=== PATIENT | female | born 1960 | race Caucasian/White ===

== ENCOUNTER 2019-02-01 21:59 | Inpatient (IN) | payer MEDICARE ==
--- NOTE | 2019-02-01 22:33 | ED ---
General Adult HPI - General Chief complaint: Urogenital Stated complaint: Fever Time Seen by Provider: 02/01/19 22:12 Source: patient, EMS Mode of arrival: EMS Limitations: no limitations - History of Present Illness Initial comments: This patient is a 58-year-old woman who states she was in usual state of health until approximately 2 hours ago. At that time the patient started feeling hot and cold. She was feeling an urge to urinate, and having dysuria as well. Onset/Timin -: hour(s) Radiation: non-radiation Quality: burning Consistency: constant Improves with: none Worsens with: none Treatments Prior to Arrival: none - Related Data Home Medications Medication Instructions Recorded Confirmed Albuterol Nebulized [Ventolin 2.5 mg INHALATION RT-Q6H PRN 06/21/15 02/01/19 Nebulized] Albuterol Sulfate [Proair Hfa] 2 puff INHALATION RT-Q6H PRN 06/21/15 02/01/19 Aspirin 81 mg PO DAILY 06/21/15 02/01/19 Atorvastatin [Lipitor] 20 mg PO HS 06/21/15 02/01/19 INSULIN ASPART (NovoLOG) [NovoLOG 30 unit SQ AC-TID 06/21/15 02/01/19 (formulary)] INSULIN ASPART (NovoLOG) [NovoLOG See Protocol SQ AC-TID 06/21/15 02/01/19 (formulary)] Metoprolol Succinate [Toprol XL] 12.5 mg PO HS 06/21/15 02/01/19 Canagliflozin [Invokana] 300 mg PO BID 02/01/19 02/01/19 Cranberry Fruit Extract [Cranberry] 200 mg PO BID PRN 02/01/19 02/01/19 Insulin Glargine [Lantus] 60 unit SQ BID 02/01/19 02/01/19 Levothyroxine Sodium [Synthroid] 125 mcg PO DAILY 02/01/19 02/01/19 Melatonin 5 mg PO HS 02/01/19 02/01/19 Omeprazole 40 mg PO QAM 02/01/19 02/01/19 Allergies Allergy/AdvReac Type Severity Reaction Status Date / Time carvedilol [From Coreg] Allergy Rash/Hives Verified 02/01/19 22:12 Review of Systems ROS Statement: Those systems with pertinent positive or pertinent negative responses have been documented in the HPI. ROS Other: All systems not noted in ROS Statement are negative. Constitutional: Reports: fever, chills, weakness (Generalized weakness) Respiratory: Denies: cough, dyspnea Cardiovascular: Denies: chest pain, palpitations, edema Gastrointestinal: Denies: abdominal pain, nausea, vomiting Genitourinary: Reports: urgency, dysuria, frequency Musculoskeletal: Reports: back pain Skin: Denies: rash Neurological: Denies: headache, weakness, numbness Past Medical History Past Medical History: Asthma, Coronary Artery Disease (CAD), Cancer, Heart Failure, COPD, Diabetes Mellitus, GERD/Reflux, Hyperlipidemia, Hypertension, Osteoarthritis (OA), Sleep Apnea/CPAP/BIPAP, Thyroid Disorder Additional Past Medical History / Comment(s): HX MIGRAINES. DONALD BREAST CA. 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 USES CPAP. History of Any Multi-Drug Resistant Organisms: None Reported Past Surgical History: Breast Surgery, Cholecystectomy, Hysterectomy, Joint Replacement, Orthopedic Surgery Additional Past Surgical History / Comment(s): D&C'S. DONALD MASTECTOMY. DONALD KNEE ARTHROSCOPIES. EXC 2 BENIGN TUMORS FROM BACK. REPAIR FX JAW CHILD, TOTAL RIGHT KNEE Past Anesthesia/Blood Transfusion Reactions: Previous Problems w/ Anesthesia, Motion Sickness, Postoperative Nausea & Vomiting (PONV) Additional Past Anesthesia/Blood Transfusion Reaction / Comment(s): TAKES LONG TIME TO AWAKEN, OCC NAUSEA. Past Psychological History: No Psychological Hx Reported Smoking Status: Former smoker Past Alcohol Use History: None Reported Past Drug Use History: None Reported - Past Family History Mother Family Medical History: Deep Vein Thrombosis (DVT) Sister(s) Family Medical History: Cancer General Exam Limitations: no limitations General appearance: alert, in no apparent distress Head exam: Present: atraumatic, normocephalic Eye exam: Present: normal appearance. Absent: scleral icterus, conjunctival injection ENT exam: Present: normal oropharynx Neck exam: Present: normal inspection, full ROM. Absent: meningismus Respiratory exam: Present: normal lung sounds bilaterally. Absent: respiratory distress, wheezes, rales, rhonchi, stridor Cardiovascular Exam: Present: normal rhythm, tachycardia (Rate approximately 120), normal heart sounds. Absent: systolic murmur, diastolic murmur, rubs, gallop GI/Abdominal exam: Present: soft. Absent: distended, tenderness, guarding, rebound, mass Extremities exam: Present: normal inspection, normal capillary refill. Absent: pedal edema, calf tenderness Back exam: Present: normal inspection. Absent: CVA tenderness (R), CVA tenderness (L) Neurological exam: Present: alert Skin exam: Present: warm, dry, intact, normal color. Absent: rash Course Vital Signs 02/01/19 02/01/19 02/02/19 22:09 23:10 00:00 Temperature 100 F H 101.2 F H 100.8 F H Pulse Rate 119 H 106 H 94 Respiratory 18 18 18 Rate Blood Pressure 143/74 134/86 113/54 O2 Sat by Pulse 97 95 97 Oximetry 02/02/19 01:08 Temperature 98.9 F Pulse Rate 97 Respiratory 17 Rate Blood Pressure 108/62 O2 Sat by Pulse 95 Oximetry EKG Findings - EKG Results: EKG: interpreted by VAUGHN, sinus rhythm, normal axis EKG shows: tachycardia (Rate 101 bpm) - Blocks, [place], Hypertrophy, ST Abn: AV and intraventricular conduction: left bundle branch block (fixed/intermittent, complete/incomplete) Medical Decision Making - Lab Data Result diagrams: 02/01/19 22:30 02/01/19 22:30 Lab Results 02/01/19 02/01/19 02/01/19 Range/Units 22:30 22:30 22:30 WBC 15.1 H (3.8-10.6) k/uL RBC 5.81 H (3.80-5.40) m/uL Hgb 16.5 H (11.4-16.0) gm/dL Hct 48.5 H (34.0-46.0) % MCV 83.3 (80.0-100.0) fL MCH 28.4 (25.0-35.0) pg MCHC 34.1 (31.0-37.0) g/dL RDW 14.7 (11.5-15.5) % Plt Count 191 (150-450) k/uL Neutrophils % (Manual) 76 % Band Neutrophils % 20 % Lymphocytes % (Manual) 3 % Monocytes % (Manual) 2 % Neutrophils # (Manual) 14.40 H (1.3-7.7) k/uL Lymphocytes # (Manual) 0.45 L (1.0-4.8) k/uL Monocytes # (Manual) 0.30 (0-1.0) k/uL Nucleated RBCs 0 (0-0) /100 WBC Manual Slide Review Performed PT (9.0-12.0) sec INR (<1.2) APTT (22.0-30.0) sec Sodium 140 (137-145) mmol/L Potassium 4.4 (3.5-5.1) mmol/L Chloride 108 H (98-107) mmol/L Carbon Dioxide 20 L (22-30) mmol/L Anion Gap 12 mmol/L BUN 22 H (7-17) mg/dL Creatinine 0.89 (0.52-1.04) mg/dL Est GFR (CKD-EPI)AfAm 82 (>60 ml/min/1.73 sqM) Est GFR (CKD-EPI)NonAf 71 (>60 ml/min/1.73 sqM) Glucose 215 H (74-99) mg/dL Plasma Lactic Acid Dixon 1.9 (0.7-2.0) mmol/L Calcium 10.0 (8.4-10.2) mg/dL Total Bilirubin 1.0 (0.2-1.3) mg/dL AST 27 (14-36) U/L ALT 16 (9-52) U/L Alkaline Phosphatase 106 (38-126) U/L Total Protein 7.2 (6.3-8.2) g/dL Albumin 3.9 (3.5-5.0) g/dL Urine Color Urine Appearance (Clear) Urine pH (5.0-8.0) Ur Specific [place] (1.001-1.035) Urine Protein (Negative) Urine Glucose (UA) (Negative) Urine Ketones (Negative) Urine Blood (Negative) Urine Nitrite (Negative) Urine Bilirubin (Negative) Urine Urobilinogen (<2.0) mg/dL Ur Leukocyte Esterase (Negative) Urine RBC (0-5) /hpf Urine WBC (0-5) /hpf Urine WBC Clumps (None) /hpf Ur Squamous Epith Cells (0-4) /hpf Urine Bacteria (None) /hpf Urine Mucus (None) /hpf 02/01/19 02/01/19 Range/Units 22:30 22:30 WBC (3.8-10.6) k/uL RBC (3.80-5.40) m/uL Hgb (11.4-16.0) gm/dL Hct (34.0-46.0) % MCV (80.0-100.0) fL MCH (25.0-35.0) pg MCHC (31.0-37.0) g/dL RDW (11.5-15.5) % Plt Count (150-450) k/uL Neutrophils % (Manual) % Band Neutrophils % % Lymphocytes % (Manual) % Monocytes % (Manual) % Neutrophils # (Manual) (1.3-7.7) k/uL Lymphocytes # (Manual) (1.0-4.8) k/uL Monocytes # (Manual) (0-1.0) k/uL Nucleated RBCs (0-0) /100 WBC Manual Slide Review PT 10.6 (9.0-12.0) sec INR 1.0 (<1.2) APTT 22.2 (22.0-30.0) sec Sodium (137-145) mmol/L Potassium (3.5-5.1) mmol/L Chloride (98-107) mmol/L Carbon Dioxide (22-30) mmol/L Anion Gap mmol/L BUN (7-17) mg/dL Creatinine (0.52-1.04) mg/dL Est GFR (CKD-EPI)AfAm (>60 ml/min/1.73 sqM) Est GFR (CKD-EPI)NonAf (>60 ml/min/1.73 sqM) Glucose (74-99) mg/dL Plasma Lactic Acid [place] (0.7-2.0) mmol/L Calcium (8.4-10.2) mg/dL Total Bilirubin (0.2-1.3) mg/dL AST (14-36) U/L ALT (9-52) U/L Alkaline Phosphatase (38-126) U/L Total Protein (6.3-8.2) g/dL Albumin (3.5-5.0) g/dL Urine Color Light Yellow Urine Appearance Cloudy H (Clear) Urine pH 5.5 (5.0-8.0) Ur Specific [place] 1.011 (1.001-1.035) Urine Protein Trace H (Negative) Urine Glucose (UA) 4+ H (Negative) Urine Ketones Negative (Negative) Urine Blood Large H (Negative) Urine Nitrite Positive H (Negative) Urine Bilirubin Negative (Negative) Urine Urobilinogen <2.0 (<2.0) mg/dL Ur Leukocyte Esterase Large H (Negative) Urine RBC 168 H (0-5) /hpf Urine WBC >182 H (0-5) /hpf Urine WBC Clumps Many H (None) /hpf Ur Squamous Epith Cells 4 (0-4) /hpf Urine Bacteria Few H (None) /hpf Urine Mucus Rare H (None) /hpf Disposition Clinical Impression: Urinary tract infection, Diabetes Disposition: ADMITTED IP TO THIS HOSP Condition: Fair Referrals: Jennifer Veras MD [Primary Care Provider] - 1-2 days
[2019-02-01 23:10] LABS: HCT 48.5 % (34.0-46.0); HGB 16.5 gm/dL (11.4-16.0); MCH 28.4 pg (25.0-35.0); MCHC 34.1 g/dL (31.0-37.0); MCV 83.3 fL (80.0-100.0); Mean Platelet Volume 6.8; Platelet Count 191 k/uL (150-450); RBC 5.81 m/uL (3.80-5.40); RDW 14.7 % (11.5-15.5); WBC 15.1 k/uL (3.8-10.6)
[2019-02-01] MEDS: SODIUM CHLORIDE 0.9% 500 ML 500 ML IV SCH (23:12)
[2019-02-01] MEDS ORDERED: ACETAMINOPHEN TAB 325 MG TAB PO STA (23:15)
[2019-02-01 23:26] LABS: Albumin 3.9 g/dL (3.5-5.0); Potassium 4.4 mmol/L (3.5-5.1); Total Protein 7.2 g/dL (6.3-8.2)
[2019-02-01 23:38] LABS: Appearance,Urine Cloudy (Clear); Bacteria,Urine Few /hpf; Bilirubin,Urine Negative (Negative); Blood,Urine Large (Negative); Color,Urine Light Yellow; Glucose,Urine (UA) 4+ (Negative); Ketones,Urine Negative (Negative); Leukocyte Esterase,Urine Large (Negative); Mucus,Urine Rare /hpf; Nitrite,Urine Positive (Negative); PH, Urine 5.5 (5.0-8.0); Partial Thromboplastin Time 22.2 sec (22.0-30.0); Protein,Urine Trace (Negative); Prothrombin Time 10.6 sec (9.0-12.0); RBC,Urine 168 /hpf (0-5); Specific Gravity,Urine 1.011 (1.001-1.035); Squamous Epithelial Cell,Urine 4 /hpf (0-4); Urobilinogen,Urine <2.0 mg/dL (<2.0); WBC,Urine >182 /hpf (0-5)
[2019-02-01] MEDS ORDERED: SODIUM CHLORIDE 0.9% 1,000 ML IV ONE (23:53)
[2019-02-01] MEDS ORDERED: INSULIN REGULAR 100 UNIT/ML VIAL SQ STA (23:53)
[2019-02-02] MEDS: SODIUM CHLORIDE 0.9% 500 ML 500 ML IV SCH (00:03)
[2019-02-02 01:35] LABS: Band Neutrophils % 20 %; Lymphocytes # (M) 0.45 k/uL (1.0-4.8); Neutrophils % (M) 76 %; Nucleated Red Blood Cells 0 /100 WBC (0-0); Total Cells Counted 200
[2019-02-02] MEDS ORDERED: ALBUTEROL NEBULIZED 2.5 MG/3 ML INHALATION PRN (02:06)
[2019-02-02 02:33] LABS: Glucose,Whole Blood 162 mg/dL (75-99)
[2019-02-02] MEDS: SODIUM CHLORIDE 0.9% 1,000 ML IV SCH ×4 (02:35→21:09)
[2019-02-02 03:17] VITALS: BMI 40.3
[2019-02-02] MEDS: LEVOTHYROXINE 125 MCG TAB PO SCH (05:51)
[2019-02-02] MEDS: INSULIN ASPART (NovoLOG) 100 UNIT/ML VIAL SQ SCH ×3 (07:51→17:34)
[2019-02-02] MEDS: NON-FORMULARY DRUG (Canagliflozin [Invokana] 300 MG) PO SCH ×3 (07:51→21:00)
[2019-02-02] MEDS: INSULIN DETEMIR (LEVEMIR) 100 UNIT/ML SYR SQ SCH ×2 (07:51→20:57)
[2019-02-02] MEDS: ASPIRIN 81 MG PO SCH (07:51)
[2019-02-02] MEDS: PANTOPRAZOLE 40 MG TABLET PO SCH (07:51)
[2019-02-02 07:59] LABS: Glucose,Whole Blood 186 mg/dL (75-99)
[2019-02-02 11:41] LABS: Glucose,Whole Blood 137 mg/dL (75-99)
[2019-02-02] MEDS: ACETAMINOPHEN TAB 325 MG TAB PO PRN ×2 (13:25→21:06)
--- NOTE | 2019-02-02 13:47 | P.HPIM ---
History of Present Illness Patient presents 58-year-old female came in with dysuria increased urinary frequency and fever chills found to have significant abnormality a urine with a highly elevated red blood cell count patient is admitted for sepsis secondary to urinary tract infection patient was comparing of right flank pain yesterday which resolved at this time which repair flank pain was sharp in nature. Patient does have leukocytosis, that is anion gap but lactic acid was not obtained patient received IV fluids. Patient is feeling much better today patient was started on Rocephin urine cultures blood cultures were obtained I'm awaiting those cultures at this time. Denied any frequent UTIs in the past Review of Systems REVIEW OF SYSTEMS: CONSTITUTIONAL: No fever, no malaise, no fatigue. HEENT: No recent visual problems or hearing problems. Denied any sore throat. CARDIOVASCULAR: No chest pain, orthopnea, PND, no palpitations, no syncope. PULMONARY: No shortness of breath, no cough, no hemoptysis. GASTROINTESTINAL: No diarrhea, no nausea, no vomiting, no abdominal pain. NEUROLOGICAL: No headaches, no weakness, no numbness. HEMATOLOGICAL: Denies any bleeding or petechiae. GENITOURINARY: As mentioned above MUSCULOSKELETAL/RHEUMATOLOGICAL: Denies any joint pain, swelling, or any muscle pain. ENDOCRINE: Denies any polyuria or polydipsia. The rest of the 14-point review of systems is negative. Past Medical History Past Medical History: Asthma, Cancer, Heart Failure, COPD, Diabetes Mellitus, GERD/Reflux, Hyperlipidemia, Hypertension, Osteoarthritis (OA), Sleep Apnea/CPAP/BIPAP, Thyroid Disorder Additional Past Medical History / Comment(s): HX MIGRAINES. DONALD BREAST CA. 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 USES CPAP. History of Any Multi-Drug Resistant Organisms: None Reported Past Surgical History: Breast Surgery, Cholecystectomy, Hysterectomy, Joint Replacement, Orthopedic Surgery Additional Past Surgical History / Comment(s): D&C'S. DONALD MASTECTOMY. DONALD KNEE ARTHROSCOPIES. EXC 2 BENIGN TUMORS FROM BACK. REPAIR FX JAW CHILD, TOTAL RIGHT KNEE Past Anesthesia/Blood Transfusion Reactions: Previous Problems w/ Anesthesia, Motion Sickness, Postoperative Nausea & Vomiting (PONV) Additional Past Anesthesia/Blood Transfusion Reaction / Comment(s): TAKES LONG TIME TO AWAKEN, OCC NAUSEA. Past Psychological History: No Psychological Hx Reported Smoking Status: Former smoker Past Alcohol Use History: None Reported Additional Past Alcohol Use History / Comment(s): SMOKED TIL 2002 Past Drug Use History: None Reported - Past Family History Mother Family Medical History: Deep Vein Thrombosis (DVT) Sister(s) Family Medical History: Cancer Medications and Allergies Home Medications Medication Instructions Recorded Confirmed Type Albuterol Nebulized [Ventolin 2.5 mg INHALATION RT-Q6H PRN 06/21/15 02/01/19 History Nebulized] Albuterol Sulfate [Proair Hfa] 2 puff INHALATION RT-Q6H PRN 06/21/15 02/01/19 History Aspirin 81 mg PO DAILY 06/21/15 02/01/19 History Atorvastatin [Lipitor] 20 mg PO HS 06/21/15 02/01/19 History INSULIN ASPART (NovoLOG) [NovoLOG 30 unit SQ AC-TID 06/21/15 02/01/19 History (formulary)] INSULIN ASPART (NovoLOG) [NovoLOG See Protocol SQ AC-TID 06/21/15 02/01/19 History (formulary)] Metoprolol Succinate [Toprol XL] 12.5 mg PO HS 06/21/15 02/01/19 History Canagliflozin [Invokana] 300 mg PO BID 02/01/19 02/01/19 History Cranberry Fruit Extract [Cranberry] 200 mg PO BID PRN 02/01/19 02/01/19 History Insulin Glargine [Lantus] 60 unit SQ BID 02/01/19 02/01/19 History Levothyroxine Sodium [Synthroid] 125 mcg PO DAILY 02/01/19 02/01/19 History Melatonin 5 mg PO HS 02/01/19 02/01/19 History Omeprazole 40 mg PO QAM 02/01/19 02/01/19 History Allergies Allergy/AdvReac Type Severity Reaction Status Date / Time carvedilol [From Coreg] Allergy Rash/Hives Verified 02/01/19 22:12 Physical Exam Vitals: Vital Signs Temp Pulse Pulse Resp BP BP Pulse Ox 02/02/19 06:08 98.2 F 87 16 100/63 98 02/02/19 02:58 97.8 F 90 16 114/63 98 02/02/19 02:17 99.4 F 90 18 94/55 100 02/02/19 01:08 98.9 F 97 17 108/62 95 02/02/19 00:00 100.8 F H 94 18 113/54 97 02/01/19 23:10 101.2 F H 106 H 18 134/86 95 02/01/19 22:09 100 F H 119 H 18 143/74 97 Intake and Output 02/01/19 02/02/19 02/02/19 22:59 06:59 14:59 Intake Total 200 Balance 200 Intake: Oral 200 Other: Voiding Method Toilet Toilet Toilet Weight 106.594 kg PHYSICAL EXAMINATION: GENERAL: The patient is alert and oriented x3, not in any acute distress. Well developed, well nourished. HEENT: Pupils are round and equally reacting to light. EOMI. No scleral icterus. No conjunctival pallor. Normocephalic, atraumatic. No pharyngeal erythema. No thyromegaly. CARDIOVASCULAR: S1 and S2 present. No murmurs, rubs, or gallops. PULMONARY: Chest is clear to auscultation, no wheezing or crackles. ABDOMEN: Soft, nontender, nondistended, normoactive bowel sounds. No palpable organomegaly. MUSCULOSKELETAL: No joint swelling or deformity. EXTREMITIES: No cyanosis, clubbing, or pedal edema. NEUROLOGICAL: Gross neurological examination did not reveal any focal deficits. SKIN: No rashes. Results CBC & Chem 7: 02/01/19 22:30 02/01/19 22:30 Labs: Abnormal Lab Results - Last 24 Hours (Table) 02/01/19 02/01/19 02/01/19 Range/Units 22:30 22:30 22:30 WBC 15.1 H (3.8-10.6) k/uL RBC 5.81 H (3.80-5.40) m/uL Hgb 16.5 H (11.4-16.0) gm/dL Hct 48.5 H (34.0-46.0) % Neutrophils # (Manual) 14.40 H (1.3-7.7) k/uL Lymphocytes # (Manual) 0.45 L (1.0-4.8) k/uL Chloride 108 H (98-107) mmol/L Carbon Dioxide 20 L (22-30) mmol/L BUN 22 H (7-17) mg/dL Glucose 215 H (74-99) mg/dL POC Glucose (mg/dL) (75-99) mg/dL Urine Appearance Cloudy H (Clear) Urine Protein Trace H (Negative) Urine Glucose (UA) 4+ H (Negative) Urine Blood Large H (Negative) Urine Nitrite Positive H (Negative) Ur Leukocyte Esterase Large H (Negative) Urine RBC 168 H (0-5) /hpf Urine WBC >182 H (0-5) /hpf Urine WBC Clumps Many H (None) /hpf Urine Bacteria Few H (None) /hpf Urine Mucus Rare H (None) /hpf 02/02/19 02/02/19 02/02/19 Range/Units 02:31 07:50 11:39 WBC (3.8-10.6) k/uL RBC (3.80-5.40) m/uL Hgb (11.4-16.0) gm/dL Hct (34.0-46.0) % Neutrophils # (Manual) (1.3-7.7) k/uL Lymphocytes # (Manual) (1.0-4.8) k/uL Chloride (98-107) mmol/L Carbon Dioxide (22-30) mmol/L BUN (7-17) mg/dL Glucose (74-99) mg/dL POC Glucose (mg/dL) 162 H 186 H 137 H (75-99) mg/dL Urine Appearance (Clear) Urine Protein (Negative) Urine Glucose (UA) (Negative) Urine Blood (Negative) Urine Nitrite (Negative) Ur Leukocyte Esterase (Negative) Urine RBC (0-5) /hpf Urine WBC (0-5) /hpf Urine WBC Clumps (None) /hpf Urine Bacteria (None) /hpf Urine Mucus (None) /hpf Microbiology - Last 24 Hours (Table) 02/01/19 22:30 Urine Culture - Preliminary Urine,Clean Catch Thrombosis Risk Factor Assmnt - Choose All That Apply Any of the Below Risk Factors Present?: Yes Each Factor Represents 1 point: Abnormal pulmonary function (COPD), Age 41-60 years, Obesity (BMI >25) Other Risk Factors: No Other congenital or acquired thrombophilia - If yes, enter type in comment: No Thrombosis Risk Factor Assessment Total Risk Factor Score: 3 Thrombosis Risk Factor Assessment Level: Moderate Risk Assessment and Plan Plan: Sepsis secondary to urinary tract infection patient probably has pallor nephritis a lot of ultrasound to make sure there is no nephrolithiasis that is leading to pyelonephritis or urinary obstruction that is leading to pyelonephritis. Patient will be continued on Rocephin and we will increase it to 2 g daily elevated urine cultures and blood cultures -Type 2 diabetes mellitus uncontrolled blood sugars on her home regimen which will be resumed -Hypothyroidism -Hyperlipidemia -Hypotension secondary to sepsis patient will be continued on IV fluids and cut down the IV fluids 100 mL per hour DVT prophylaxis early ambulation GI prophylaxis with Pepcid
--- NOTE | 2019-02-02 16:05 | US ---
EXAMINATION TYPE: US kidneys/renal and bladder DATE OF EXAM: 02/02/2019 COMPARISON: NONE CLINICAL HISTORY: hydronephrosis. EXAM MEASUREMENTS: Right Kidney: 10.8 x 5.9 x 5.1 cm Left Kidney: 11.3 x 6.0 x 4.8 cm Morbidly obese patient, technically difficult study. Right Kidney: cyst noted measuring 1.6 x 1.2 x 1.1cm Left Kidney: 6.0 x 5.0 x 5.0cm cyst, mid possible cyst with some internal echoes measuring 2.1 x 1.5 x 1.5cm Bladder: wnl IMPRESSION: 1. Complex appearing left renal cysts containing internal echoes
[2019-02-02 17:20] LABS: Glucose,Whole Blood 100 mg/dL (75-99)
[2019-02-02 20:42] LABS: Glucose,Whole Blood 177 mg/dL (75-99)
[2019-02-02] MEDS: FAMOTIDINE 20 MG TAB PO SCH (20:57)
[2019-02-02] MEDS: ATORVASTATIN 20 MG TAB PO SCH (20:57)
[2019-02-02] MEDS: METOPROLOL SUCCINATE (ER) 25 MG TAB.ER.24H PO SCH (20:57)
[2019-02-02] MEDS: MELATONIN 5 MG TABLET PO SCH (20:57)
[2019-02-03] MEDS: LEVOTHYROXINE 125 MCG TAB PO SCH (05:55)
[2019-02-03 07:12] LABS: Glucose,Whole Blood 113 mg/dL (75-99)
[2019-02-03] MEDS: INSULIN ASPART (NovoLOG) 100 UNIT/ML VIAL SQ SCH ×3 (07:52→17:28)
[2019-02-03] MEDS: FAMOTIDINE 20 MG TAB PO SCH ×2 (07:53→22:44)
[2019-02-03] MEDS: PANTOPRAZOLE 40 MG TABLET PO SCH (07:53)
[2019-02-03] MEDS: ASPIRIN 81 MG PO SCH (07:53)
[2019-02-03] MEDS: INSULIN DETEMIR (LEVEMIR) 100 UNIT/ML SYR SQ SCH ×2 (07:57→22:44)
[2019-02-03] MEDS: SODIUM CHLORIDE 0.9% 1,000 ML IV SCH ×2 (07:57→22:50)
[2019-02-03] MEDS: ONDANSETRON 4 MG/2 ML VIAL IVP PRN (09:38)
[2019-02-03] MEDS: NON-FORMULARY DRUG (Canagliflozin [Invokana] 300 MG) PO SCH (10:03)
[2019-02-03 10:33] LABS: Glucose,Whole Blood 199 mg/dL (75-99)
--- NOTE | 2019-02-03 10:39 | CDI ---
Documentation Clarification Form Date: 02/03/2019 10:30:08 AM From: Silvana Foster CCS, CCDS Admit Date: 02/02/2019 4:04:00 PM Patient Name: Karrie Garcia Visit Number: [id number] Discharge Date: ATTENTION: The Clinical Documentation Specialists (CDI) and [facility] Coding Staff appreciate your assistance in clarifying documentation. Please respond to the clarification below the line at the bottom and electronically sign. The CDI & [facility] Coding staff will review the response and follow-up if needed. Please note: Queries are made part of the Legal Health Record. If you have any questions, please contact the author of this message via ITS. Dr. Bean Dean: Per the History & Physical: "Type 2 diabetes mellitus uncontrolled blood sugars on her home regimen which will be resumed." History/Risk Factors: DM II, Hypertension, CAD w/stent, Hypothyroidism, GERD, COPD, former smoker. Clinical Indicators: Presented with incureased urinary frequency & fever & chills. Diagnosed with Sepsis secondary to a UTI, started on IV antibiotics. LAB: Blood Glucose: 162^ - 186^ - 137^ - 100^ - 177^ - 113^ US Abdomen/Bladder: Complex appearing left renal cysts containing internal echoes. Treatment: IV Rocephin, IV fluid bolus, Insulin sq, INH Albuterol In order to capture the severity of Illness and necessary documentation specificity, please clarify: DM Type 2 With or Without Hyperglycemia Other, please specify Unable to Determine (Last Revision: March 2017) DM Type 2 Without Hyperglycemia MTDD
[2019-02-03 12:09] LABS: Glucose,Whole Blood 141 mg/dL (75-99)
--- NOTE | 2019-02-03 12:50 | P.PN ---
Subjective Progress Note Date: 02/03/19 Principal diagnosis: This is a pleasant 58-year-old female was recently admitted for sepsis secondary to urinary tract infection and is being closely monitored. Patient states that she had been having some pain with urination as well as frequency with fever and chills. Patient states that the right flank pain has resolved and denies any CVA tenderness at this time. Patient is having a little bit of nausea and states that her acid reflux is acting up this morning. Patient is currently on Pepcid. Zofran was ordered when necessary. Patient states that she has been urinating with no difficulty and the pain has lessened. Patient had a regular bowel movement this morning. Patient denies any chest pain, shortness of breath, or palpitations at this time. Patient is afebrile. Patient's urine culture and blood cultures came back with gram-negative bacilli. Awaiting fi nalized cultures. Patient is currently on IV Rocephin. Patient denies any vomiting or diarrhea at this time. Guarded prognosis. Objective - Vital Signs Vital signs: Vital Signs Temp 97.7 F 02/03/19 05:14 Pulse 69 02/03/19 05:14 Resp 18 02/03/19 05:14 BP 112/72 02/03/19 05:14 Pulse Ox 97 02/03/19 05:14 Intake & Output 02/02/19 02/03/19 02/03/19 18:59 06:59 18:59 Intake Total 1080 Balance 1080 Intake: Oral 1080 Other: Voiding Method Toilet Toilet # Voids 2 3 - Exam Gen: This is a 58-year-old female lying in bed in no acute distress. Vital signs are stable. Blood pressure is 112/72, pulse is 69, temp is 97.7F, res pirations are 18, oxygen is 97% on room air. HEENT: Head is atraumatic, normocephalic. Pupils equal, round. Sclerae is anicteric. NECK: Supple. No JVD. No lymphadenopathy. No thyromegaly. LUNGS: Clear to auscultation. No wheezes or rhonchi. No intercostal retractions. HEART: Regular rate and rhythm. No murmur. ABDOMEN: Soft. Bowel sounds are present. Obese. No masses. No tenderness. No CVA tenderness noted on exam. EXTREMITIES: No pedal edema. No calf tenderness. NEUROLOGICAL: Patient is awake, alert and oriented x3. Cranial nerves 2 through 12 are grossly intact. Gait is steady - Labs CBC & Chem 7: 02/01/19 22:30 02/01/19 22:30 Labs: Abnormal Lab Results - Last 24 Hours (Table) 02/02/19 02/02/19 02/03/19 Range/Units 17:10 20:40 06:58 POC Glucose (mg/dL) 100 H 177 H 113 H (75-99) mg/dL 02/03/19 02/03/19 Range/Units 10:04 11:52 POC Glucose (mg/dL) 199 H 141 H (75-99) mg/dL Microbiology - Last 24 Hours (Table) 02/01/19 22:30 Urine Culture - Preliminary Urine,Clean Catch Gram Neg Bacilli 02/01/19 22:30 Blood Culture - Final Blood 02/01/19 22:30 Blood Culture Gram Stain - Preliminary Blood Blood Culture - Preliminary Gram Neg Bacilli Assessment and Plan Assessment: Sepsis secondary to urinary tract infection. Patient probably has pyelonephritis. An ultrasound was ordered to make sure there is no nephrolithiasis that may be leading to pyelonephritis or urinary obstruction that's leading to pyelonephritis. Patient's currently on Rocephin 2 g daily. Urine cultures and blood cultures thus far show gram-negative bacilli and awaiting finalization. Ultrasound of the kidneys showed complex appearing left renal cysts containing internal echoes also a cyst noted on the right kidney Diabetes mellitus type 2: Uncontrolled blood sugars. Patient will be resumed on her home regimen. Continue to monitor closely with blood sugars before meals at bedtime Hypothyroidism Hyperlipidemia Hypotension secondary to sepsis. Patient is currently on IV fluids at 100 mL per hour. We'll continue to monitor vital signs closely DVT prophylaxis: Early ambulation GI prophylaxis: with Pepcid Recommendations and discussion Continue current medications, management, and symptomatically treatment. Will continue to monitor labs and vital signs closely. Awaiting finalized cultures. Repeat blood cultures drawn today and pending at this time. Continue IV Rocephin for antibiotic therapy. Guarded prognosis. Further recommendations to follow. Possible discharge in 24-48 hours.
[2019-02-03 17:04] LABS: Glucose,Whole Blood 94 mg/dL (75-99)
[2019-02-03 22:05] LABS: Glucose,Whole Blood 119 mg/dL (75-99)
[2019-02-03] MEDS: ATORVASTATIN 20 MG TAB PO SCH (22:44)
[2019-02-03] MEDS: MELATONIN 5 MG TABLET PO SCH (22:44)
[2019-02-03] MEDS: METOPROLOL SUCCINATE (ER) 25 MG TAB.ER.24H PO SCH (22:44)
[2019-02-04] MEDS: LEVOTHYROXINE 125 MCG TAB PO SCH (05:42)
[2019-02-04 07:23] LABS: Glucose,Whole Blood 135 mg/dL (75-99)
[2019-02-04] MEDS: INSULIN DETEMIR (LEVEMIR) 100 UNIT/ML SYR SQ SCH ×2 (07:38→21:12)
[2019-02-04] MEDS: PANTOPRAZOLE 40 MG TABLET PO SCH (07:38)
[2019-02-04] MEDS: ASPIRIN 81 MG PO SCH (07:39)
[2019-02-04] MEDS: FAMOTIDINE 20 MG TAB PO SCH ×2 (07:39→21:11)
[2019-02-04] MEDS: NON-FORMULARY DRUG (Canagliflozin [Invokana] 300 MG) PO SCH (07:39)
[2019-02-04] MEDS: SODIUM CHLORIDE 0.9% 1,000 ML IV SCH ×2 (07:40→15:37)
[2019-02-04] MEDS: INSULIN ASPART (NovoLOG) 100 UNIT/ML VIAL SQ SCH ×3 (07:47→21:13)
[2019-02-04 09:40] LABS: Basophils # (A) 0.1 k/uL (0-0.2); Basophils % (A) 1 %; Eosinophils # (A) 0.2 k/uL (0-0.7); Eosinophils % (A) 2 %; HCT 46.3 % (34.0-46.0); HGB 14.7 gm/dL (11.4-16.0); Lymphocytes # (A) 3.7 k/uL (1.0-4.8); Lymphocytes % (A) 31 %; MCH 26.8 pg (25.0-35.0); MCHC 31.8 g/dL (31.0-37.0); MCV 84.4 fL (80.0-100.0); Mean Platelet Volume 6.9; Monocytes # (A) 0.9 k/uL (0-1.0); Monocytes % (A) 7 %; Neutrophils % (A) 58 %; Platelet Count 213 k/uL (150-450); RBC 5.48 m/uL (3.80-5.40); RDW 15.7 % (11.5-15.5); WBC 12.1 k/uL (3.8-10.6)
[2019-02-04 10:02] LABS: Calcium 9.9 mg/dL (8.4-10.2); Potassium 4.4 mmol/L (3.5-5.1)
[2019-02-04 12:16] LABS: Glucose,Whole Blood 139 mg/dL (75-99)
--- NOTE | 2019-02-04 15:58 | P.PN ---
Subjective Progress Note Date: 02/04/19 Principal diagnosis: This is a pleasant 58-year-old female was recently admitted for sepsis secondary to urinary tract infection and is being closely monitored. Patient states that she had been having some pain with urination as well as frequency with fever and chills. Patient states that the right flank pain has resolved and denies any CVA tenderness at this time. Patient is having a little bit of nausea and states that her acid reflux is acting up this morning. Patient is currently on Pepcid. Zofran was ordered when necessary. Patient states that she has been urinating with no difficulty and the pain has lessened. Patient had a regular bowel movement this morning. Patient denies any chest pain, shortness of breath, or palpitations at this time. Patient is afebrile. Patient's urine culture and blood cultures came back with gram-negative bacilli. Awaiting fi nalized cultures. Patient is currently on IV Rocephin. Patient denies any vomiting or diarrhea at this time. Guarded prognosis. 02/04/2019 Patient is lying in bed in no acute distress. Patient was recently admitted for sepsis secondary to urinary tract infection and is currently on IV Rocephin. Blood and urine cultures from 02/01/2019 have resulted and E. coli and at this time we are consult taking infectious disease for IV antibiotic recommendations. Recent blood cultures that were redrawn are preliminary and showing no growth after 24 hours. Finalization is pending. Patient denies any shortness of breath, chest pain, or palpitations. Patient denies any CVA tenderness. She has been afebrile. Patient did have some nausea yesterday and has subsided. She denies any nausea or vomiting at this time and is tolerating diet. Will continue to monitor closely. Objective - Vital Signs Vital signs: Vital Signs Temp 98.0 F 02/04/19 14:37 Pulse 63 02/04/19 14:37 Resp 16 02/04/19 14:37 BP 126/65 02/04/19 14:37 Pulse Ox 97 02/04/19 14:37 Intake & Output 02/03/19 02/04/19 02/04/19 18:59 06:59 18:59 Intake Total 540 800 540 Balance 540 800 540 Intake: Intake, IV Titration 800 Amount Sodium Chloride 0.9% 1, 800 000 ml @ 100 mls/hr IV . Q10H FORMERLY [facility], [facility]–1983 Rx#:[id number] Oral 540 540 Other: Voiding Method Toilet Toilet Toilet # Voids 1 1 3 - Exam Gen: This is a 58-year-old female lying in bed in no acute distress. Vital signs are stable. Blood pressure is 114/73, pulse is 67, temp is 98.2F, respirations are 16, oxygen is 96% on room air. HEENT: Head is atraumatic, normocephalic. Pupils equal, round. Sclerae is anicteric. NECK: Supple. No JVD. No lymphadenopathy. No thyromegaly. LUNGS: Clear to auscultation. No wheezes or rhonchi. No intercostal retractions. HEART: Regular rate and rhythm. No murmur. ABDOMEN: Soft. Bowel sounds are present. Obese. No masses. No tenderness. No CVA tenderness noted on exam. EXTREMITIES: No pedal edema. No calf tenderness. NEUROLOGICAL: Patient is awake, alert and oriented x3. Cranial nerves 2 through 12 are grossly intact. Gait is steady - Labs CBC & Chem 7: 02/04/19 09:11 02/04/19 09:11 Labs: Abnormal Lab Results - Last 24 Hours (Table) 02/03/19 02/04/19 02/04/19 Range/Units 22:03 06:56 09:11 WBC 12.1 H (3.8-10.6) k/uL RBC 5.48 H (3.80-5.40) m/uL Hct 46.3 H (34.0-46.0) % RDW 15.7 H (11.5-15.5) % BUN (7-17) mg/dL Glucose (74-99) mg/dL POC Glucose (mg/dL) 119 H 135 H (75-99) mg/dL 02/04/19 02/04/19 Range/Units 09:11 11:52 WBC (3.8-10.6) k/uL RBC (3.80-5.40) m/uL Hct (34.0-46.0) % RDW (11.5-15.5) % BUN 21 H (7-17) mg/dL Glucose 191 H (74-99) mg/dL POC Glucose (mg/dL) 139 H (75-99) mg/dL Microbiology - Last 24 Hours (Table) 02/01/19 22:30 Urine Culture - Final Urine,Clean Catch Escherichia coli 02/03/19 07:14 Blood Culture - Preliminary Blood No Growth after 24 hours 02/01/19 22:30 Blood Culture Gram Stain - Final Blood Blood Culture - Final Escherichia coli 02/02/19 14:54 Blood Culture - Preliminary Blood No Growth after 24 hours Assessment and Plan Assessment: Sepsis secondary to urinary tract infection. Patient probably has pyelonephritis. An ultrasound was ordered to make sure there is no nephrolithiasis that may be leading to pyelonephritis or urinary obstruction that's leading to pyelonephritis. Patient's currently on Rocephin 2 g daily. Urine cultures and blood cultures thus far show E. coli. Repeat blood culture show no growth in the last 24 hours and awaiting finalization. Ultrasound of the kidneys showed complex appearing left renal cysts containing internal echoes also a cyst noted on the right kidney Diabetes mellitus type 2: Uncontrolled blood sugars. Patient will be resumed on her home regimen. Continue to monitor closely with blood sugars before meals at bedtime Hypothyroidism Hyperlipidemia Hypotension secondary to sepsis. Patient is currently on IV fluids at 100 mL per hour. We'll continue to monitor vital signs closely DVT prophylaxis: Early ambulation GI prophylaxis: with Pepcid Recommendations and discussion Continue current medications, management, and symptomatically treatment. Will continue to monitor labs and vital signs closely. Awaiting finalized cultures o f the repeat blood cultures drawn. Continue IV Rocephin for antibiotic therapy. Infectious disease was consulted and will await report. Guarded prognosis. Further recommendations to follow. Possible discharge in 24-48 hours.
[2019-02-04 17:01] LABS: Glucose,Whole Blood 96 mg/dL (75-99)
[2019-02-04 21:10] LABS: Glucose,Whole Blood 154 mg/dL (75-99)
[2019-02-04] MEDS: METOPROLOL SUCCINATE (ER) 25 MG TAB.ER.24H PO SCH (21:10)
[2019-02-04] MEDS: MELATONIN 5 MG TABLET PO SCH (21:11)
[2019-02-04] MEDS: ATORVASTATIN 20 MG TAB PO SCH (21:11)
--- NOTE | 2019-02-04 22:50 | P.CONS ---
History of Present Illness - Reason for Consult Consult date: 02/04/19 Bacteremia Requesting physician: Caden Gil - Chief Complaint Fever with rigors and chills and dysuria 1 day - History of Present Illness Patient is 58-year-old female presenting to the ER at [facility] with 1 day history of urinary frequency and some dysuria patient said her symptoms started that morning and she thought she was coming up for the UTI he started getting a lot of fluid and cranberry juice later that evening the patient started having rigors and chills, and not feeling well subsequently presented to [facility] ER patient was evaluated by the physician on arrival to the ER the patient was febrile with a temperature of 10 2F, patient did have elevated white count of 15,000 patient did have a positive UA she was d iagnosed with a UTI with possible sepsis patient has been treated with IV Rocephin and ultrasound of the kidney A today shows complex appearing cyst on the left kidney with a blood cultures remained positive with gram-negative bacilli that prompted this infectious disease consultation Review of Systems Positive points has been mentioned in HPI rest of the systems are negative Past Medical History Past Medical History: Asthma, Cancer, Heart Failure, COPD, Diabetes Mellitus, GERD/Reflux, Hyperlipidemia, Hypertension, Osteoarthritis (OA), Sleep Apnea/CPAP/BIPAP, Thyroid Disorder Additional Past Medical History / Comment(s): HX MIGRAINES. DONALD BREAST CA. 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 USES CPAP. History of Any Multi-Drug Resistant Organisms: None Reported Past Surgical History: Breast Surgery, Cholecystectomy, Hysterectomy, Joint Replacement, Orthopedic Surgery Additional Past Surgical History / Comment(s): D&C'S. DONALD MASTECTOMY. DONALD KNEE ARTHROSCOPIES. EXC 2 BENIGN TUMORS FROM BACK. REPAIR FX JAW CHILD, TOTAL RIGHT KNEE Past Anesthesia/Blood Transfusion Reactions: Previous Problems w/ Anesthesia, Motion Sickness, Postoperative Nausea & Vomiting (PONV) Additional Past Anesthesia/Blood Transfusion Reaction / Comm: TAKES LONG TIME TO AWAKEN, OCC NAUSEA. Past Psychological History: No Psychological Hx Reported Smoking Status: Former smoker Past Alcohol Use History: None Reported Additional Past Alcohol Use History / Comment(s): SMOKED 2002 Past Drug Use History: None Reported - Past Family History Mother Family Medical History: Deep Vein Thrombosis (DVT) Sister(s) Family Medical History: Cancer Medications and Allergies Home Medications Medication Instructions Recorded Confirmed Type Albuterol Nebulized [Ventolin 2.5 mg INHALATION RT-Q6H PRN 06/21/15 02/01/19 History Nebulized] Albuterol Sulfate [Proair Hfa] 2 puff INHALATION RT-Q6H PRN 06/21/15 02/01/19 History Aspirin 81 mg PO DAILY 06/21/15 02/01/19 History Atorvastatin [Lipitor] 20 mg PO HS 06/21/15 02/01/19 History INSULIN ASPART (NovoLOG) [NovoLOG 30 unit SQ AC-TID 06/21/15 02/01/19 History (formulary)] INSULIN ASPART (NovoLOG) [NovoLOG See Protocol SQ AC-TID 06/21/15 02/01/19 History (formulary)] Metoprolol Succinate [Toprol XL] 12.5 mg PO HS 06/21/15 02/01/19 History Canagliflozin [Invokana] 300 mg PO BID 02/01/19 02/01/19 History Cranberry Fruit Extract [Cranberry] 200 mg PO BID PRN 02/01/19 02/01/19 History Insulin Glargine [Lantus] 60 unit SQ DAILY 02/01/19 02/02/19 History Levothyroxine Sodium [Synthroid] 125 mcg PO DAILY 02/01/19 02/01/19 History Melatonin 5 mg PO HS 02/01/19 02/01/19 History Omeprazole 40 mg PO QAM 02/01/19 02/01/19 History Allergies Allergy/AdvReac Type Severity Reaction Status Date / Time carvedilol [From Coreg] Allergy Rash/Hives Verified 02/01/19 22:12 Physical Exam Vitals: Vital Signs Temp Pulse Resp BP BP Pulse Ox 02/04/19 06:58 98.2 F 67 114/73 96 02/03/19 22:05 98.4 F 80 16 143/87 97 02/03/19 14:05 98.1 F 73 16 119/74 96 Intake and Output 02/03/19 02/04/19 02/04/19 22:59 06:59 14:59 Intake Total 540 800 Balance 540 800 Intake: Intake, IV Titration 800 Amount Sodium Chloride 0.9% 1, 800 000 ml @ 100 mls/hr IV . Q10H [facility] Rx#:[id number] Oral 540 Other: Voiding Method Toilet Toilet Toilet # Voids 1 GENERAL DESCRIPTION: Middle-aged female lying in bed, no distress. No tachypnea or accessory muscle of respiration use. HEENT: Shows Pallor , no scleral icterus. Oral mucous membrane is dry. No pharyngeal erythema or thrush NECK: Trachea central, no thyromegaly. LUNGS: Unlabored breathing. Clear to auscultation anteriorly. No wheeze or crackle. HEART: S1, S2, regular rate and rhythm. No loud murmur ABDOMEN: Soft, no tenderness , guarding or rigidity, no organomegaly EXTREMITIES: No edema of feet. SKIN: No rash, no masses palpable. NEUROLOGICAL: The patient is awake, alert, oriented x3, mood and affect normal. Results CBC & Chem 7: 02/04/19 09:11 02/04/19 09:11 Labs: Abnormal Lab Results - Last 24 Hours (Table) 02/03/19 02/03/19 02/04/19 Range/Units 11:52 22:03 06:56 WBC (3.8-10.6) k/uL RBC (3.80-5.40) m/uL Hct (34.0-46.0) % RDW (11.5-15.5) % BUN (7-17) mg/dL Glucose (74-99) mg/dL POC Glucose (mg/dL) 141 H 119 H 135 H (75-99) mg/dL 02/04/19 02/04/19 Range/Units 09:11 09:11 WBC 12.1 H (3.8-10.6) k/uL RBC 5.48 H (3.80-5.40) m/uL Hct 46.3 H (34.0-46.0) % RDW 15.7 H (11.5-15.5) % BUN 21 H (7-17) mg/dL Glucose 191 H (74-99) mg/dL POC Glucose (mg/dL) (75-99) mg/dL Microbiology - Last 24 Hours (Table) 02/03/19 07:14 Blood Culture - Preliminary Blood No Growth after 24 hours 02/01/19 22:30 Blood Culture Gram Stain - Final Blood Blood Culture - Final Escherichia coli 02/02/19 14:54 Blood Culture - Preliminary Blood No Growth after 24 hours 02/01/19 22:30 Urine Culture - Preliminary Urine,Clean Catch Gram Neg Bacilli 02/01/19 22:30 Blood Culture - Final Blood Assessment and Plan Assessment: 1-patient presented to hospital with sepsis in this patient who did have a fever or elevated white count source is likely pyelonephritis-from an enteric gram- negative pathogen that is E.coli that pt is currently growing both in the blood in the urine and it is sensitive pathogen 2-complex left kidney cyst that'll need further workup (1) Sepsis Current Visit: Yes Status: Acute Code(s): A41.9 - SEPSIS, UNSPECIFIED ORGANISM SNOMED Code(s): 40096379 (2) Positive blood culture Current Visit: Yes Status: Acute Code(s): R78.81 - BACTEREMIA SNOMED Code(s): 016008688 (3) Urinary tract infection Current Visit: Yes Status: Acute Code(s): N39.0 - URINARY TRACT INFECTION, SITE NOT SPECIFIED SNOMED Code(s): 26273883 Plan: 1-Rocephin 2 g IV piggyback daily 2-IV fluid 3-urology evaluation 4-patient continued to improve to finish therapy with oral Cipro 500 mg twice a day for another 12 days and close outpatient follow-up we will follow on clinical condition and culture to further adjust medication if needed Thank you for this consultation will follow this patient along with you Time with Patient: Greater than 30
[2019-02-05] MEDS: SODIUM CHLORIDE 0.9% 1,000 ML IV SCH ×2 (05:36→14:44)
[2019-02-05] MEDS: LEVOTHYROXINE 125 MCG TAB PO SCH (05:36)
[2019-02-05 07:09] LABS: Glucose,Whole Blood 119 mg/dL (75-99)
[2019-02-05] MEDS: ASPIRIN 81 MG PO SCH (07:37)
[2019-02-05] MEDS: PANTOPRAZOLE 40 MG TABLET PO SCH (07:37)
[2019-02-05] MEDS: NON-FORMULARY DRUG (Canagliflozin [Invokana] 300 MG) PO SCH (07:37)
[2019-02-05] MEDS: FAMOTIDINE 20 MG TAB PO SCH (07:37)
[2019-02-05] MEDS: INSULIN ASPART (NovoLOG) 100 UNIT/ML VIAL SQ SCH ×3 (07:37→17:41)
[2019-02-05] MEDS: INSULIN DETEMIR (LEVEMIR) 100 UNIT/ML SYR SQ SCH ×2 (07:38→20:57)
[2019-02-05 12:14] LABS: Glucose,Whole Blood 131 mg/dL (75-99)
--- NOTE | 2019-02-05 16:16 | PN ---
PROGRESS NOTE DATE OF SERVICE: 02/05/2019 This 58-year-old woman was admitted with UTI, sepsis, is being closely monitored. Patient also had a complex cyst on the left kidney. E coli grown from the culture. Patient on IV antibiotics. Infectious Disease is following the patient closely. No chest pain. No palpitations. No fever. EXAM: Alert and oriented times three. Pulse 70. Blood pressure 120/72, respirations 16, temperature 98 degrees, pulse ox 98% on room air. Conjunctivae normal. Neck: No JVD. CARDIOVASCULAR: S1, S2 muffled. RESPIRATORY: Breath sounds diminished in the bases. No rhonchi. No crackles. Abdomen is soft, nontender. Legs: No edema. No swelling. LABS: Accu-Cheks 154/90. WBC is 12.1. ASSESSMENT: 1. Acute urinary tract infection with sepsis present on admission with E coli. 2. Left kidney complex cyst. 3. Diabetes mellitus type 2. 4. Hypothyroidism. 5. Hyperlipidemia. 6. Hypotension secondary to sepsis. 7. Deep vein thrombosis prophylaxis. 8. Gastrointestinal prophylaxis. RECOMMENDATIONS AND DISCUSSION: Recommend to continue current medications, management and symptomatic treatment. Continue with monitoring. Continue with IV antibiotics. Closely follow with Infectious Disease. Guarded prognosis. Further recommendations to follow. Patient also requires urology evaluation as an outpatient. MMODL / IJN: [id number] /
[2019-02-05 17:31] LABS: Glucose,Whole Blood 145 mg/dL (75-99)
[2019-02-05 20:34] LABS: Glucose,Whole Blood 153 mg/dL (75-99)
[2019-02-05] MEDS: METOPROLOL SUCCINATE (ER) 25 MG TAB.ER.24H PO SCH (20:56)
[2019-02-05] MEDS: ATORVASTATIN 20 MG TAB PO SCH (20:56)
[2019-02-05] MEDS: MELATONIN 5 MG TABLET PO SCH (20:57)
[2019-02-06 00:59] VITALS: RESP 18
[2019-02-06] MEDS: SODIUM CHLORIDE 0.9% 1,000 ML IV SCH ×3 (01:15→21:23)
[2019-02-06] MEDS: LEVOTHYROXINE 125 MCG TAB PO SCH (05:51)
[2019-02-06 07:22] LABS: Glucose,Whole Blood 140 mg/dL (75-99)
[2019-02-06] MEDS: INSULIN ASPART (NovoLOG) 100 UNIT/ML VIAL SQ SCH ×3 (07:36→17:16)
[2019-02-06] MEDS: ASPIRIN 81 MG PO SCH (07:37)
[2019-02-06] MEDS: PANTOPRAZOLE 40 MG TABLET PO SCH (07:37)
[2019-02-06] MEDS: INSULIN DETEMIR (LEVEMIR) 100 UNIT/ML SYR SQ SCH ×2 (07:37→21:17)
[2019-02-06] MEDS: NON-FORMULARY DRUG (Canagliflozin [Invokana] 300 MG) PO SCH (07:45)
[2019-02-06] MEDS: ONDANSETRON 4 MG/2 ML VIAL IVP PRN (08:01)
[2019-02-06] MEDS ORDERED: FAMOTIDINE 20 MG TAB PO SCH (09:00)
[2019-02-06] MEDS: DOCUSATE 100 MG CAP PO SCH (11:54)
[2019-02-06 11:59] LABS: Glucose,Whole Blood 126 mg/dL (75-99)
[2019-02-06 17:10] LABS: Glucose,Whole Blood 89 mg/dL (75-99)
[2019-02-06] MEDS ORDERED: INSULIN ASPART (NovoLOG) 100 UNIT/ML VIAL SQ ONE (17:15)
--- NOTE | 2019-02-06 17:18 | PN ---
PROGRESS NOTE DATE OF SERVICE: 02/06/2019 This 58-year-old woman was admitted with acute urinary tract infection with sepsis and E coli grown from the culture. No chest pain. No palpitations. No fever. Patient on broad IV antibiotics. EXAM: Alert and oriented times three. Pulse is 60. Blood pressure 116/72, respiration 18, temperature 97 degrees, pulse ox 98% on room air. HEENT: Conjunctivae normal. NECK: No jugular venous distention. CARDIOVASCULAR: S1, S2 muffled. RESPIRATIONS: Breath sounds diminished in the bases. No rhonchi. No crackles. ABDOMEN is soft, nontender. No mass palpable. LEGS are no edema. No swelling. LABS: WBC 12.1. Glucose noted. ASSESSMENT: 1. Acute urinary tract infection with sepsis present on admission with E coli improving. 2. Left kidney complex cyst in the CT scan. 3. Diabetes mellitus type 2. 4. Hypothyroidism. 5. Hyperlipidemia. 6. Hypotension, secondary to sepsis. 7. History of deep vein thrombosis prophylaxis. 8. Gastrointestinal prophylaxis. RECOMMENDATIONS AND DISCUSSION: Recommend to continue current medication, continue symptomatic treatment. Otherwise, at this time, I recommend to continue the antibiotics. Otherwise, the prognosis is guarded. Further recommendations to follow. MMODL / IJN: [id number] /
[2019-02-06 20:59] LABS: Glucose,Whole Blood 230 mg/dL (75-99)
[2019-02-06] MEDS ORDERED: POLYETHYLENE GLYCOL 3350 17 GM POWD.PACK PO SCH (21:00)
[2019-02-06] MEDS: MELATONIN 5 MG TABLET PO SCH (21:13)
[2019-02-06] MEDS: METOPROLOL SUCCINATE (ER) 25 MG TAB.ER.24H PO SCH (21:13)
[2019-02-06] MEDS: ATORVASTATIN 20 MG TAB PO SCH (21:14)
--- NOTE | 2019-02-07 02:03 | PN ---
PROGRESS NOTE DATE OF SERVICE: February 06, 2019. REASON FOR FOLLOWUP: E coli UTI and bacteremia. INTERVAL HISTORY: The patient is currently afebrile. The patient has been breathing comfortably. The patient denies having any chest pain. No shortness of breath. No cough. No abdominal pain. No diarrhea. PHYSICAL EXAMINATION: Blood pressure 116/62 with a pulse of 60, temperature 97. She is 98% on room air. General description is middle-aged female up in the room in no distress. Respiratory system: Unlabored breathing. Clear to auscultation anteriorly. Heart S1, S2. Regular rate and rhythm. Abdomen soft. No tenderness. LABS: No new labs have been obtained today. Blood culture repeat has been negative. DIAGNOSTIC IMPRESSION AND PLAN: Patient with an E coli bacteremia secondary to urinary source which is sensitive pathogen. The patient is currently covered with Rocephin. Plan will be to finish therapy with oral Cipro for another 10 days. The patient to have urologist down at [place] where she will follow up for her complicated cyst. Continue supportive care. MMODL / IJN: [id number] /
[2019-02-07] MEDS: ACETAMINOPHEN TAB 325 MG TAB PO PRN (03:50)
[2019-02-07] MEDS: LEVOTHYROXINE 125 MCG TAB PO SCH (05:04)
[2019-02-07] MEDS: SODIUM CHLORIDE 0.9% 1,000 ML IV SCH (06:14)
[2019-02-07 07:15] LABS: Glucose,Whole Blood 126 mg/dL (75-99)
[2019-02-07] MEDS: DOCUSATE 100 MG CAP PO SCH (07:38)
[2019-02-07] MEDS: PANTOPRAZOLE 40 MG TABLET PO SCH (07:38)
[2019-02-07] MEDS: ASPIRIN 81 MG PO SCH (07:38)
[2019-02-07] MEDS: NON-FORMULARY DRUG (Canagliflozin [Invokana] 300 MG) PO SCH (07:39)
[2019-02-07] MEDS: INSULIN DETEMIR (LEVEMIR) 100 UNIT/ML SYR SQ SCH (07:39)
[2019-02-07] MEDS: INSULIN ASPART (NovoLOG) 100 UNIT/ML VIAL SQ SCH ×2 (07:39→12:24)
[2019-02-07 08:58] LABS: Basophils # (A) 0.1 k/uL (0-0.2); Basophils % (A) 1 %; Eosinophils # (A) 0.2 k/uL (0-0.7); Eosinophils % (A) 2 %; HCT 49.9 % (34.0-46.0); HGB 16.3 gm/dL (11.4-16.0); Lymphocytes # (A) 4.5 k/uL (1.0-4.8); Lymphocytes % (A) 32 %; MCH 27.5 pg (25.0-35.0); MCHC 32.6 g/dL (31.0-37.0); MCV 84.5 fL (80.0-100.0); Mean Platelet Volume 6.5; Monocytes # (A) 0.9 k/uL (0-1.0); Monocytes % (A) 7 %; Neutrophils # (A) 7.8 k/uL (1.3-7.7); Neutrophils % (A) 56 %; Platelet Count 230 k/uL (150-450); RDW 14.6 % (11.5-15.5); WBC 13.9 k/uL (3.8-10.6)
[2019-02-07 09:19] LABS: Calcium 9.8 mg/dL (8.4-10.2); Potassium 4.2 mmol/L (3.5-5.1)
[2019-02-07 12:08] LABS: Glucose,Whole Blood 162 mg/dL (75-99)
[2019-02-07 12:57] VITALS: BP 131/82; PULSE 65; TEMP 98
--- NOTE | 2019-02-07 13:31 | PN ---
PROGRESS NOTE DATE OF SERVICE: 02/07/2019. REASON FOR FOLLOWUP: E coli UTI and bacteremia. INTERVAL HISTORY: The patient is currently afebrile. Patient has been breathing comfortably, feeling better. Denies any chest pain, shortness of breath or cough. No nausea, vomiting. No abdominal pain or diarrhea. PHYSICAL EXAMINATION: On examination, blood pressure 131/82 with pulse of 65, temperature 98. She is 98% on room air. General description is a middle-aged female up in the bed in no distress. RESPIRATORY SYSTEM: Unlabored breathing, clear to auscultation anteriorly. HEART: S1, S2. Regular rate and rhythm. ABDOMEN: Soft, no tenderness. LABS: Hemoglobin 16.3, white count 13.9, BUN of 21, creatinine 0.94. DIAGNOSTIC IMPRESSION AND PLAN: Patient with Escherichia coli bacteremia secondary to urinary source. Follow up blood culture has been negative. Ultrasound with complicated cyst for which the patient will need to follow up with her urologist. Continue supportive care. MMODL / IJN: [id number] /
--- NOTE | 2019-02-07 19:42 | P.DS ---
Providers Date of admission: 02/02/19 16:04 Expected date of discharge: 02/07/19 Attending physician: Caden Gil Consults: 02/04/19 10:01 Consult Physician Urgent Consulting Provider: Babar Fletcher Consult Reason/Comments: bacteremia Do you want consulting provider notified?: Yes Primary care physician: Jennifer Veras [facility] Course: Final diagnosis Acute urinary tract infection with sepsis present on admission with E. coli Left kidney complex cyst on the CT scan Diabetes mellitus type 2 Hypothyroidism Hyperlipidemia Hypotension, secondary to sepsis History of deep vein thrombosis prophylaxis GI prophylaxis Discharge disposition This patient is being discharged in a stable condition with guarded prognosis to home and will follow up with her urology from [place] in the office in one week for complex cysts. Patient will complete a short 10 day course of oral antibiotics upon discharge per infectious disease recommendations. History of present illness This is a pleasant 58 year old female who was recently admitted with urinary tract infection and bacteremia and was being followed closely. Infection disease was consulted for antibiotic therapy recommendations. Final cultures of the blood and urine grew Ecoli. Repeat blood cultures have been negative. Patient denies any shortness of breath, chest pain, or palpitations at this time. Patient is having some mild lower back tenderness but believes it is due to lying in bed. Patient denies any CVA tenderness. Patient remains afebrile. Patient has been tolerating diet with no nausea or vomiting. On exam vital signs are stable. Blood pressure is 131/82 , pulse is 65, temp is 98.0 F, resp are 18 , oxygen saturation is 98 % on room air. Cardio S1 and S2 are normal. Respiratory system shows clear to auscultation. Abdomen is obese, soft, and non-tender. Nervous system shows no focal deficits and gait is steady. Please refer to medication reconciliation sheet for a list of medications. Patient Condition at Discharge: Fair Plan - Discharge Summary Discharge Rx Participant: No New Discharge Prescriptions: New Ciprofloxacin HCl [Cipro] 500 mg PO Q12HR #24 tablet Continue Aspirin 81 mg PO DAILY Metoprolol Succinate [Toprol XL] 12.5 mg PO HS Atorvastatin [Lipitor] 20 mg PO HS INSULIN ASPART (NovoLOG) [NovoLOG (formulary)] See Protocol SQ AC-TID INSULIN ASPART (NovoLOG) [NovoLOG (formulary)] 30 unit SQ AC-TID Albuterol Sulfate [Proair Hfa] 2 puff INHALATION RT-Q6H PRN PRN Reason: Shortness Of Breath Albuterol Nebulized [Ventolin Nebulized] 2.5 mg INHALATION RT-Q6H PRN PRN Reason: Shortness Of Breath Omeprazole 40 mg PO QAM Levothyroxine Sodium [Synthroid] 125 mcg PO DAILY Cranberry Fruit Extract [Cranberry] 200 mg PO BID PRN PRN Reason: UTI SYMPTOMS Canagliflozin [Invokana] 300 mg PO BID Insulin Glargine [Lantus] 60 unit SQ DAILY Melatonin 5 mg PO HS Discharge Medication List Albuterol Nebulized [Ventolin Nebulized] 2.5 mg INHALATION RT-Q6H PRN 06/21/15 [History] Albuterol Sulfate [Proair Hfa] 2 puff INHALATION RT-Q6H PRN 06/21/15 [History] Aspirin 81 mg PO DAILY 06/21/15 [History] Atorvastatin [Lipitor] 20 mg PO HS 06/21/15 [History] INSULIN ASPART (NovoLOG) [NovoLOG (formulary)] 30 unit SQ AC-TID 06/21/15 [History] INSULIN ASPART (NovoLOG) [NovoLOG (formulary)] See Protocol SQ AC-TID 06/21/15 [History] Metoprolol Succinate [Toprol XL] 12.5 mg PO HS 06/21/15 [History] Canagliflozin [Invokana] 300 mg PO BID 02/01/19 [History] Cranberry Fruit Extract [Cranberry] 200 mg PO BID PRN 02/01/19 [History] Insulin Glargine [Lantus] 60 unit SQ DAILY 02/01/19 [History] Levothyroxine Sodium [Synthroid] 125 mcg PO DAILY 02/01/19 [History] Melatonin 5 mg PO HS 02/01/19 [History] Omeprazole 40 mg PO QAM 02/01/19 [History] Ciprofloxacin HCl [Cipro] 500 mg PO Q12HR #24 tablet 02/04/19 [Rx] Follow up Appointment(s)/Referral(s): Zane Sheppard MD [STAFF PHYSICIAN] - 1 Week Jennifer Veras MD [Primary Care Provider] - 1-2 days Babar Fletcher MD [STAFF PHYSICIAN] - 1 Week Ambulatory/Diagnostic Orders: Basic Metabolic Panel [LAB.AMB] Time Frame: 3 Days, Location: None Selected Complete Blood Count w/diff [LAB.AMB] Time Frame: 3 Days, Location: None Selected Patient Instructions/Handouts: Urinary Tract Infection in Women (DC) Activity/Diet/Wound Care/Special Instructions: Activity limited until follow-up Continue current diet continue taking all of antibiotic until complete Follow up with your urologist this week Follow up with pcp this week. pt wants to make own follow up appointment Discharge Disposition: HOME SELF-CARE
--- NOTE | 2019-02-07 23:32 | DS ---
DISCHARGE SUMMARY FINAL DIAGNOSES: 1. Acute urinary tract infection with sepsis present on admission with E coli, improving. 2. Left kidney complex cyst in the CT scan. 3. Diabetes type 2. 4. Hypothyroidism. 5. Hyperlipidemia. 6. Hypotension, secondary to sepsis. 7. History of deep vein thrombosis prophylaxis. 8. Gastrointestinal prophylaxis. DISCHARGE DISPOSITION: The patient will be discharged in stable condition with guarded prognosis. HISTORY OF PRESENT ILLNESS: This 58-year-old woman with a past medical history of multiple medical problems was admitted with acute urinary tract infection with sepsis. Patient was treated with IV antibiotics. Patient improved significantly. The patient was closely monitored and Infectious Disease saw the patient. On exam, vitals signs are stable. Cardiovascular: S1, S2. RESPIRATORY: Breath sounds diminished in the bases. Abdomen soft. Nervous system: No focal deficits. DISCHARGE INSTRUCTIONS/MEDICATION: 1. Diet is cardiac diet. 2. Activity limited until followup. 3. Follow up with Dr. Veras to 1-2 days. 4. Follow up with Dr. Fletcher as recommended. 5. Follow up with Urology for further evaluation. DISCHARGE MEDICATIONS: 1. Aspirin 81 mg p.o. daily. 2. Cranberry 200 mg b.i.d. p.r.n. 3. Invokana 300 mg p.o. b.i.d. 4. Lantus 60 units subcu daily. 5. Lipitor 20 mg q.h.s. 6. Melatonin 5 mg q.h.s. 7. NovoLog a.c. t.i.d. 8. NovoLog 30 units a.c. t.i.d. with meals. 9. Omeprazole 40 mg q.a.m. 10.ProAir 2 puffs q.6h p.r.n. 11.Synthroid 125 mcg p.o. daily. 12.Toprol-XL 12.5 mg q.h.s. 13.Ventolin 2.5 q.6h p.r.n. 14.Cipro 500 mg p.o. b.i.d. for 12 days. Once again the patient will be discharged in stable condition with guarded prognosis. MMODL / IJN: [id number] /
== END 2019-02-07 13:05 | disposition home or self-care (01) | DRG 872 ==
LOC: EC 21:59 → 4MS4W 02-02 02:02 → OBSVTOIN 02-02 16:04 → 4MS4W 02-03 23:48
PROVIDERS: ADMIT Hospitalist; ATTEND Hospitalist
DX: A41.51 Sepsis due to Escherichia coli [E. coli] (principal); N12 Tubulo-interstitial nephritis, not specified as acute or chronic; Z68.41 Body mass index [BMI] 40.0-44.9, adult; E66.9 Obesity, unspecified; I11.0 Hypertensive heart disease with heart failure; I50.9 Heart failure, unspecified; N28.1 Cyst of kidney, acquired; E03.9 Hypothyroidism, unspecified; E11.9 Type 2 diabetes mellitus without complications; I25.10 Atherosclerotic heart disease of native coronary artery without angina pectoris; J44.9 Chronic obstructive pulmonary disease, unspecified; K21.9 Gastro-esophageal reflux disease without esophagitis; E78.5 Hyperlipidemia, unspecified; M19.90 Unspecified osteoarthritis, unspecified site; G47.30 Sleep apnea, unspecified; Z79.82 Long term (current) use of aspirin; Z79.4 Long term (current) use of insulin; Z79.890 Hormone replacement therapy; Z79.899 Other long term (current) drug therapy; Z87.891 Personal history of nicotine dependence; Z99.89 Dependence on other enabling machines and devices; Z85.3 Personal history of malignant neoplasm of breast; Z90.710 Acquired absence of both cervix and uterus; Z90.49 Acquired absence of other specified parts of digestive tract; Z90.13 Acquired absence of bilateral breasts and nipples; Z86.69 Personal history of other diseases of the nervous system and sense organs; Z88.8 Allergy status to other drugs, medicaments and biological substances; Z83.2 Family history of diseases of the blood and blood-forming organs and certain disorders involving the immune mechanism; Z80.9 Family history of malignant neoplasm, unspecified
CPT/HCPCS: 36415; 76770; 80048; 80053; 81001; 83605; 85025; 85610; 85730; 87040; 87077; 87086; 87186; 93005; 96361; 96365; 99285

== ENCOUNTER → 2019-03-07 | Outpatient (CLI) | payer MEDICARE ==
[2019-03-07 08:57] LABS: African American GFR (CKD) >90 (>60 ml/min/1.73 sqM); Blood Urea Nitrogen 19 mg/dL (7-17)
--- NOTE | 2019-03-07 15:38 | CT ---
EXAMINATION TYPE: CT abdomen pelvis wo/w con DATE OF EXAM: 03/07/2019 COMPARISON: Ultrasound 02/02/2019 INDICATION: Renal Cysts and UTI, N 30.90 DLP: 3715.9 mGycm, Automated exposure control for dose reduction was used. CONTRAST: 100 mL of Isovue 300. Study performed with Oral Contrast TECHNIQUE: Axial images were obtained from above the diaphragm to the pubic rami in the axial plane a t 5 mm thick sections. Reconstructed images are reviewed on the computer in the coronal plane. FINDINGS: Limited CT sections are obtained the lung bases. The lung bases are clear. CT ABDOMEN: Liver: Normal Spleen: Normal Pancreas: Normal Adrenal glands: The adrenal glands are normal. Gallbladder: Normal Kidneys: There is a 1.5 cm hyperdense mass in the posterior lateral left mid kidney may be an angiomy olipoma. There is a large cyst on the superior anterior left kidney measuring 5.8 cm and 21 Hounsfiel d units.. No hydronephrosis is present. Aorta: Vascular calcification is within the aorta. Inferior vena cava: Inferior vena cava is flattened which can be related to the patient's volume stat us. CT PELVIS: Loops of bowel within the abdomen and pelvis are normal. There are loops of bowel which are incom pletely distended or lack oral contrast limiting their evaluation. Contrast extends to the cecum. Sca ttered diverticuli are within the sigmoid colon. Appendix: Normal as visualized. Urinary bladder: Normal. Genitourinary structures: Uterus and ovaries are not identified. Osseous structures: No suspicious lytic or sclerotic lesions. IMPRESSIONS: 1. Scattered diverticulosis without acute diverticulitis. 2. Large cyst with intermediate Hounsfield units superior pole left kidney. This is compatible with a large complex cyst. 3. 1.5 cm hyperdense mass lateral left mid kidney, although this may have been the suspected complex cyst on the mid left kidney by ultrasound.
== END | disposition home or self-care (01) ==
LOC: RADCTMAIN 07:57
PROVIDERS: ATTEND Urology
DX: K57.90 Diverticulosis of intestine, part unspecified, without perforation or abscess without bleeding (principal); N28.1 Cyst of kidney, acquired; N28.89 Other specified disorders of kidney and ureter; Z88.8 Allergy status to other drugs, medicaments and biological substances
CPT/HCPCS: 82565; 84520; 74178; 36415; Q9967 ×2

== ENCOUNTER → 2020-05-07 | Outpatient (CLI) | payer MEDICARE ==
--- NOTE | 2020-05-07 15:22 | US ---
EXAMINATION TYPE: US transvaginal DATE OF EXAM: 05/07/2020 COMPARISON: NONE CLINICAL HISTORY: R31.9 Hematuria, unspecified, R10.2 Pelvic and. TECHNIQUE: Transvaginal (TV). Date of LMP: hysterectomy 32 years ago with unilateral oopherectomy EXAM MEASUREMENTS: Uterus: Surgically absent Endometrial Stripe: Surgically absent Right Ovary: not visualized Left Ovary: not visualized 1. Uterus: Surgically absent 2. Endometrium: Surgically absent 3. Right Ovary: not visualized 4. Left Ovary: not visualized 5. Bilateral Adnexa: wnl 6. Posterior cul-de-sac: wnl IMPRESSION: 1. Normal post hysterectomy and oophorectomy pelvic ultrasound.
--- NOTE | 2020-05-07 15:25 | US ---
EXAMINATION TYPE: US kidneys/renal and bladder DATE OF EXAM: 05/07/2020 COMPARISON: CT CLINICAL HISTORY: R31.9 Hematuria, unspecified, R10.2 Pelvic and. EXAM MEASUREMENTS: Right Kidney: 11.1 x 5.2 x 5.5cm Left Kidney: 10.3 x 5.1 x 4.6cm Patient suffers from gross morbid obesity. Technically difficult limited study. Right Kidney: anechoic structure with internal echoes. Cyst measuring 2.1 x 1.4 x 1.8cm. Previous me asurement 1.6 x 1.2 x 1.1 cm. Left Kidney: two probable cysts, largest measuring 5.9 x 5.9 x 5.8cm this may has some internal echoe s. Previous measurement 6.0 x 5.0 x 5.0. Bladder: not fully distended IMPRESSION: 1. Mildly complex cysts present bilaterally, the larger than on the left. Continued Monitoring with u ltrasound is recommended.
== END | disposition home or self-care (01) ==
LOC: RADUSWWP 13:56
PROVIDERS: ATTEND Internal Medicine
DX: N28.1 Cyst of kidney, acquired (principal); R31.9 Hematuria, unspecified; R10.2 Pelvic and perineal pain; Z90.721 Acquired absence of ovaries, unilateral; Z90.710 Acquired absence of both cervix and uterus
CPT/HCPCS: 76770; 76830

== ENCOUNTER → 2020-05-16 | Outpatient (CLI) | payer MEDICARE ==
--- NOTE | 2020-05-16 14:13 | CT ---
EXAMINATION TYPE: CT abdomen pelvis w con DATE OF EXAM: 05/16/2020 COMPARISON: 03/07/2019 HISTORY: Renal cyst. CT DLP: 1530 mGycm Automated exposure control for dose reduction was used. CONTRAST: CT scan of the abdomen pelvis is performed with IV Contrast, patient injected with 100 mL of Isovue M 300. FINDINGS- LUNG BASES- No significant abnormality is appreciated. LIVER/GB-post cholecystectomy changes seen in the liver is low in attenuation correlate for hepatic s teatosis. PANCREAS- No gross abnormality is seen. SPLEEN- No gross abnormality is seen. ADRENALS- No gross abnormality is seen. KIDNEYS/BLADDER- Right kidney: No hydronephrosis or nephrolithiasis. There are multiple hypodensities within the kidne y to which are less than 5 mm and too small to characterize. The larger measures approximately 12 mm and measures 50 Hounsfield units and does not meet the criteria of a simple cyst. It is increased in size relative the prior exam where it measured 1 cm. Left kidney:. The left kidney demonstrates multiple hypodensities the largest of which is seen measur ing 6 cm and 15 Hounsfield units suggestive of a simple cyst. There is an exophytic lesion measuring 1.5 cm in her 30 Hounsfield units which does not meet the criteria of a simple cyst but appears stabl e in size relative to the previous exam. A lower pole and additional subcentimeter hypodensities with in the kidney both lung the medial cortex mid pole. Multiple additional hypodensities appear stable i n size. Due to their size are indeterminate. BOWEL-bowel gas pattern is nonspecific with changes of diverticulosis. LYMPH NODES- No greater than 1cm abdominal or pelvic lymph nodes areappreciated. OSSEOUS STRUCTURES-hypertrophic and degenerative changes of the spine.. OTHER- aorta of normal caliber. No free fluid or free air. Post hysterectomy changes are suggested. Correlate within the appendix IMPRESSION- 1. There are multiple bilateral renal lesions. The left kidney demonstrates multiple lesions which do not meet the criteria of a simple cyst but appear to be stable in size. On the right there is a hypo dense lesion measuring 50 Hounsfield units involving the lower pole as discussed above which also upton s not meet the criteria of a simple cyst but retrospectively measured only 1 cm on the prior exam. No w measures 1.5 cm. Although, complicated cyst are the most likely etiology, given the interval increa se in size recommend MRI of the kidneys.
== END | disposition home or self-care (01) ==
LOC: RADCTMAIN 11:13
PROVIDERS: ATTEND Internal Medicine
DX: N28.89 Other specified disorders of kidney and ureter (principal); I10 Essential (primary) hypertension
CPT/HCPCS: 82565; 84520; 74177; 36415; Q9967 ×2

== ENCOUNTER 2021-07-16 09:26 | Emergency (ER) | payer MEDICARE ==
[2021-07-16 09:33] VITALS: RESP 18; TEMP 98
[2021-07-16] MEDS ORDERED: ONDANSETRON 4 MG/2 ML VIAL IVP STA (10:05)
[2021-07-16] MEDS ORDERED: SODIUM CHLORIDE 0.9% 2,000 ML IV ONE (10:05)
[2021-07-16] MEDS ORDERED: KETOROLAC 15 MG/ML 1 ML VIAL IVP STA (10:05)
[2021-07-16 10:55] LABS: Basophils # (A) 0.1 k/uL (0-0.2); Basophils % (A) 0 %; Eosinophils # (A) 0.1 k/uL (0-0.7); Eosinophils % (A) 1 %; HCT 49.6 % (34.0-46.0); HGB 16.8 gm/dL (11.4-16.0); Lymphocytes # (A) 3.6 k/uL (1.0-4.8); Lymphocytes % (A) 29 %; MCH 29.6 pg (25.0-35.0); MCHC 33.9 g/dL (31.0-37.0); MCV 87.2 fL (80.0-100.0); Monocytes # (A) 0.9 k/uL (0-1.0); Monocytes % (A) 7 %; Neutrophils # (A) 7.6 k/uL (1.3-7.7); Neutrophils % (A) 61 %; Platelet Count 211 k/uL (150-450); RBC 5.69 m/uL (3.80-5.40); RDW 13.1 % (11.5-15.5); WBC 12.5 k/uL (3.8-10.6)
[2021-07-16 11:11] LABS: ALT 136 U/L (4-34); AST 164 U/L (14-36); African American GFR (CKD) >90 (>60 ml/min/1.73 sqM); Albumin 4.4 g/dL (3.5-5.0); Alkaline Phosphatase 131 U/L (38-126); Anion Gap 7 mmol/L; Blood Urea Nitrogen 16 mg/dL (7-17); Calcium 10.2 mg/dL (8.4-10.2); Carbon Dioxide 26 mmol/L (22-30); Chloride 102 mmol/L (98-107); Glucose 164 mg/dL (74-99); Non-African American GFR(CKD) 79 (>60 ml/min/1.73 sqM); Sodium 135 mmol/L (137-145); Total Bilirubin 1.9 mg/dL (0.2-1.3); Total Protein 8.2 g/dL (6.3-8.2)
[2021-07-16 11:12] LABS: Potassium 5.8 mmol/L (3.5-5.1)
--- NOTE | 2021-07-16 11:24 | ED ---
General Adult HPI - General Chief complaint: Weakness Stated complaint: Weakness/Recheck Time Seen by Provider: 07/16/21 09:36 Source: patient, family, RN notes reviewed Mode of arrival: wheelchair Limitations: no limitations - History of Present Illness Initial comments: 61-year-old female presents emergency Department with chief complaint of nausea vomiting. Patient states she had a root canal on Thursday states that she went home started getting sick which worsened throughout the weekend. She did have some increased swelling which she gave her pain meds including, codeine and Keflex chest ray she states the pain is getting better but she still been sick. Patient cannot keep it down states meds make it worse. Patient reports some chills and sweats but no chest pain or shortness of breath no abdominal pain states that she just been vomiting and Bending down and feels dehydrated. - Related Data Home Medications Medication Instructions Recorded Confirmed Albuterol Nebulized [Ventolin 2.5 mg INHALATION RT-Q6H PRN 06/21/15 02/01/19 Nebulized] Albuterol Sulfate [Proair Hfa] 2 puff INHALATION RT-Q6H PRN 06/21/15 02/01/19 Aspirin 81 mg PO DAILY 06/21/15 02/01/19 Atorvastatin [Lipitor] 20 mg PO HS 06/21/15 02/01/19 INSULIN ASPART (NovoLOG) [NovoLOG 30 unit SQ AC-TID 06/21/15 02/01/19 (formulary)] INSULIN ASPART (NovoLOG) [NovoLOG See Protocol SQ AC-TID 06/21/15 02/01/19 (formulary)] Metoprolol Succinate [Toprol XL] 12.5 mg PO HS 06/21/15 02/01/19 Canagliflozin [Invokana] 300 mg PO BID 02/01/19 02/01/19 Cranberry Fruit Extract [Cranberry] 200 mg PO BID PRN 02/01/19 02/01/19 Insulin Glargine [Lantus Vial] 60 unit SQ DAILY 02/01/19 02/02/19 Levothyroxine Sodium [Synthroid] 125 mcg PO DAILY 02/01/19 02/01/19 Melatonin 5 mg PO HS 02/01/19 02/01/19 Omeprazole 40 mg PO QAM 02/01/19 02/01/19 Previous Rx's Medication Instructions Recorded Ciprofloxacin HCl [Cipro] 500 mg PO Q12HR #24 tablet 02/04/19 Ondansetron Odt [Zofran Odt] 4 mg PO Q8HR PRN #14 tab 07/16/21 Allergies Allergy/AdvReac Type Severity Reaction Status Date / Time carvedilol [From Coreg] Allergy Rash/Hives Verified 07/16/21 09:33 Review of Systems ROS Statement: Those systems with pertinent positive or pertinent negative responses have been documented in the HPI. ROS Other: All systems not noted in ROS Statement are negative. Past Medical History Past Medical History: Asthma, Cancer, Heart Failure, COPD, Diabetes Mellitus, GERD/Reflux, Hyperlipidemia, Hypertension, Osteoarthritis (OA), Sleep Apnea/CPAP/BIPAP, Thyroid Disorder Additional Past Medical History / Comment(s): HX MIGRAINES. DONALD BREAST CA. 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 USES CPAP. History of Any Multi-Drug Resistant Organisms: None Reported Past Surgical History: Breast Surgery, Cholecystectomy, Hysterectomy, Joint Replacement, Orthopedic Surgery Additional Past Surgical History / Comment(s): D&C'S. DONALD MASTECTOMY. DONALD KNEE ARTHROSCOPIES. EXC 2 BENIGN TUMORS FROM BACK. REPAIR FX JAW CHILD, TOTAL RIGHT KNEE Past Anesthesia/Blood Transfusion Reactions: Previous Problems w/ Anesthesia, Motion Sickness, Postoperative Nausea & Vomiting (PONV) Additional Past Anesthesia/Blood Transfusion Reaction / Comment(s): TAKES LONG TIME TO AWAKEN, OCC NAUSEA. Past Psychological History: No Psychological Hx Reported Smoking Status: Never smoker Past Alcohol Use History: None Reported Past Drug Use History: None Reported - Past Family History Mother Family Medical History: Deep Vein Thrombosis (DVT) Sister(s) Family Medical History: Cancer General Exam Limitations: no limitations General appearance: alert, in no apparent distress Head exam: Present: atraumatic, normocephalic, normal inspection Eye exam: Present: normal appearance, PERRL, EOMI. Absent: scleral icterus, conjunctival injection, periorbital swelling ENT exam: Present: mucous membranes moist. Absent: normal oropharynx (Mild swelling noted on the right) Neck exam: Present: normal inspection, full ROM. Absent: tenderness, meningismus, lymphadenopathy Respiratory exam: Present: normal lung sounds bilaterally. Absent: respiratory distress, wheezes, rales, rhonchi, stridor Cardiovascular Exam: Present: regular rate, normal rhythm, normal heart sounds. Absent: systolic murmur, diastolic murmur, rubs, gallop, clicks Course Vital Signs 07/16/21 09:30 Temperature 98.0 F Pulse Rate 98 Respiratory 18 Rate Blood Pressure 141/84 O2 Sat by Pulse 99 Oximetry Medical Decision Making - Medical Decision Making Patient feels greatly improved. Patient is a mild leukocytosis, mild transaminitis that she's had prior cholecystectomy has no abdominal pain. This may be related to vomiting. Patient will have recheck return parameters discussed. - Lab Data Result diagrams: 07/16/21 10:20 07/16/21 10:20 Lab Results 07/16/21 07/16/21 Range/Units 10:20 10:20 WBC 12.5 H (3.8-10.6) k/uL RBC 5.69 H (3.80-5.40) m/uL Hgb 16.8 H (11.4-16.0) gm/dL Hct 49.6 H (34.0-46.0) % MCV 87.2 (80.0-100.0) fL MCH 29.6 (25.0-35.0) pg MCHC 33.9 (31.0-37.0) g/dL RDW 13.1 (11.5-15.5) % Plt Count 211 (150-450) k/uL MPV 7.0 Neutrophils % 61 % Lymphocytes % 29 % Monocytes % 7 % Eosinophils % 1 % Basophils % 0 % Neutrophils # 7.6 (1.3-7.7) k/uL Lymphocytes # 3.6 (1.0-4.8) k/uL Monocytes # 0.9 (0-1.0) k/uL Eosinophils # 0.1 (0-0.7) k/uL Basophils # 0.1 (0-0.2) k/uL Sodium 135 L (137-145) mmol/L Potassium 5.8 H (3.5-5.1) mmol/L Chloride 102 (98-107) mmol/L Carbon Dioxide 26 (22-30) mmol/L Anion Gap 7 mmol/L BUN 16 (7-17) mg/dL Creatinine 0.80 (0.52-1.04) mg/dL Est GFR (CKD-EPI)AfAm >90 (>60 ml/min/1.73 sqM) Est GFR (CKD-EPI)NonAf 79 (>60 ml/min/1.73 sqM) Glucose 164 H (74-99) mg/dL Calcium 10.2 (8.4-10.2) mg/dL Total Bilirubin 1.9 H (0.2-1.3) mg/dL AST 164 H (14-36) U/L ALT 136 H (4-34) U/L Alkaline Phosphatase 131 H (38-126) U/L Total Protein 8.2 (6.3-8.2) g/dL Albumin 4.4 (3.5-5.0) g/dL Disposition Clinical Impression: Nausea & vomiting, Dehydration Disposition: HOME SELF-CARE Condition: Stable Instructions (If sedation given, give patient instructions): Dehydration (ED) Additional Instructions: Please return to the Emergency Department if symptoms worsen or any other concerns. Prescriptions: Ondansetron Odt [Zofran Odt] 4 mg PO Q8HR PRN #14 tab PRN Reason: Nausea Is patient prescribed a controlled substance at d/c from ED?: No Referrals: Jennifer Veras MD [Primary Care Provider] - 1-2 days Time of Disposition: 11:22
[2021-07-16 11:41] VITALS: BP 132/78; PULSE 80
== END 2021-07-16 11:41 | disposition home or self-care (01) ==
LOC: EC 09:26
DX: R11.2 Nausea with vomiting, unspecified (principal); E86.0 Dehydration; J45.909 Unspecified asthma, uncomplicated; E11.9 Type 2 diabetes mellitus without complications; I10 Essential (primary) hypertension; K21.9 Gastro-esophageal reflux disease without esophagitis; Z79.899 Other long term (current) drug therapy
CPT/HCPCS: 36415; 80053; 85025; 99285; 96374; 96375; J2405; J1885

== ENCOUNTER → 2021-09-25 | Outpatient (CLI) | payer MEDICARE ==
--- NOTE | 2021-09-25 11:29 | XR ---
EXAMINATION TYPE: XR shoulder complete RT DATE OF EXAM: 09/25/2021 COMPARISON: NONE HISTORY: Pain TECHNIQUE: Three views are submitted. FINDINGS: The osseous structures are intact. There is no acute fracture or dislocation. There is narrowing and mild hypertrophic change of the AC joint. Clavicle is slightly elevated which can be associated with an AC joint ligamentous injury. Surgical clips are seen in the axilla. IMPRESSION: 1. AC joint arthropathy. There may be slight elevation of the clavicle which can be associated with a n AC joint ligamentous injury. Recommend follow-up MRI.
--- NOTE | 2021-09-25 11:31 | XR ---
EXAMINATION TYPE: XR hand complete RT DATE OF EXAM: 09/25/2021 COMPARISON: NONE HISTORY: Pain TECHNIQUE: Three views are submitted. FINDINGS: The osseous structures are intact. The joint spaces are preserved and there is no acute fracture or dislocation. IMPRESSION: 1. No definite acute fracture or dislocation if symptoms persist, follow-up study in 7 to 10 days wo uld be suggested
== END | disposition home or self-care (01) ==
LOC: RADXRYALE 10:26
PROVIDERS: ATTEND Internal Medicine
DX: M12.811 Other specific arthropathies, not elsewhere classified, right shoulder (principal); M79.641 Pain in right hand

== ENCOUNTER 2023-04-08 23:56 | Emergency (ER) | payer MEDICARE ==
[2023-04-09] MEDS ORDERED: MUPIROCIN 2% OINT 22 GM TUBE TOPICAL STA (00:31)
[2023-04-09] MEDS ORDERED: CLOTRIMAZOLE 1% CREAM 30 GM TUBE TOPICAL STA (00:31)
--- NOTE | 2023-04-09 00:36 | ED ---
General Adult HPI - General Chief complaint: Recheck/Abnormal Lab/Rx Stated complaint: Bleeding from navel Time Seen by Provider: 04/09/23 00:04 Source: patient Mode of arrival: ambulatory Limitations: no limitations - History of Present Illness Initial comments: Patient is a 62-year-old female who presents to the emergency department for bleeding from the bellybutton. Started on . She denies injury. Patient was placed on Bactrim a few days ago by her primary care provider for possible infection. Patient reports increased bleeding today. She denies abdominal pain, fever, chills, nausea, vomiting. - Related Data Home Medications Medication Instructions Recorded Confirmed Albuterol Nebulized [Ventolin 2.5 mg INHALATION RT-TID PRN 06/21/15 07/16/21 Nebulized] Albuterol Sulfate [Proair Hfa] 2 puff INHALATION RT-TID PRN 06/21/15 07/16/21 Atorvastatin [Lipitor] 20 mg PO DAILY 06/21/15 07/16/21 Metoprolol Succinate [Toprol XL] 12.5 mg PO DAILY 06/21/15 07/16/21 Levothyroxine Sodium [Synthroid] 125 mcg PO DAILY 02/01/19 07/16/21 Acetaminophen-Codeine 300-30mg 1 - 2 tab PO Q8H PRN 07/16/21 07/16/21 [Tylenol w/codeine #3] Aspirin EC [Ecotrin Low Dose] 81 mg PO DAILY 07/16/21 07/16/21 Cephalexin [Keflex] 500 mg PO QID 07/16/21 07/16/21 Cranberry Fruit Extract [Cranberry] 1,000 mg PO DAILY 07/16/21 07/16/21 Insulin Aspart [NovoLOG Flexpen] See Protocol SQ AC-TID 07/16/21 07/16/21 Insulin Glargine,Hum.rec.anlog 10 unit SQ BID 07/16/21 07/16/21 [Lantus Solostar Pen] Semaglutide [Ozempic] 1 mg SQ LANDERS 07/16/21 07/16/21 lisinopriL [Zestril] 2.5 mg PO DAILY 07/16/21 07/16/21 traMADol HCL 50 mg PO BID PRN 07/16/21 07/16/21 Previous Rx's Medication Instructions Recorded Ondansetron Odt [Zofran Odt] 4 mg PO Q8HR PRN #14 tab 07/16/21 Mupirocin 2% Oint [Bactroban 2% 1 applic TOPICAL TID #22 gm 04/09/23 Oint] Allergies Allergy/AdvReac Type Severity Reaction Status Date / Time carvedilol [From Coreg] AdvReac Gets hot Verified 04/09/23 00:01 and body turns red Review of Systems ROS Statement: Those systems with pertinent positive or pertinent negative responses have been documented in the HPI. ROS Other: All systems not noted in ROS Statement are negative. Past Medical History Past Medical History: Asthma, Cancer, Heart Failure, COPD, Diabetes Mellitus, GERD/Reflux, Hyperlipidemia, Hypertension, Osteoarthritis (OA), Sleep Apnea/CPAP/BIPAP, Thyroid Disorder Additional Past Medical History / Comment(s): HX MIGRAINES. DONALD BREAST CA. 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 USES CPAP. History of Any Multi-Drug Resistant Organisms: None Reported Past Surgical History: Breast Surgery, Cholecystectomy, Hysterectomy, Joint Replacement, Orthopedic Surgery Additional Past Surgical History / Comment(s): D&C'S. DONALD MASTECTOMY. DONALD KNEE ARTHROSCOPIES. EXC 2 BENIGN TUMORS FROM BACK. REPAIR FX JAW CHILD, TOTAL RIGHT KNEE Past Anesthesia/Blood Transfusion Reactions: Previous Problems w/ Anesthesia, Motion Sickness, Postoperative Nausea & Vomiting (PONV) Additional Past Anesthesia/Blood Transfusion Reaction / Comment(s): TAKES LONG TIME TO AWAKEN, OCC NAUSEA. Past Psychological History: No Psychological Hx Reported Smoking Status: Never smoker Past Alcohol Use History: None Reported Past Drug Use History: None Reported - Past Family History Mother Family Medical History: Deep Vein Thrombosis (DVT) Sister(s) Family Medical History: Cancer General Exam Limitations: no limitations General appearance: alert Eye exam: Present: normal appearance, PERRL, EOMI. Absent: scleral icterus, conjunctival injection, periorbital swelling Respiratory exam: Present: normal lung sounds bilaterally. Absent: respiratory distress, wheezes, rales, rhonchi, stridor Cardiovascular Exam: Present: regular rate, normal rhythm, normal heart sounds. Absent: systolic murmur, diastolic murmur, rubs, gallop, clicks GI/Abdominal exam: Present: soft, normal bowel sounds, other (erythematous excoriation in the superficial umbilicus with minimal bleeding ). Absent: di stended, tenderness, guarding, rebound, rigid Neurological exam: Present: alert Psychiatric exam: Present: normal affect, normal mood Skin exam: Present: warm, dry, intact, normal color. Absent: rash Course Vital Signs 04/08/23 04/09/23 04/09/23 23:57 00:56 01:06 Temperature 98.6 F 98.6 F 98.6 F Pulse Rate 77 88 68 Respiratory 16 18 18 Rate Blood Pressure 128/80 132/82 122/62 O2 Sat by Pulse 99 98 98 Oximetry Medical Decision Making - Medical Decision Making Was pt. sent in by a medical professional or institution (, DANIELLA, LIBRARY CLERK, urgent care, hospital, or residential...) When possible be specific @ -No Did you speak to anyone other than the patient for history (EMS, parent, family, police, friend...)? What history was obtained from this source @ -No Did you review nursing and triage notes (agree or disagree)? Why? @ -I reviewed and agree with nursing and triage notes Were old charts reviewed (outside hosp., previous admission, EMS record, old EKG, old radiological studies, urgent care reports/EKG's, residential records)? Report findings @ -No old charts were reviewed Differential Diagnosis (chest pain, altered mental status, abdominal pain women, abdominal pain men, vaginal bleeding, weakness, fever, dyspnea, syncope, h eadache, dizziness, GI bleed, back pain, seizure, CVA, palpatations, mental health)? @ -fungal infection, cellulitis, abscess EKG interpreted by me (3pts min.). @ -As above X-rays interpreted by me (1pt min.). @ -None done CT interpreted by me (1pt min.). @ -None done U/S interpreted by me (1pt. min.). @ -None done What testing was considered but not performed or refused? (CT, X-rays, U/S, labs)? Why? @ -None] What meds were considered but not given or refused? Why? @ -[None] Did you discuss the management of the patient with other professionals (professionals i.e. , DANIELLA, LIBRARY CLERK, lab, RT, psych nurse, social work manager, inorganic chemistry teacher, teacher, recruitment officer, case advocate)? Give summary @ -[No] Was smoking cessation discussed for >3mins.? @ -[No] Was critical care preformed (if so, how long)? @ -[No] Were there social determinants of health that impacted care today? How? (Homelessness, low income, unemployed, alcoholism, drug addiction, transportation, low edu. Level, literacy, decrease access to med. care, usp, re hab)? @ -[No] Was there de-escalation of care discussed even if they declined (Discuss DNR or withdrawal of care, Hospice)? DNR status @ -[No] What co-morbidities impacted this encounter? (DM, HTN, Smoking, COPD, CAD, Cancer, CVA, ARF, Chemo, Hep., AIDS, mental health diagnosis, sleep apnea, morbid obesity)? @ -[None] Was patient admitted / discharged? Hospital course, mention meds given and route, prescriptions, significant lab abnormalities, going to OR and other pertinent info. @ -Discharged with clotrimazole cream for suspected fungal infection. Patient to apply for 3 days and keep area dry. If no improvement she will attempt topical antibiotic for possible superimposed infection Undiagnosed new problem with uncertain prognosis? @ -[No] Drug Therapy requiring intensive monitoring for toxicity (Heparin, Nitro, Insulin, Cardizem)? @ -[No] Were any procedures done? @ -[No] Diagnosis/symptom? @ -skin yeast infection Acute, or Chronic, or Acute on Chronic? @ -acute Uncomplicated (without systemic symptoms) or Complicated (systemic symptoms)? @ uncomplicated Side effects of treatment? @ -[No] Exacerbation, Progression, or Severe Exacerbation? @ -[No] Poses a threat to life or bodily function? How? (Chest pain, [place], [place], pneumonia, PE, COPD, DKA, ARF, appy, cholecystitis, CVA, Diverticulitis, Homicidal, Suicidal, threat to staff... and all critical care pts) @ -No Dr. Lu is my attending Disposition Clinical Impression: Skin yeast infection Disposition: HOME SELF-CARE Condition: Good Instructions (If sedation given, give patient instructions): Skin Yeast Infec tion (ED) Additional Instructions: Apply clotrimazole twice daily. Keep region very dry. If symptoms do not improve in 3 days, apply mupirocin cream three times daily. Follow-up with primary care provider in one to 2 days. Return to the emergency department if you experience new, concerning, or worsening symptoms Prescriptions: Mupirocin 2% Oint [Bactroban 2% Oint] 1 applic TOPICAL TID #22 gm Is patient prescribed a controlled substance at d/c from ED?: No Referrals: Jennifer Veras MD [Primary Care Provider] - 1-2 days
[2023-04-09 00:51] VITALS: TEMP 98.6
[2023-04-09 01:15] VITALS: BP 122/62; PULSE 68; RESP 18
== END 2023-04-09 01:08 | disposition home or self-care (01) ==
LOC: EC 23:56
DX: B37.2 Candidiasis of skin and nail (principal); E11.9 Type 2 diabetes mellitus without complications; I11.0 Hypertensive heart disease with heart failure; I50.9 Heart failure, unspecified; J44.9 Chronic obstructive pulmonary disease, unspecified; E07.9 Disorder of thyroid, unspecified; K21.9 Gastro-esophageal reflux disease without esophagitis; G47.30 Sleep apnea, unspecified; Z79.890 Hormone replacement therapy; Z79.4 Long term (current) use of insulin; Z79.899 Other long term (current) drug therapy; Z88.8 Allergy status to other drugs, medicaments and biological substances
CPT/HCPCS: 99283

== ENCOUNTER 2023-12-22 23:00 | Inpatient (IN) | payer MEDICARE ==
[2023-12-22 23:08] LABS: Glucose,Whole Blood 214 mg/dL (70-110)
--- NOTE | 2023-12-22 23:48 | ED ---
General Adult HPI - General Source: patient, RN notes reviewed Mode of arrival: wheelchair Limitations: no limitations <Lindsey Betancur - Last Filed: 12/22/23 23:42> <Mark Anthony Ha - Last Filed: 12/23/23 03:52> - General Chief complaint: Nausea/Vomiting/Diarrhea Stated complaint: NVD, shivering, light headed Time Seen by Provider: 12/22/23 23:27 - History of Present Illness Initial comments: 63-year-old female presents to the emergency department for evaluation of nausea, vomiting, diarrhea. Patient states that the symptoms started about 12 hours ago today. She notes that she has had significant chills. She did not take her temperature at home. She does admit to some suprapubic discomfort. Denies dysuria, hematuria. She is concerned because she is had a UTI in the past and became septic with that. She states that she did not have symptoms of UTI at that time. Prior abdominal surgeries include cholecystectomy, hysterectomy. Past medical history includes CHF, COPD, diabetes. (Lindsey Betancur) - Related Data Home Medications Medication Instructions Recorded Confirmed Albuterol Nebulized [Ventolin 2.5 mg INHALATION RT-TID PRN 06/21/15 07/16/21 Nebulized] Albuterol Sulfate [Proair Hfa] 2 puff INHALATION RT-TID PRN 06/21/15 07/16/21 Atorvastatin [Lipitor] 20 mg PO DAILY 06/21/15 07/16/21 Metoprolol Succinate [Toprol XL] 12.5 mg PO DAILY 06/21/15 07/16/21 Levothyroxine Sodium [Synthroid] 125 mcg PO DAILY 02/01/19 07/16/21 Acetaminophen-Codeine 300-30mg 1 - 2 tab PO Q8H PRN 07/16/21 07/16/21 [Tylenol w/codeine #3] Aspirin EC [Ecotrin Low Dose] 81 mg PO DAILY 07/16/21 07/16/21 Cephalexin [Keflex] 500 mg PO QID 07/16/21 07/16/21 Cranberry Fruit Extract [Cranberry] 1,000 mg PO DAILY 07/16/21 07/16/21 Insulin Aspart [NovoLOG Flexpen] See Protocol SQ AC-TID 07/16/21 07/16/21 Insulin Glargine,Hum.rec.anlog 10 unit SQ BID 07/16/21 07/16/21 [Lantus Solostar Pen] Semaglutide [Ozempic] 1 mg SQ LANDERS 07/16/21 07/16/21 lisinopriL [Zestril] 2.5 mg PO DAILY 07/16/21 07/16/21 traMADol HCL 50 mg PO BID PRN 07/16/21 07/16/21 Previous Rx's Medication Instructions Recorded Ondansetron Odt [Zofran Odt] 4 mg PO Q8HR PRN #14 tab 07/16/21 Mupirocin 2% Oint [Bactroban 2% 1 applic TOPICAL TID #22 gm 04/09/23 Oint] Allergies Allergy/AdvReac Type Severity Reaction Status Date / Time carvedilol [From Coreg] AdvReac Gets hot Verified 12/22/23 23:05 and body turns red Review of Systems ROS Other: All systems not noted in ROS Statement are negative. <Lindsey Betancur - Last Filed: 12/22/23 23:42> ROS Other: All systems not noted in ROS Statement are negative. <Mark Anthony Ha - Last Filed: 12/23/23 03:52> ROS Statement: Those systems with pertinent positive or pertinent negative responses have been documented in the HPI. Past Medical History Past Medical History: Asthma, Cancer, Heart Failure, COPD, Diabetes Mellitus, GERD/Reflux, Hyperlipidemia, Hypertension, Osteoarthritis (OA), Sleep Apnea/CPAP/BIPAP, Thyroid Disorder Additional Past Medical History / Comment(s): HX MIGRAINES. DONALD BREAST CA. 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 USES CPAP. History of Any Multi-Drug Resistant Organisms: None Reported Past Surgical History: Breast Surgery, Cholecystectomy, Hysterectomy, Joint R eplacement, Orthopedic Surgery Additional Past Surgical History / Comment(s): D&C'S. DONALD MASTECTOMY. DONALD KNEE ARTHROSCOPIES. EXC 2 BENIGN TUMORS FROM BACK. REPAIR FX JAW CHILD, TOTAL RIGHT KNEE Past Anesthesia/Blood Transfusion Reactions: Previous Problems w/ Anesthesia, Motion Sickness, Postoperative Nausea & Vomiting (PONV) Additional Past Anesthesia/Blood Transfusion Reaction / Comment(s): TAKES LONG TIME TO AWAKEN, OCC NAUSEA. Past Psychological History: No Psychological Hx Reported Smoking Status: Never smoker Past Alcohol Use History: None Reported Past Drug Use History: None Reported - Past Family History Mother Family Medical History: Deep Vein Thrombosis (DVT) Sister(s) Family Medical History: Cancer <Lindsey Betancur - Last Filed: 12/22/23 23:42> General Exam Limitations: no limitations General appearance: alert, in no apparent distress Head exam: Present: atraumatic, normocephalic, normal inspection Eye exam: Present: normal appearance, PERRL, EOMI. Absent: scleral icterus, conjunctival injection, periorbital swelling ENT exam: Present: normal exam, mucous membranes moist Respiratory exam: Present: normal lung sounds bilaterally. Absent: respiratory distress, wheezes, rales, rhonchi, stridor Cardiovascular Exam: Present: regular rate, normal rhythm, normal heart sounds. Absent: systolic murmur, diastolic murmur, rubs, gallop, clicks GI/Abdominal exam: Present: soft, hyperactive bowel sounds. Absent: distended, tenderness, guarding, rebound, rigid <Lindsey Betancur - Last Filed: 12/22/23 23:42> Course Vital Signs 12/22/23 12/23/23 12/23/23 23:02 00:55 01:52 Temperature 99.2 F 100.2 F H Pulse Rate 102 H 105 H 100 Respiratory 16 17 17 Rate Blood Pressure 119/79 132/69 116/58 O2 Sat by Pulse 97 96 98 Oximetry 12/23/23 12/23/23 02:47 03:42 Temperature 100.6 F H 100.9 F H Pulse Rate Respiratory Rate Blood Pressure O2 Sat by Pulse Oximetry Medical Decision Making <Lindsey Betancur - Last Filed: 12/22/23 23:42> - Lab Data Result diagrams: 12/23/23 00:26 12/23/23 00:26 <Mark Anthony Ha - Last Filed: 12/23/23 03:52> - Medical Decision Making Was pt. sent in by a medical professional or institution (, PA, MANAGER MORTGAGE, urgent care, hospital, or snf...) When possible be specific @ -[No] Did you speak to anyone other than the patient for history (EMS, parent, family, police, friend...)? What history was obtained from this source @ -[No] Did you review nursing and triage notes (agree or disagree)? Why? @ -[I reviewed and agree with nursing and triage notes] Were old charts reviewed (outside hosp., previous admission, EMS record, old EKG, old radiological studies, urgent care reports/EKG's, snf records)? Report findings @ -[No old charts were reviewed] Differential Diagnosis (chest pain, altered mental status, abdominal pain women, abdominal pain men, vaginal bleeding, weakness, fever, dyspnea, syncope, headache, dizziness, GI bleed, back pain, seizure, CVA, palpatations, mental health, musculoskeletal)? @ -[Differential Abdominal Pain Women: Appendicitis, Cholecystitis, diverticulosis, ischemic bowel, pancreatitis, hepatitis, UTI, gastroenteritis, AAA, incarcerated hernia, bowel obstruction, constipation, inflammatory bowel, hepatitis, peptic ulcer disease, splenic infarction, perforated viscus, vulvitis, ovarian torsion, PID, kidney stone, placenta abruption, this is not meant to be an all-inclusive list ] EKG interpreted by me (3pts min.). @ -[None] X-rays interpreted by me (1pt min.). @ -[None done] CT interpreted by me (1pt min.). @ -[None done] U/S interpreted by me (1pt. min.). @ -[None done] What testing was considered but not performed or refused? (CT, X-rays, U/S, labs)? Why? @ -[None] What meds were considered but not given or refused? Why? @ -[None] Did you discuss the management of the patient with other professionals (hardeep crump i.e. , PA, MANAGER MORTGAGE, lab, RT, psych nurse, social professionals, pipe organ builder, teacher, jail officer, case operator)? Give summary @ -[No] Was smoking cessation discussed for >3mins.? @ -[No] Was critical care preformed (if so, how long)? @ -[No] Were there social determinants of health that impacted care today? How? (Homelessness, low income, unemployed, alcoholism, drug addiction, transportation, low edu. Level, literacy, decrease access to med. care, usp, rehab)? @ -[No] Was there de-escalation of care discussed even if they declined (Discuss DNR or withdrawal of care, Hospice)? DNR status @ -[No] What co-morbidities impacted this encounter? (DM, HTN, Smoking, COPD, CAD, Cancer, CVA, ARF, Chemo, Hep., AIDS, mental health diagnosis, sleep apnea, morbid obesity)? @ -[None] Was patient admitted / discharged? Hospital course, mention meds given and route, prescriptions, significant lab abnormalities, going to OR and other pertinent info. @ -[Patient presented to the emergency department for evaluation of nausea, vomiting, diarrhea. Symptoms started today. Patient was provided 1 L normal saline in the emergency department along with Zofran for symptom control. Laboratory studies and UA pending at signout to Frantz Ha PA-C] Undiagnosed new problem with uncertain prognosis? @ -[No] Drug Therapy requiring intensive monitoring for toxicity (Heparin, Nitro, Insulin, Cardizem)? @ -[No] Were any procedures done? @ -[No] Diagnosis/symptom? @ -[default] Acute, or Chronic, or Acute on Chronic? @ -[default] Uncomplicated (without systemic symptoms) or Complicated (systemic symptoms)? @ -[default] Side effects of treatment? @ -[No] Exacerbation, Progression, or Severe Exacerbation? @ -[No] Poses a threat to life or bodily function? How? (Chest pain, USA, [place], pneumonia, PE, COPD, DKA, ARF, appy, cholecystitis, CVA, Diverticulitis, Homicidal, Suicidal, threat to staff... and all critical care pts) @ -[No] (Lindsey Betancur) Admission Patient signed out to me pending laboratory results. Patient presenting to the ED with complaints of nausea, vomiting, suprapubic abdominal pain. Laboratory studies reviewed. CBC does show an elevated white blood cell count of 15.7, chemistry panel largely unremarkable. Urine does show evidence of infection with moderate leukocyte esterase, 10 white blood cells, with few bacteria. At this time, patient also tachycardic and meeting sepsis criteria likely secondary to urinary tract infection. However patient does note complaints of shortness of breath. BNP pending and chest x-ray pending as well. Secondary to history of CHF will not aggressively hydrate patient. Patient started on ceftriaxone. Patient will be admitted for continued IV antibiotics. 35 minutes of critical care performed for sepsis. (Mark Anthony Ha) - Lab Data Lab Results 12/22/23 12/23/23 12/23/23 Range/Units 23:06 00:26 00:26 WBC 15.7 H (3.8-10.6) k/uL RBC 6.05 H (3.80-5.40) m/uL Hgb 17.6 H (11.4-16.0) gm/dL Hct 53.7 H (34.0-46.0) % MCV 88.7 (80.0-100.0) fL MCH 29.0 (25.0-35.0) pg MCHC 32.7 (31.0-37.0) g/dL RDW 13.4 (11.5-15.5) % Plt Count 182 (150-450) k/uL MPV 7.2 Neutrophils % 92 % Lymphocytes % 2 % Monocytes % 4 % Eosinophils % 1 % Basophils % 0 % Neutrophils # 14.3 H (1.3-7.7) k/uL Lymphocytes # 0.4 L (1.0-4.8) k/uL Monocytes # 0.6 (0-1.0) k/uL Eosinophils # 0.2 (0-0.7) k/uL Basophils # 0.1 (0-0.2) k/uL Sodium 136 L (137-145) mmol/L Potassium 4.6 (3.5-5.1) mmol/L Chloride 101 (98-107) mmol/L Carbon Dioxide 25 (22-30) mmol/L Anion Gap 10 mmol/L BUN 22 H (7-17) mg/dL Creatinine 0.94 (0.52-1.04) mg/dL Est GFR (CKD-EPI)AfAm 74 (>60 ml/min/1.73 sqM) Est GFR (CKD-EPI)NonAf 64 (>60 ml/min/1.73 sqM) Glucose 221 H (74-99) mg/dL POC Glucose (mg/dL) 214 H (70-110) mg/dL POC Glu [place] ID Alejandra Edwards Calcium 9.8 (8.4-10.2) mg/dL Total Bilirubin 1.3 (0.2-1.3) mg/dL AST 26 (14-36) U/L ALT 20 (4-34) U/L Alkaline Phosphatase 91 (38-126) U/L NT-Pro-B Natriuret Pep pg/mL Total Protein 7.8 (6.3-8.2) g/dL Albumin 4.5 (3.5-5.0) g/dL Amylase 72 (30-110) U/L Lipase 238 (23-300) U/L Urine Color Urine Appearance (Clear) Urine pH (5.0-8.0) Ur Specific [place] (1.001-1.035) Urine Protein (Negative) Urine Glucose (UA) (Negative) Urine Ketones (Negative) Urine Blood (Negative) Urine Nitrite (Negative) Urine Bilirubin (Negative) Urine Urobilinogen (<2.0) mg/dL Ur Leukocyte Esterase (Negative) Urine RBC (0-5) /hpf Urine WBC (0-5) /hpf Ur Squamous Epith Cells (0-4) /hpf Calcium Oxalate Crystal (None) /hpf Urine Bacteria (None) /hpf Urine Mucus (None) /hpf Influenza Type A (PCR) (Not Detectd) Influenza Type B (PCR) (Not Detectd) RSV (PCR) (Not Detectd) SARS-CoV-2 (PCR) (Not Detectd) 12/23/23 12/23/23 12/23/23 Range/Units 00:26 00:34 01:36 WBC (3.8-10.6) k/uL RBC (3.80-5.40) m/uL Hgb (11.4-16.0) gm/dL Hct (34.0-46.0) % MCV (80.0-100.0) fL MCH (25.0-35.0) pg MCHC (31.0-37.0) g/dL RDW (11.5-15.5) % Plt Count (150-450) k/uL MPV Neutrophils % % Lymphocytes % % Monocytes % % Eosinophils % % Basophils % % Neutrophils # (1.3-7.7) k/uL Lymphocytes # (1.0-4.8) k/uL Monocytes # (0-1.0) k/uL Eosinophils # (0-0.7) k/uL Basophils # (0-0.2) k/uL Sodium (137-145) mmol/L Potassium (3.5-5.1) mmol/L Chloride (98-107) mmol/L Carbon Dioxide (22-30) mmol/L Anion Gap mmol/L BUN (7-17) mg/dL Creatinine (0.52-1.04) mg/dL Est GFR (CKD-EPI)AfAm (>60 ml/min/1.73 sqM) Est GFR (CKD-EPI)NonAf (>60 ml/min/1.73 sqM) Glucose (74-99) mg/dL POC Glucose (mg/dL) (70-110) mg/dL POC Glu [place] ID Calcium (8.4-10.2) mg/dL Total Bilirubin (0.2-1.3) mg/dL AST (14-36) U/L ALT (4-34) U/L Alkaline Phosphatase (38-126) U/L NT-Pro-B Natriuret Pep 607 pg/mL Total Protein (6.3-8.2) g/dL Albumin (3.5-5.0) g/dL Amylase (30-110) U/L Lipase (23-300) U/L Urine Color Yellow Urine Appearance Cloudy H (Clear) Urine pH 5.5 (5.0-8.0) Ur Specific [place] 1.029 (1.001-1.035) Urine Protein Trace H (Negative) Urine Glucose (UA) Negative (Negative) Urine Ketones Negative (Negative) Urine Blood Moderate H (Negative) Urine Nitrite Negative (Negative) Urine Bilirubin Negative (Negative) Urine Urobilinogen <2.0 (<2.0) mg/dL Ur Leukocyte Esterase Moderate H (Negative) Urine RBC 24 H (0-5) /hpf Urine WBC 10 H (0-5) /hpf Ur Squamous Epith Cells 5 H (0-4) /hpf Calcium Oxalate Crystal Occasional H (None) /hpf Urine Bacteria Few H (None) /hpf Urine Mucus Rare H (None) /hpf Influenza Type A (PCR) Not Detected (Not Detectd) Influenza Type B (PCR) Not Detected (Not Detectd) RSV (PCR) Not Detected (Not Detectd) SARS-CoV-2 (PCR) Not Detected (Not Detectd) Disposition <Lindsey Betancur - Last Filed: 12/22/23 23:42> <Mark Anthony Ha - Last Filed: 12/23/23 03:52> Clinical Impression: UTI (urinary tract infection) Disposition: ADMITTED IP TO THIS HOSP Condition: Fair Referrals: Jennifer Veras MD [Primary Care Provider] - 1-2 days
[2023-12-23] MEDS: SODIUM CHLORIDE 0.9% 1,000 ML IV STA (00:27)
[2023-12-23] MEDS: ONDANSETRON 4 MG/2 ML VIAL IVP STA (00:28)
[2023-12-23 00:38] LABS: Basophils # (A) 0.1 k/uL (0-0.2); Basophils % (A) 0 %; Eosinophils # (A) 0.2 k/uL (0-0.7); Eosinophils % (A) 1 %; HCT 53.7 % (34.0-46.0); HGB 17.6 gm/dL (11.4-16.0); Lymphocytes # (A) 0.4 k/uL (1.0-4.8); Lymphocytes % (A) 2 %; MCHC 32.7 g/dL (31.0-37.0); MCV 88.7 fL (80.0-100.0); Mean Platelet Volume 7.2; Monocytes # (A) 0.6 k/uL (0-1.0); Monocytes % (A) 4 %; Neutrophils # (A) 14.3 k/uL (1.3-7.7); Neutrophils % (A) 92 %; Platelet Count 182 k/uL (150-450); RBC 6.05 m/uL (3.80-5.40); RDW 13.4 % (11.5-15.5); WBC 15.7 k/uL (3.8-10.6)
[2023-12-23 00:56] LABS: ALT 20 U/L (4-34); AST 26 U/L (14-36); African American GFR (CKD) 74 (>60 ml/min/1.73 sqM); Albumin 4.5 g/dL (3.5-5.0); Alkaline Phosphatase 91 U/L (38-126); Amylase 72 U/L (30-110); Anion Gap 10 mmol/L; Blood Urea Nitrogen 22 mg/dL (7-17); Calcium 9.8 mg/dL (8.4-10.2); Carbon Dioxide 25 mmol/L (22-30); Chloride 101 mmol/L (98-107); Glucose 221 mg/dL (74-99); Lipase 238 U/L (23-300); Non-African American GFR(CKD) 64 (>60 ml/min/1.73 sqM); Potassium 4.6 mmol/L (3.5-5.1); Sodium 136 mmol/L (137-145); Total Bilirubin 1.3 mg/dL (0.2-1.3); Total Protein 7.8 g/dL (6.3-8.2)
[2023-12-23 01:06] LABS: Appearance,Urine Cloudy (Clear); Bacteria,Urine Few /hpf; Bilirubin,Urine Negative (Negative); Blood,Urine Moderate (Negative); Calcium Oxalate Crystals,Urine Occasional /hpf; Color,Urine Yellow; Glucose,Urine (UA) Negative (Negative); Ketones,Urine Negative (Negative); Leukocyte Esterase,Urine Moderate (Negative); Mucus,Urine Rare /hpf; Nitrite,Urine Negative (Negative); PH, Urine 5.5 (5.0-8.0); Protein,Urine Trace (Negative); RBC,Urine 24 /hpf (0-5); Specific Gravity,Urine 1.029 (1.001-1.035); Squamous Epithelial Cell,Urine 5 /hpf (0-4); Urobilinogen,Urine <2.0 mg/dL (<2.0); WBC,Urine 10 /hpf (0-5)
[2023-12-23] MEDS: KETOROLAC 15 MG/ML 1 ML VIAL IVP STA (01:46)
[2023-12-23] MEDS: ACETAMINOPHEN TAB 500 MG TAB PO STA (01:48)
[2023-12-23] MEDS: cefTRIAXone IN SWFI 1,000 MG/10 ML SYRINGE IVP STA (02:37)
[2023-12-23] MEDS: IBUPROFEN 400 MG TAB PO STA (03:44)
[2023-12-23] MEDS ORDERED: IBUPROFEN 400 MG TAB PO PRN (03:53)
[2023-12-23] MEDS ORDERED: NALOXONE 0.4 MG/ML 1 ML VIAL IV PRN (03:53)
--- NOTE | 2023-12-23 04:51 | XR ---
EXAM: XR Chest, 2 Views CLINICAL HISTORY: ITS.REASON XR Reason: dyspnea TECHNIQUE: Frontal and lateral views of the chest. COMPARISON: XR Chest dated 06/26/2015 FINDINGS: Lungs: Unremarkable. No consolidation. Pleural space: Unremarkable. No pneumothorax. Heart: Heart size upper normal. Mediastinum: Unremarkable. Normal mediastinal contour. Bones/joints: Degenerative changes of the spine. No acute fracture. Other: Clips in the right axillary region. IMPRESSION: No acute findings in the chest.
[2023-12-23] MEDS: SODIUM CHLORIDE 0.9% 1,000 ML BAG IV STA (06:27)
[2023-12-23] MEDS: SODIUM CHLORIDE 0.9% 1,000 ML IV SCH (06:28)
[2023-12-23] MEDS: ONDANSETRON 4 MG/2 ML VIAL IVP PRN (10:31)
[2023-12-23] MEDS ORDERED: IOPAMIDOL CONTRAST (ORAL USE) VIAL PO PRN ×2 (14:38→16:45)
--- NOTE | 2023-12-23 14:46 | P.HPIM ---
History of Present Illness Patient is a 63-year-old female came with complains of nausea vomiting diarrhea has been going on since yesterday patient is having significant diarrhea. Patient also complaining of some mild crampy abdominal pain bilateral lower quad rants patient denies any suprapubic pain patient denies any dysuria patient had fever here along with leukocytosis patient was presumed to have urinary tract infection because of mildly abnormal UTI and was given Rocephin and subsequently admitted. Patient any cough chest x-ray did not show any pneumonia. Patient feels slightly better but still nauseous. REVIEW OF SYSTEMS: All other systems are negative except those mentioned in the HPI PHYSICAL EXAMINATION: GENERAL: The patient is alert and oriented x3, not in any acute distress. Obese HEENT: Pupils are round and equally reacting to light. EOMI. No scleral icterus. No conjunctival pallor. Normocephalic, atraumatic. No pharyngeal erythema. No thyromegaly. CARDIOVASCULAR: S1 and S2 present. No murmurs, rubs, or gallops. PULMONARY: Chest is clear to auscultation, no wheezing or crackles. ABDOMEN: Soft, nontender, nondistended, normoactive bowel sounds. No palpable organomegaly. MUSCULOSKELETAL: No joint swelling or deformity. EXTREMITIES: No cyanosis, clubbing, or pedal edema. NEUROLOGICAL: Gross neurological examination did not reveal any focal deficits. SKIN: Some redness in the center of the skin folds but patient uses nystatin powder. Assessment and plan -Sepsis: Need to rule out intra-abdominal etiology. if CT scan of the abdomen is negative for any intra-abdominal pathology and if C. difficile is negative patient will be treated for urinary tract infection because of abnormal urine. -COPD without any acute exacerbation -Type 2 diabetes mellitus -Congestive heart failure not on any diuretics patient is on low-dose of metoprolol and lisinopril which are being held because of hypotension. Patient is euvolemic at this time unknown whether patient has systolic dysfunction or diastolic function -Type 2 diabetes mellitus -Gastroesophageal flux disease -Peptic ulcer disease with acute gastritis patient was started on Protonix -Hyperlipidemia -Hypertension patient is presently hypotensive -Hypothyroidism For above-mentioned chronic medical problems patient resumed appropriate home medications DVT prophylaxis: Lovenox Past Medical History Past Medical History: Asthma, Cancer, Heart Failure, COPD, Diabetes Mellitus, GERD/Reflux, Hyperlipidemia, Hypertension, Osteoarthritis (OA), Sleep Apnea/CPAP/BIPAP, Thyroid Disorder Additional Past Medical History / Comment(s): HX MIGRAINES. DONALD BREAST CA. 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 USES CPAP. History of Any Multi-Drug Resistant Organisms: None Reported Past Surgical History: Breast Surgery, Cholecystectomy, Hysterectomy, Joint Replacement, Orthopedic Surgery Additional Past Surgical History / Comment(s): D&C'S. DONALD MASTECTOMY. DONALD KNEE ARTHROSCOPIES. EXC 2 BENIGN TUMORS FROM BACK. REPAIR FX JAW CHILD, TOTAL RIGHT KNEE Past Anesthesia/Blood Transfusion Reactions: Previous Problems w/ Anesthesia, Motion Sickness, Postoperative Nausea & Vomiting (PONV) Additional Past Anesthesia/Blood Transfusion Reaction / Comment(s): TAKES LONG TIME TO AWAKEN, OCC NAUSEA. Past Psychological History: No Psychological Hx Reported Smoking Status: Never smoker Past Alcohol Use History: None Reported Past Drug Use History: None Reported - Past Family History Mother Family Medical History: Deep Vein Thrombosis (DVT) Sister(s) Family Medical History: Cancer Medications and Allergies Home Medications Medication Instructions Recorded Confirmed Type Albuterol Nebulized [Ventolin 2.5 mg INHALATION RT-TID PRN 06/21/15 12/23/23 History Nebulized] Albuterol Sulfate [Proair Hfa] 2 puff INHALATION RT-TID PRN 06/21/15 12/23/23 History Atorvastatin [Lipitor] 20 mg PO HS 06/21/15 12/23/23 History Metoprolol Succinate [Toprol XL] 12.5 mg PO HS 06/21/15 12/23/23 History Levothyroxine Sodium [Synthroid] 125 mcg PO DAILY 02/01/19 12/23/23 History Aspirin EC [Ecotrin Low Dose] 81 mg PO DAILY 07/16/21 12/23/23 History lisinopriL [Zestril] 2.5 mg PO HS 07/16/21 12/23/23 History traMADol HCL 50 mg PO BID PRN 07/16/21 12/23/23 History Montelukast [Singulair] 10 mg PO HS 12/23/23 12/23/23 History Tirzepatide [Mounjaro] 5 mg SQ LANDERS 12/23/23 12/23/23 History Allergies Allergy/AdvReac Type Severity Reaction Status Date / Time carvedilol [From Coreg] AdvReac Gets hot Verified 12/23/23 08:01 and body turns red Physical Exam Vitals: Vital Signs Temp Pulse Pulse Resp BP Pulse Ox 12/23/23 12:00 95 16 109/64 94 L 12/23/23 10:00 76 16 97/43 97 12/23/23 08:00 84 84 16 92/62 94 L 12/23/23 06:32 98.7 F 96 16 85/62 94 L 12/23/23 05:15 99.4 F 93 19 90/58 94 L 12/23/23 04:31 100.4 F H 12/23/23 03:42 100.9 F H 12/23/23 02:47 100.6 F H 12/23/23 01:52 100.2 F H 100 17 116/58 98 12/23/23 00:55 105 H 17 132/69 96 12/22/23 23:02 99.2 F 102 H 16 119/79 97 Intake and Output 12/22/23 12/23/23 12/23/23 22:59 06:59 14:59 Other: Voiding Method Toilet Weight 95.708 kg Results CBC & Chem 7: 12/23/23 00:26 12/23/23 00:26 Labs: Abnormal Lab Results - Last 24 Hours (Table) 12/22/23 12/23/23 12/23/23 Range/Units 23:06 00:26 00:26 WBC 15.7 H (3.8-10.6) k/uL RBC 6.05 H (3.80-5.40) m/uL Hgb 17.6 H (11.4-16.0) gm/dL Hct 53.7 H (34.0-46.0) % Neutrophils # 14.3 H (1.3-7.7) k/uL Lymphocytes # 0.4 L (1.0-4.8) k/uL Sodium 136 L (137-145) mmol/L BUN 22 H (7-17) mg/dL Glucose 221 H (74-99) mg/dL POC Glucose (mg/dL) 214 H (70-110) mg/dL Plasma Lactic Acid [place] (0.7-2.0) mmol/L Urine Appearance (Clear) Urine Protein (Negative) Urine Blood (Negative) Ur Leukocyte Esterase (Negative) Urine RBC (0-5) /hpf Urine WBC (0-5) /hpf Ur Squamous Epith Cells (0-4) /hpf Calcium Oxalate Crystal (None) /hpf Urine Bacteria (None) /hpf Urine Mucus (None) /hpf 12/23/23 12/23/23 Range/Units 00:34 03:07 WBC (3.8-10.6) k/uL RBC (3.80-5.40) m/uL Hgb (11.4-16.0) gm/dL Hct (34.0-46.0) % Neutrophils # (1.3-7.7) k/uL Lymphocytes # (1.0-4.8) k/uL Sodium (137-145) mmol/L BUN (7-17) mg/dL Glucose (74-99) mg/dL POC Glucose (mg/dL) (70-110) mg/dL Plasma Lactic Acid [place] 2.2 H* (0.7-2.0) mmol/L Urine Appearance Cloudy H (Clear) Urine Protein Trace H (Negative) Urine Blood Moderate H (Negative) Ur Leukocyte Esterase Moderate H (Negative) Urine RBC 24 H (0-5) /hpf Urine WBC 10 H (0-5) /hpf Ur Squamous Epith Cells 5 H (0-4) /hpf Calcium Oxalate Crystal Occasional H (None) /hpf Urine Bacteria Few H (None) /hpf Urine Mucus Rare H (None) /hpf
[2023-12-23] MEDS: traMADol 50 MG TAB PO PRN (16:50)
[2023-12-23] MEDS: INSULIN ASPART (NovoLOG) 100 UNIT/ML VIAL SQ SCH (17:23)
[2023-12-23 21:07] LABS: Glucose,Whole Blood 134 mg/dL (70-110)
--- NOTE | 2023-12-23 21:58 | CT ---
EXAMINATION TYPE: CT abdomen pelvis w con CT DLP: 1757.5 mGycm, Automated exposure control for dose reduction was used. DATE OF EXAM: 12/23/2023 8:17 PM COMPARISON: 05/16/2020 CT CLINICAL INDICATION:Female, 63 years old with history of abdominal pain and diarrhea; UTI/sepsis. N/V /D x 3 days TECHNIQUE: Axial CT of the abdomen and pelvis. Sagittal and coronal reformats were created on a [employer] workstation. Contrast used:100 mL of Isovue 300 with IV Contrast, (none if empty) Oral contrast used: with Oral Contrast (none if empty) FINDINGS: LOWER CHEST: Mild bibasilar scarring and/or subsegmental atelectasis. Heart is borderline enlarged. ABDOMEN LIVER: Diffusely hypoattenuating parenchyma, suggesting steatosis. No focal mass is suggested. GALLBLADDER AND BILE DUCTS: The gallbladder is surgically absent. Biliary tree does not appear pathol ogically dilated. PANCREAS: Mildly fatty infiltrated without acute finding SPLEEN: Unremarkable. ADRENAL GLANDS: Unremarkable. KIDNEYS AND URETERS: No evidence of renal/ureteral calculus or hydronephrosis. Kidneys enhance symmet rically. There are multiple bilateral rounded hypodense lesions throughout the kidneys, some appear t o be simple cysts while others are of higher attenuation, however none definitely are seen to represe nt a solid tumor. Most of these appear stable from the prior or fractionally larger. The largest lesi on is 6.6 cm, emanating from the upper pole of the left kidney. While this measures larger than befor e (6.1 cm), it retains a stable morphology. No clearly new lesions. PELVIS BLADDER: Unremarkable REPRODUCTIVE: Uterus is not seen, may be atrophic or absent. Small soft tissue densities may represen t normal-sized ovaries in the bilateral pelvis. ABDOMEN & PELVIS STOMACH AND BOWEL: Contrast is seen traversing the stomach and small/large bowel without evidence of obstruction. Normal appendix is seen. There is mild/moderate stool throughout the colon. There are nu merous diverticula in the distal sigmoid colon in particular. There is mild generalized thickening of the sigmoid wall which may reflect changes from the diverticular disease itself, without acute infla mmatory change evident. There is however a focal area of asymmetric wall thickening with surrounding fat stranding in the distal descending colon. PERITONEUM/RETROPERITONEUM: No evidence of pneumoperitoneum or free fluid. VASCULATURE: Moderate atherosclerotic calcifications are present throughout the abdominal aorta and i ts branches. No evidence of aortic aneurysm. Portal veins are enhancing. Splenic vein is patent. SM V is enhancing. LYMPH NODES: No enlarged nodes by CT size criteria. SOFT TISSUE/ABDOMINAL WALL: Unremarkable MUSCULOSKELETAL: No acute osseous abnormalities. Mild/moderate degenerative change of the lumbar spi ne. IMPRESSION: 1. Findings in the distal descending colon raise concern for diverticulitis or focal colitis. Follow -up recommended to exclude underlying neoplasm. 2. No evidence of bowel obstruction, free fluid, or free air. Normal appendix. 3. Multiple bilateral renal lesions redemonstrated, most stable in size and appearance from the prio r study. The largest lesion in the superior pole of the left kidney appears to have enlarged slightly since 2020 but retains a stable morphology. Periodic ultrasound surveillance would likely suffice, h owever if there is strong clinical concern MRI may be obtained.
[2023-12-23] MEDS: PANTOPRAZOLE 40 MG/10 ML VIAL IVP SCH (22:14)
[2023-12-23] MEDS: ATORVASTATIN 20 MG TAB PO SCH (22:15)
[2023-12-23] MEDS: ACETAMINOPHEN TAB 325 MG TAB PO PRN (22:20)
[2023-12-24] MEDS: NYSTATIN 100,000 UNIT/GM POWD 15 GM TOPICAL SCH (02:23)
[2023-12-24 05:54] LABS: Glucose,Whole Blood 117 mg/dL (70-110)
[2023-12-24] MEDS: ENOXAPARIN 40 MG/0.4 ML SYRINGE SQ SCH (10:06)
[2023-12-24] MEDS: ASPIRIN 81 MG PO SCH (10:06)
[2023-12-24] MEDS: LEVOTHYROXINE 125 MCG TAB PO SCH (10:07)
[2023-12-24 10:56] LABS: HCT 43.2 % (37.2-46.3); HGB 13.7 g/dL (12.0-15.0); MCH 28.8 pg (27.0-32.0); MCHC 31.7 g/dL (32.0-37.0); MCV 90.9 FL (80.0-97.0); Mean Platelet Volume 9.7 FL (9.5-12.2); NRBC Per 100 WBC 0 X 10*3/uL (0.00-0.01); Platelet Count 135 X 10*3/uL (140-440); RBC 4.75 X 10*6/uL (4.10-5.20); RDW 13.7 % (11.5-14.5); WBC 10.09 X 10*3/uL (4.50-10.00)
[2023-12-24 10:57] LABS: BUN/Creat Ratio 12.88 Ratio (12.00-20.00); Blood Urea Nitrogen 10.3 mg/dL (9.0-27.0); Calcium 8.4 mg/dL (8.7-10.3); Carbon Dioxide 20.1 mmol/L (21.6-31.8); Chloride 109 mmol/L (96-109); Glucose 124 mg/dL (70-110); Potassium 4.1 mmol/L (3.5-5.5); Sodium 139 mmol/L (135-145)
--- NOTE | 2023-12-24 11:07 | P.CONS ---
History of Present Illness - Reason for Consult Consult date: 12/23/23 Sepsis possible intra-abdominal source Requesting physician: Bean Dean - Chief Complaint Suprapubic pain nausea vomiting x 1 day - History of Present Illness Patient is a 63-year-old female with a past medical history significant for diabetes mellitus hypertension hyperlipidemia osteoarthritis sleep apnea COPD heart failure and breast cancer patient presenting to the hospital concerning for nausea vomiting diarrhea also complaining of suprapubic pain describing the pain to be sharp moderate to severe intensity without any radiation has been nauseated and vomiting P denies having any flank pain has been complaining of urinary symptoms with a pressure and burning but no hematuria with the symptoms the patient has been evaluated on presentation to the hospital patient did have low-grade fever of 100.9 F patient was tachycardic but not hypotensive or hypoxic and no need for supplemental oxygen patient did have white count of 15.7 with a left shift creatinine has been normal electrolytes are normal liver enzymes normal urine has been cloudy with moderate leukocyte esterase and WBC influenza RSV COVID testing negative stool for C. difficile was negative urine culture has been obtained patient has been started on ceftriaxone infectious disease consulted for possible abdominal source for her sepsis patient is scheduled for a CT abdominal pelvis which is currently pending Review of Systems Positive point and negatives has been mentioned in the HPI, complete review of systems was performed and all other systems are negative Past Medical History Past Medical History: Asthma, Cancer, Heart Failure, COPD, Diabetes Mellitus, GERD/Reflux, Hyperlipidemia, Hypertension, Osteoarthritis (OA), Sleep Apnea/CPAP/BIPAP, Thyroid Disorder Additional Past Medical History / Comment(s): HX MIGRAINES. DONALD BREAST CA. 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 USES CPAP. History of Any Multi-Drug Resistant Organisms: None Reported Past Surgical History: Breast Surgery, Cholecystectomy, Hysterectomy, Joint Replacement, Orthopedic Surgery Additional Past Surgical History / Comment(s): D&C'S. DONALD MASTECTOMY. DONALD KNEE ARTHROSCOPIES. EXC 2 BENIGN TUMORS FROM BACK. REPAIR FX JAW CHILD, TOTAL RIGHT KNEE Past Anesthesia/Blood Transfusion Reactions: Previous Problems w/ Anesthesia, Motion Sickness, Postoperative Nausea & Vomiting (PONV) Additional Past Anesthesia/Blood Transfusion Reaction / Comm: TAKES LONG TIME TO AWAKEN, OCC NAUSEA. Past Psychological History: No Psychological Hx Reported Smoking Status: Never smoker Past Alcohol Use History: None Reported Past Drug Use History: None Reported - Past Family History Mother Family Medical History: Deep Vein Thrombosis (DVT) Sister(s) Family Medical History: Cancer Medications and Allergies Home Medications Medication Instructions Recorded Confirmed Type Albuterol Nebulized [Ventolin 2.5 mg INHALATION RT-TID PRN 06/21/15 12/23/23 His tory Nebulized] Albuterol Sulfate [Proair Hfa] 2 puff INHALATION RT-TID PRN 06/21/15 12/23/23 History Atorvastatin [Lipitor] 20 mg PO HS 06/21/15 12/23/23 History Metoprolol Succinate [Toprol XL] 12.5 mg PO HS 06/21/15 12/23/23 History Levothyroxine Sodium [Synthroid] 125 mcg PO DAILY 02/01/19 12/23/23 History Aspirin EC [Ecotrin Low Dose] 81 mg PO DAILY 07/16/21 12/23/23 History lisinopriL [Zestril] 2.5 mg PO HS 07/16/21 12/23/23 History traMADol HCL 50 mg PO BID PRN 07/16/21 12/23/23 History Montelukast [Singulair] 10 mg PO HS 12/23/23 12/23/23 History Tirzepatide [Mounjaro] 5 mg SQ LANDERS 12/23/23 12/23/23 History Allergies Allergy/AdvReac Type Severity Reaction Status Date / Time carvedilol [From Coreg] AdvReac Gets hot Verified 12/23/23 08:01 and body turns red Physical Exam Vitals: Vital Signs Temp Pulse Pulse Resp BP Pulse Ox 12/23/23 16:54 85 16 126/77 95 12/23/23 12:00 95 16 109/64 94 L 12/23/23 10:00 76 16 97/43 97 12/23/23 08:00 84 84 16 92/62 94 L 12/23/23 06:32 98.7 F 96 16 85/62 94 L 12/23/23 05:15 99.4 F 93 19 90/58 94 L 12/23/23 04:31 100.4 F H 12/23/23 03:42 100.9 F H 12/23/23 02:47 100.6 F H 12/23/23 01:52 100.2 F H 100 17 116/58 98 12/23/23 00:55 105 H 17 132/69 96 12/22/23 23:02 99.2 F 102 H 16 119/79 97 Intake and Output 12/23/23 12/23/23 12/23/23 06:59 14:59 22:59 Other: Voiding Method Toilet Weight 95.708 kg GENERAL DESCRIPTION: Elderly female lying in bed, no distress. No tachypnea or accessory muscle of respiration use. HEENT: Shows Pallor , no scleral icterus. Oral mucous membrane is dry. No pharyngeal erythema or thrush NECK: Trachea central, no thyromegaly. LUNGS: Unlabored breathing. Clear to auscultation anteriorly. No wheeze or crackle. HEART: S1, S2, regular rate and rhythm. No loud murmur ABDOMEN: Soft, mild distention and tenderness to the suprapubic area EXTREMITIES: No edema of feet. SKIN: No rash, no masses palpable. NEUROLOGICAL: The patient is awake, alert, oriented x3, mood and affect normal. Results CBC & Chem 7: 12/24/23 06:33 12/24/23 06:33 Labs: Abnormal Lab Results - Last 24 Hours (Table) 12/22/23 12/23/23 12/23/23 Range/Units 23:06 00:26 00:26 WBC 15.7 H (3.8-10.6) k/uL RBC 6.05 H (3.80-5.40) m/uL Hgb 17.6 H (11.4-16.0) gm/dL Hct 53.7 H (34.0-46.0) % Neutrophils # 14.3 H (1.3-7.7) k/uL Lymphocytes # 0.4 L (1.0-4.8) k/uL Sodium 136 L (137-145) mmol/L BUN 22 H (7-17) mg/dL Glucose 221 H (74-99) mg/dL POC Glucose (mg/dL) 214 H (70-110) mg/dL Plasma Lactic Acid Dixon (0.7-2.0) mmol/L Urine Appearance (Clear) Urine Protein (Negative) Urine Blood (Negative) Ur Leukocyte Esterase (Negative) Urine RBC (0-5) /hpf Urine WBC (0-5) /hpf Ur Squamous Epith Cells (0-4) /hpf Calcium Oxalate Crystal (None) /hpf Urine Bacteria (None) /hpf Urine Mucus (None) /hpf 12/23/23 12/23/23 Range/Units 00:34 03:07 WBC (3.8-10.6) k/uL RBC (3.80-5.40) m/uL Hgb (11.4-16.0) gm/dL Hct (34.0-46.0) % Neutrophils # (1.3-7.7) k/uL Lymphocytes # (1.0-4.8) k/uL Sodium (137-145) mmol/L BUN (7-17) mg/dL Glucose (74-99) mg/dL POC Glucose (mg/dL) (70-110) mg/dL Plasma Lactic Acid Dixon 2.2 H* (0.7-2.0) mmol/L Urine Appearance Cloudy H (Clear) Urine Protein Trace H (Negative) Urine Blood Moderate H (Negative) Ur Leukocyte Esterase Moderate H (Negative) Urine RBC 24 H (0-5) /hpf Urine WBC 10 H (0-5) /hpf Ur Squamous Epith Cells 5 H (0-4) /hpf Calcium Oxalate Crystal Occasional H (None) /hpf Urine Bacteria Few H (None) /hpf Urine Mucus Rare H (None) /hpf Assessment and Plan (1) Urinary tract infection Current Visit: Yes Status: Acute Code(s): N39.0 - URINARY TRACT INFECTION, SITE NOT SPECIFIED SNOMED Code(s): 35676543 (2) Sepsis Current Visit: No Status: Acute Code(s): A41.9 - SEPSIS, UNSPECIFIED ORGANISM SNOMED Code(s): 35315520 Plan: 1patient with sepsis in this patient with fever tachycardia elevated white count meeting criteria for SIRS/sepsis source likely UTI underlying GI source such as diverticulitis/colitis not entirely excluded 2-we will wait for the CT abdominal pelvis to complete and wait for the culture to finalize 3-continue with the Rocephin will add Flagyl if any involvement of the bowel We will follow on clinical condition and cultures to further adjust medication if needed Thank you for this consultation we will follow the patient along with you Dictation was produced using [employer] dictation software. please excuse any grammatical, word or spelling errors. Time with Patient: Greater than 30
[2023-12-24 11:41] LABS: Glucose,Whole Blood 156 mg/dL (70-110)
[2023-12-24] MEDS: metroNIDAZOLE 500 MG TAB PO SCH (12:13)
--- NOTE | 2023-12-24 14:57 | P.PN ---
Subjective Progress Note Date: 12/24/23 Principal diagnosis: Reason for follow-up is UTI/diverticulitis Patient is a 63-year-old female with a past medical history significant for diabetes mellitus hypertension hyperlipidemia osteoarthritis sleep apnea COPD heart failure and breast cancer patient presenting to the hospital concerning for nausea vomiting diarrhea also complaining of suprapubic pain, patient be diagnosed with a urinary tract infection and concern for possible intra-abdominal source with the CT suspicious for diverticulitis. On today's evaluation that is 12/24/2023, the patient continues to be afebrile, the patient is on room air and breathing comfortably, the Pt denies having any chest pain or cough, the patient mention feeling better as far as abdominal pain is concerned and no nausea vomiting and did have resolution of her diarrhea. Patient white count is down to 10.09 creatinine is 0.8 urine is showing gram- negative blood cultures are pending abdominal pelvis CT findings suspicious for distal/descending colonic diverticulitis or focal colitis Objective - Vital Signs Vital signs: Vital Signs Temp 98.2 F 12/24/23 07:05 Pulse 83 12/24/23 07:05 Resp 16 12/24/23 08:00 BP 122/79 12/24/23 07:05 Pulse Ox 93 L 12/24/23 07:05 FiO2 Intake & Output 12/23/23 12/24/23 12/24/23 18:59 06:59 18:59 Weight 95.708 kg Other: Voiding Method Toilet Toilet Toilet # Voids 2 # Bowel Movements 1 - Exam GENERAL DESCRIPTION: An elderly female up in the chair in no distress RESPIRATORY SYSTEM: Unlabored breathing , decreased breath sounds at bases HEART: S1 S2 regular rate and rhythm , ABDOMEN: Soft , no tenderness EXTREMITIES: No edema feet - Labs CBC & Chem 7: 12/24/23 06:33 12/24/23 06:33 Labs: Abnormal Lab Results - Last 24 Hours (Table) 12/23/23 12/24/23 12/24/23 Range/Units 21:04 05:52 06:33 WBC 10.09 H (4.50-10.00) X 10*3/uL MCHC 31.7 L (32.0-37.0) g/dL Plt Count 135 L (140-440) X 10*3/uL Carbon Dioxide (21.6-31.8) mmol/L Glucose (70-110) mg/dL POC Glucose (mg/dL) 134 H 117 H (70-110) mg/dL Calcium (8.7-10.3) mg/dL 12/24/23 12/24/23 Range/Units 06:33 11:39 WBC (4.50-10.00) X 10*3/uL MCHC (32.0-37.0) g/dL Plt Count (140-440) X 10*3/uL Carbon Dioxide 20.1 L (21.6-31.8) mmol/L Glucose 124 H (70-110) mg/dL POC Glucose (mg/dL) 156 H (70-110) mg/dL Calcium 8.4 L (8.7-10.3) mg/dL Microbiology - Last 24 Hours (Table) 12/23/23 03:07 Blood Culture - Preliminary Blood 12/23/23 03:07 Blood Culture - Preliminary Blood 12/23/23 00:34 Urine Culture - Preliminary Urine,Clean Catch Gram Neg Bacilli Assessment and Plan (1) Urinary tract infection Current Visit: Yes Status: Acute Code(s): N39.0 - URINARY TRACT INFECTION, SITE NOT SPECIFIED SNOMED Code(s): 28661703 (2) Sepsis Current Visit: No Status: Acute Code(s): A41.9 - SEPSIS, UNSPECIFIED ORGANIS M SNOMED Code(s): 74120201 Plan: 1patient with sepsis in this patient with fever tachycardia elevated white count meeting criteria for SIRS/sepsis source likely UTI underlying GI source such as diverticulitis/colitis not entirely excluded 2-CT abdominal pelvis is suspicious for focal diverticulitis/colitis stool for C. difficile negative urine is growing gram-negative 3-patient to continue with the Rocephin Flagyl has been added keeping in mind CT findings and will monitor clinical course closely Dictation was produced using [employer] dictation software. please excuse any grammatical, word or spelling errors. Time with Patient: Less than 30
[2023-12-24 16:39] LABS: Glucose,Whole Blood 124 mg/dL (70-110)
--- NOTE | 2023-12-24 19:34 | P.PN ---
Subjective Progress Note Date: 12/24/23 Patient is a 63-year-old female came with complains of nausea vomiting diarrhea has been going on since yesterday patient is having significant diarrhea. Patient also complaining of some mild crampy abdominal pain bilateral lower quadrants patient denies any suprapubic pain patient denies any dysuria patient had fever here along with leukocytosis patient was presumed to have urinary tract infection because of mildly abnormal UTI and was given Rocephin and subsequently admitted. Patient any cough chest x-ray did not show any pneumonia. Patient feels slightly better but still nauseous. 12/24/2023 Patient is evaluated today on the medical floor, patient continues to report loose stools although does report improvement in abdominal pain. Patient had abdominal pelvis CT done which reveals concern for diverticulitis or focal colitis in the distal descending colon. There are multiple bilateral renal lesions most are stable in size and appearance from prior imaging these are noted since back in 2019. Patient is on IV ceftriaxone and oral flagyl. Urine culture does show gram negative bacilli however patient denies any urinary symptoms/dysuria. Review of Systems Constitutional: Denied any fatigue denied any fever. Cardio vascular: denied any chest pain, palpitations Gastrointestinal: denied any nausea, vomiting, diarrhea Pulmonary: Denied any shortness of breath cough Neurologic denied any new focal deficits All inpatient medications were reviewed and appropriate changes in these medications as dictated in the interval history and assessment and plan. PHYSICAL EXAMINATION: GENERAL: The patient is alert and oriented x3, not in any acute distress. Obese HEENT: Pupils are round and equally reacting to light. EOMI. No scleral icterus. No conjunctival pallor. Normocephalic, atraumatic. No pharyngeal erythema. No thyromegaly. CARDIOVASCULAR: S1 and S2 present. No murmurs, rubs, or gallops. PULMONARY: Chest is clear to auscultation, no wheezing or crackles. ABDOMEN: Soft, nontender, nondistended, normoactive bowel sounds. No palpable organomegaly. MUSCULOSKELETAL: No joint swelling or deformity. EXTREMITIES: No cyanosis, clubbing, or pedal edema. NEUROLOGICAL: Gross neurological examination did not reveal any focal deficits. SKIN: Some redness in the center of the skin folds but patient uses nystatin powder. Assessment and plan -Sepsis: due to diverticulitis/colitis patient is on IV ceftriaxone and oral flagyl and ID following. Symptoms improving. UTI less likely as cause for symptoms. -COPD without any acute exacerbation -Type 2 diabetes mellitus -Congestive heart failure not on any diuretics patient is on low-dose of metoprolol and lisinopril which are being held because of hypotension. Patient is euvolemic at this time unknown whether patient has systolic dysfunction or diastolic function -Bilate -Type 2 diabetes mellitus -Gastroesophageal flux disease -Peptic ulcer disease with acute gastritis patient was started on Protonix -Hyperlipidemia -Hypertension patient is presently hypotensive -Hypothyroidism For above-mentioned chronic medical problems patient resumed appropriate home medications DVT prophylaxis: Lovenox The impression and plan of care has been dictated by Jovita Davis Nurse Practitioner as directed. Dr. Jermaine MD I have performed a history and physical examination and medical decision making of this patient, discussed the same with the dictator, and agree with the dictators assessment and plan as written, documented as a scribe. Based on total visit time, I have performed more than 50% of this visit. Objective - Vital Signs Vital signs: Vital Signs Temp 98.2 F 12/24/23 07:05 Pulse 83 12/24/23 07:05 Resp 16 12/24/23 08:00 BP 122/79 12/24/23 07:05 Pulse Ox 93 L 12/24/23 07:05 FiO2 Intake & Output 12/23/23 12/24/23 12/24/23 18:59 06:59 18:59 Weight 95.708 kg Other: Voiding Method Toilet Toilet Toilet # Voids 2 # Bowel Movements 1 - Labs CBC & Chem 7: 12/24/23 06:33 12/24/23 06:33 Labs: Abnormal Lab Results - Last 24 Hours (Table) 12/23/23 12/24/23 12/24/23 Range/Units 21:04 05:52 06:33 WBC 10.09 H (4.50-10.00) X 10*3/uL MCHC 31.7 L (32.0-37.0) g/dL Plt Count 135 L (140-440) X 10*3/uL Carbon Dioxide (21.6-31.8) mmol/L Glucose (70-110) mg/dL POC Glucose (mg/dL) 134 H 117 H (70-110) mg/dL Calcium (8.7-10.3) mg/dL 12/24/23 12/24/23 Range/Units 06:33 11:39 WBC (4.50-10.00) X 10*3/uL MCHC (32.0-37.0) g/dL Plt Count (140-440) X 10*3/uL Carbon Dioxide 20.1 L (21.6-31.8) mmol/L Glucose 124 H (70-110) mg/dL POC Glucose (mg/dL) 156 H (70-110) mg/dL Calcium 8.4 L (8.7-10.3) mg/dL Microbiology - Last 24 Hours (Table) 12/23/23 03:07 Blood Culture - Preliminary Blood 12/23/23 03:07 Blood Culture - Preliminary Blood 12/23/23 00:34 Urine Culture - Preliminary Urine,Clean Catch Gram Neg Bacilli Assessment and Plan Time with Patient: Less than 30
[2023-12-24 20:37] LABS: Glucose,Whole Blood 135 mg/dL (70-110)
[2023-12-24] MEDS: ALBUTEROL NEBULIZED 2.5 MG/3 ML INHALATION PRN (23:10)
[2023-12-25] MEDS: METOPROLOL SUCCINATE (ER) 25 MG TAB.ER.24H PO SCH (01:47)
[2023-12-25 05:46] LABS: Glucose,Whole Blood 141 mg/dL (70-110)
[2023-12-25 11:37] LABS: Glucose,Whole Blood 118 mg/dL (70-110)
--- NOTE | 2023-12-25 14:54 | P.PN ---
Subjective Progress Note Date: 12/25/23 Principal diagnosis: Reason for follow-up is UTI/diverticulitis Patient is a 63-year-old female with a past medical history significant for diabetes mellitus hypertension hyperlipidemia osteoarthritis sleep apnea COPD heart failure and breast cancer patient presenting to the hospital concerning for nausea vomiting diarrhea also complaining of suprapubic pain, patient be diagnosed with a urinary tract infection and concern for possible intra-abdominal source with the CT suspicious for diverticulitis. On today's evaluation that is 12/25/2023, Patient did have low-grade fever of 100 F at 2 AM patient is afebrile since then, the patient is on room air has been complaining of pain mostly epigastric area did have some nausea but no vomiting still having some loose stool but no worsening, no chest pain shortness of breath or cough. No new lab has been repeated today blood culture pending urine is growing E. coli Objective - Vital Signs Vital signs: Vital Signs Temp 99.0 F 12/25/23 06:50 Pulse 85 12/25/23 06:50 Resp 18 12/25/23 06:50 BP 107/62 12/25/23 06:50 Pulse Ox 94 L 12/25/23 06:50 FiO2 Intake & Output 12/24/23 12/25/23 12/25/23 18:59 06:59 18:59 Other: Voiding Method Toilet Toilet # Voids 1 3 # Bowel Movements 1 - Exam GENERAL DESCRIPTION: An elderly female up in the chair in no distress RESPIRATORY SYSTEM: Unlabored breathing , decreased breath sounds at bases HEART: S1 S2 regular rate and rhythm , ABDOMEN: Soft , no tenderness EXTREMITIES: No edema feet - Labs CBC & Chem 7: 12/24/23 06:33 12/24/23 06:33 Labs: Abnormal Lab Results - Last 24 Hours (Table) 12/24/23 12/24/23 12/24/23 Range/Units 11:39 16:36 20:34 POC Glucose (mg/dL) 156 H 124 H 135 H (70-110) mg/dL 12/25/23 Range/Units 05:45 POC Glucose (mg/dL) 141 H (70-110) mg/dL Microbiology - Last 24 Hours (Table) 12/23/23 00:34 Urine Culture - Final Urine,Clean Catch Escherichia coli 12/23/23 03:07 Blood Culture - Preliminary Blood 12/23/23 03:07 Blood Culture - Preliminary Blood Assessment and Plan (1) Urinary tract infection Current Visit: Yes Status: Acute Code(s): N39.0 - URINARY TRACT INFECTION, SITE NOT SPECIFIED SNOMED Code(s): 40876795 (2) Sepsis Current Visit: No Status: Acute Code(s): A41.9 - SEPSIS, UNSPECIFIED ORGANI SM SNOMED Code(s): 49750641 Plan: 1patient with sepsis in this patient with fever tachycardia elevated white count meeting criteria for SIRS/sepsis source likely UTI underlying GI source such as diverticulitis/colitis not entirely excluded 2-CT abdominal pelvis is suspicious for focal diverticulitis/colitis stool for C. difficile negative urine is growing E. coli that is a sensitive pathogen 3-patient to continue with the Rocephin Flagyl has been complaining of some epigastric pain General surgery has been consulted will benefit from bowel rest and continue with antibiotics Dictation was produced using [employer] dictation software. please excuse any grammatical, word or spelling errors. Time with Patient: Less than 30
--- NOTE | 2023-12-25 15:18 | P.GSCN ---
History of Present Illness Consult date: 12/25/23 History of present illness: CHIEF COMPLAINT: Nausea vomiting and diarrhea HISTORY OF PRESENT ILLNESS: This is a 63-year-old female who presented to the hospital with complaints of nausea vomiting and diarrhea and pain to the lower abdomen. Patient reports symptoms started Thursday around 4:00 she became very nauseous and bloated and then by the evening she was having significant amount of vomiting and diarrhea. She denies any blood in the stool or emesis. She started to have chills she became concerned that she was becoming septic like her previous UTIs with sepsis and came into the ER for further evaluation. She had a CT scan completed that had shown diverticulitis versus colitis she was started on antibiotics. Patient had been febrile and tachycardic with leukocytosis. Patient reported that she had been feeling better and then yesterday evening she had increased epigastric abdominal pain with a low-grade fever of 100 and mildly tachycardic. Patient denies any prior history of diverticulitis her last colonoscopy was 1 to 2 years ago which she reports she had colon polyps and diverticulosis. Her EGD was done at that time as well and she reports she had a spot on the stomach. Patient's surgical history includes cholecystectomy and hysterectomy she also has a known history of congestive heart failure with a EF of 38%. Patient also history of breast cancer with bilateral mastectomy in 1994. She does have bilateral renal lesions which is followed by a kidney specialist out of [facility]. PAST MEDICAL HISTORY: See below PAST SURGICAL HISTORY: See below MEDICATIONS: See below ALLERGIES: See below SOCIAL HISTORY: No illicit drug use. REVIEW OF SYSTEMS: CONSTITUTIONAL: Denies fever or chills. HEENT: Denies blurred vision, vision changes, or eye pain. Denies hemoptysis CARDIOVASCULAR: Denies chest pain or pressure. RESPIRATORY: No shortness of breath. GASTROINTESTINAL: See HPI for pertinent findings HEMATOLOGIC: Denies bleeding disorders. GENITOURINARY: Denies any blood in urine or increased urinary frequency. SKIN: Denies pruitis. Denies rash. PHYSICAL EXAM: VITAL SIGNS: Reviewed GENERAL: Well-developed in no acute distress. HEENT: No sclera icterus. Extraocular movements grossly intact. Moist buccal mucosa. Head is atraumatic, normocephalic. No nasal drainage. ABDOMEN: Soft. Nondistended. Tenderness with palpation epigastric area. Patient does have a large pannus. Nontender in the left lower quadrant across the lower abdomen. NEUROLOGIC: Alert and oriented. Cranial nerves II through XII grossly intact. LABORATORY DATA: WBC 15.7 down to 10 Hgb 13.7 platelets 135 Sodium 139 potassium 4.1 creatinine 0.8 Lactic acid 2.2 down to 1.3 LFTs normal lipase normal Stool for C. difficile negative Influenza, RSV and COVID-19 not detected IMAGING: CT scan abdomen pelvis reports findings in the distal descending colon raise concern for diverticulitis or focal colitis. No evidence of bowel obstruction. Normal appendix. Multiple bilateral renal lesions redemonstrated most stable in size appearance from prior study. Abdominal x-ray pending ASSESSMENT: 1. Acute sigmoid diverticulitis versus colitis. Lower abdominal pain has improved. 2. Epigastric abdominal pain 3. Nausea and vomiting PLAN: -Continue to monitor -Continue IV Protonix twice a day -Continue antibiotics -Continue IV fluids -Continue supportive care Physician Brand Marketing Manager note has been reviewed by physician. Signing provider agrees with the documented findings, assessment, and plan of care. Past Medical History Past Medical History: Asthma, Cancer, Heart Failure, COPD, Diabetes Mellitus, GERD/Reflux, Hyperlipidemia, Hypertension, Osteoarthritis (OA), Sleep Apnea/CPAP/BIPAP, Thyroid Disorder Additional Past Medical History / Comment(s): HX MIGRAINES. DONALD BREAST CA. 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 USES CPAP. History of Any Multi-Drug Resistant Organisms: None Reported Past Surgical History: Breast Surgery, Cholecystectomy, Hysterectomy, Joint Replacement, Orthopedic Surgery Additional Past Surgical History / Comment(s): D&C'S. DONALD MASTECTOMY. DONALD KNEE ARTHROSCOPIES. EXC 2 BENIGN TUMORS FROM BACK. REPAIR FX JAW CHILD, TOTAL RIGHT KNEE Past Anesthesia/Blood Transfusion Reactions: Previous Problems w/ Anesthesia, Motion Sickness, Postoperative Nausea & Vomiting (PONV) Additional Past Anesthesia/Blood Transfusion Reaction / Comm: TAKES LONG TIME TO AWAKEN, OCC NAUSEA. Past Psychological History: No Psychological Hx Reported Smoking Status: Never smoker Past Alcohol Use History: None Reported Past Drug Use History: None Reported - Past Family History Mother Family Medical History: Deep Vein Thrombosis (DVT) Sister(s) Family Medical History: Cancer Medications and Allergies Home Medications Medication Instructions Recorded Confirmed Type Albuterol Nebulized [Ventolin 2.5 mg INHALATION RT-TID PRN 06/21/15 12/23/23 History Nebulized] Albuterol Sulfate [Proair Hfa] 2 puff INHALATION RT-TID PRN 06/21/15 12/23/23 History Atorvastatin [Lipitor] 20 mg PO HS 06/21/15 12/23/23 History Metoprolol Succinate [Toprol XL] 12.5 mg PO HS 06/21/15 12/23/23 History Levothyroxine Sodium [Synthroid] 125 mcg PO DAILY 02/01/19 12/23/23 History Aspirin EC [Ecotrin Low Dose] 81 mg PO DAILY 07/16/21 12/23/23 History lisinopriL [Zestril] 2.5 mg PO HS 07/16/21 12/23/23 History traMADol HCL 50 mg PO BID PRN 07/16/21 12/23/23 History Montelukast [Singulair] 10 mg PO HS 12/23/23 12/23/23 History Tirzepatide [Mounjaro] 5 mg SQ LANDERS 12/23/23 12/23/23 History Allergies Allergy/AdvReac Type Severity Reaction Status Date / Time carvedilol [From Coreg] AdvReac Gets hot Verified 12/23/23 08:01 and body turns red Surgical - Exam Vital Signs Temp Pulse Resp BP Pulse Ox 99.2 F 102 H 16 119/79 97 12/22/23 23:02 12/22/23 23:02 12/22/23 23:02 12/22/23 23:02 12/22/23 23:02 Results - Labs 12/24/23 06:33 12/24/23 06:33 Abnormal Lab Results - Last 24 Hours (Table) 12/24/23 12/24/23 12/25/23 Range/Units 16:36 20:34 05:45 POC Glucose (mg/dL) 124 H 135 H 141 H (70-110) mg/dL 12/25/23 Range/Units 11:36 POC Glucose (mg/dL) 118 H (70-110) mg/dL Microbiology - Last 24 Hours (Table) 12/23/23 03:07 Blood Culture - Preliminary Blood 12/23/23 03:07 Blood Culture - Preliminary Blood 12/23/23 00:34 Urine Culture - Final Urine,Clean Catch Escherichia coli
--- NOTE | 2023-12-25 15:31 | XR ---
EXAMINATION TYPE: XR abdomen 2V DATE OF EXAM: 12/25/2023 2:40 PM CLINICAL INDICATION:Female, 63 years old with history of epigastric pain; [facility] COMPARISON: 12/23/2023. TECHNIQUE: Two views of the abdomen were obtained. FINDINGS: The bowel gas pattern is nonspecific without dilated loops of small or large bowel. There i s no evidence for organomegaly or pneumoperitoneum. The osseous structures are intact. No abnormal calcifications are present. Fecal material and gas are demonstrated throughout the colon and rectum. Right upper quadrant cholecystectomy clips. Scattered colonic diverticula. IMPRESSION: Nonspecific bowel gas pattern without radiographic evidence for acute process.
[2023-12-25 16:28] LABS: Glucose,Whole Blood 168 mg/dL (70-110)
[2023-12-25 20:30] LABS: Glucose,Whole Blood 131 mg/dL (70-110)
--- NOTE | 2023-12-25 23:43 | P.PN ---
Subjective Progress Note Date: 12/25/23 Patient is a 63-year-old female came with complains of nausea vomiting diarrhea has been going on since yesterday patient is having significant diarrhea. Patient also complaining of some mild crampy abdominal pain bilateral lower quadrants patient denies any suprapubic pain patient denies any dysuria patient had fever here along with leukocytosis patient was presumed to have urinary tract infection because of mildly abnormal UTI and was given Rocephin and subsequently admitted. Patient any cough chest x-ray did not show any pneumonia. Patient feels slightly better but still nauseous. 12/24/2023 Patient is evaluated today on the medical floor, patient continues to report loose stools although does report improvement in abdominal pain. Patient had abdominal pelvis CT done which reveals concern for diverticulitis or focal colitis in the distal descending colon. There are multiple bilateral renal lesions most are stable in size and appearance from prior imaging these are noted since back in 2019. Patient is on IV ceftriaxone and oral flagyl. Urine culture does show gram negative bacilli however patient denies any urinary symptoms/dysuria. 12/25/2023 Patient is evaluated today in follow up sitting up in the chair. Reports worsening abdominal pain epigastric region and radiation to the back. Patient continues with episodes of loose stool. Febrile. Review of Systems Constitutional: Denied any fatigue denied any fever. Cardio vascular: denied any chest pain, palpitations Gastrointestinal: denied any nausea, vomiting, diarrhea Pulmonary: Denied any shortness of breath cough Neurologic denied any new focal deficits All inpatient medications were reviewed and appropriate changes in these medications as dictated in the interval history and assessment and plan. PHYSICAL EXAMINATION: GENERAL: The patient is alert and oriented x3, not in any acute distress. Obese HEENT: Pupils are round and equally reacting to light. EOMI. No scleral icterus. No conjunctival pallor. Normocephalic, atraumatic. No pharyngeal erythema. No thyromegaly. CARDIOVASCULAR: S1 and S2 present. No murmurs, rubs, or gallops. PULMONARY: Chest is clear to auscultation, no wheezing or crackles. ABDOMEN: Soft, nontender, nondistended, normoactive bowel sounds. No palpable organomegaly. MUSCULOSKELETAL: No joint swelling or deformity. EXTREMITIES: No cyanosis, clubbing, or pedal edema. NEUROLOGICAL: Gross neurological examination did not reveal any focal deficits. SKIN: Some redness in the center of the skin folds but patient uses nystatin powder. Assessment and plan -Sepsis: due to diverticulitis/colitis patient is on IV ceftriaxone and oral flagyl and ID following. Symptoms improving. UTI less likely as cause for symptoms. Worsening abdominal pain we will consult general surgery. -COPD without any acute exacerbation -Type 2 diabetes mellitus -Congestive heart failure not on any diuretics patient is on low-dose of metoprolol and lisinopril which are being held because of hypotension. Patient is euvolemic at this time unknown whether patient has systolic dysfunction or diastolic function -Bilate -Type 2 diabetes mellitus -Gastroesophageal flux disease -Peptic ulcer disease with acute gastritis patient was started on Protonix -Hyperlipidemia -Hypertension patient is presently hypotensive -Hypothyroidism For above-mentioned chronic medical problems patient resumed appropriate home medications DVT prophylaxis: Lovenox GI prophylaxis Protonix Full Code The impression and plan of care has been dictated by Jovita Davis, Nurse Practitioner as directed. Dr. Jermaine MD I have performed a history and physical examination and medical decision making of this patient, discussed the same with the dictator, and agree with the dictators assessment and plan as written, documented as a scribe. Based on total visit time, I have performed more than 50% of this visit. Objective - Vital Signs Vital signs: Vital Signs Temp 99.0 F 12/25/23 06:50 Pulse 85 12/25/23 06:50 Resp 18 12/25/23 06:50 BP 107/62 12/25/23 06:50 Pulse Ox 94 L 12/25/23 06:50 FiO2 Intake & Output 12/24/23 12/25/23 12/25/23 18:59 06:59 18:59 Other: Voiding Method Toilet Toilet # Voids 1 3 # Bowel Movements 1 - Labs CBC & Chem 7: 12/24/23 06:33 12/24/23 06:33 Labs: Abnormal Lab Results - Last 24 Hours (Table) 12/24/23 12/24/23 12/25/23 Range/Units 16:36 20:34 05:45 POC Glucose (mg/dL) 124 H 135 H 141 H (70-110) mg/dL 12/25/23 Range/Units 11:36 POC Glucose (mg/dL) 118 H (70-110) mg/dL Microbiology - Last 24 Hours (Table) 12/23/23 03:07 Blood Culture - Preliminary Blood 12/23/23 03:07 Blood Culture - Preliminary Blood 12/23/23 00:34 Urine Culture - Final Urine,Clean Catch Escherichia coli Assessment and Plan Time with Patient: Less than 30
[2023-12-26 06:05] LABS: Glucose,Whole Blood 148 mg/dL (70-110)
[2023-12-26 11:59] LABS: Glucose,Whole Blood 113 mg/dL (70-110)
[2023-12-26 12:55] LABS: Amylase 37 U/L (30-110); Lipase 72 U/L (23-300)
--- NOTE | 2023-12-26 14:03 | P.PN ---
Progress Note - Text Progress Note Date: 12/26/23 CHIEF COMPLAINT: Abdominal pain HISTORY OF PRESENT ILLNESS: NAEO PHYSICAL EXAM: VITAL SIGNS: Reviewed GENERAL: Well-developed in no acute distress. HEENT: No sclera icterus. Extraocular movements grossly intact. Moist buccal mucosa. Head is atraumatic, normocephalic. Hears conversational speech. No nasal drainage. NECK: Supple without lymphadenopathy. CHEST: Non-labored respirations and equal bilateral excursions. CARDIOVASCULAR: Palpable 2+ radial pulses. ABDOMEN: Soft. Mildly distended. Non tender MUSCULOSKELETAL: No clubbing or cyanosis. NEUROLOGIC: No focal or lateralizing signs. Cranial nerves II through XII grossly intact. PSYCH: Appropriate affect. Alert and oriented to person, place and time. SKIN: Well perfused. Good skin turgor. ASSESSMENT: 1. Acute sigmoid diverticulitis versus colitis. Lower abdominal pain has improved. 2. Epigastric abdominal pain 3. Nausea and vomiting PLAN: -Continue to monitor -Continue IV Protonix twice a day -Continue antibiotics -Continue IV fluids -Continue supportive care -Regular Diet
--- NOTE | 2023-12-26 15:04 | P.PN ---
Subjective Progress Note Date: 12/26/23 Principal diagnosis: Reason for follow-up is UTI/diverticulitis Patient is a 63-year-old female with a past medical history significant for diabetes mellitus hypertension hyperlipidemia osteoarthritis sleep apnea COPD heart failure and breast cancer patient presenting to the hospital concerning for nausea vomiting diarrhea also complaining of suprapubic pain, patient be diagnosed with a urinary tract infection and concern for possible intra-abdominal source with the CT suspicious for diverticulitis. On today's evaluation that is 12/26/2023, patient has been afebrile, patient is breathing comfortably and is currently on room air, patient denies having any significant cough no chest pain shortness of breath, patient denies nausea vomiting secondary to some epigastric discomfort lower abdominal pressure has improved diarrhea has decreased. No new lab has been obtained today blood culture negative Objective - Vital Signs Vital signs: Vital Signs Temp 98.1 F 12/26/23 07:28 Pulse 88 12/26/23 12:59 Resp 16 12/26/23 07:28 BP 150/98 12/26/23 07:28 Pulse Ox 96 12/26/23 07:28 FiO2 Intake & Output 12/25/23 12/26/23 12/26/23 18:59 06:59 18:59 Other: # Voids 2 2 - Exam GENERAL DESCRIPTION: An elderly female up in the chair in no distress RESPIRATORY SYSTEM: Unlabored breathing , decreased breath sounds at bases HEART: S1 S2 regular rate and rhythm , ABDOMEN: Soft , no tenderness EXTREMITIES: No edema feet - Labs CBC & Chem 7: 12/24/23 06:33 12/24/23 06:33 Labs: Abnormal Lab Results - Last 24 Hours (Table) 12/25/23 12/25/23 12/26/23 Range/Units 16:26 20:29 06:03 POC Glucose (mg/dL) 168 H 131 H 148 H (70-110) mg/dL 12/26/23 Range/Units 11:57 POC Glucose (mg/dL) 113 H (70-110) mg/dL Microbiology - Last 24 Hours (Table) 12/23/23 03:07 Blood Culture - Preliminary Blood 12/23/23 03:07 Blood Culture - Preliminary Blood Assessment and Plan (1) Urinary tract infection Current Visit: Yes Status: Acute Code(s): N39.0 - URINARY TRACT INFECTION, SITE NOT SPECIFIED SNOMED Code(s): 09168827 (2) Sepsis Current Visit: No Status: Acute Code(s): A41.9 - SEPSIS, UNSPECIFIED ORGANISM SNOMED Code(s): 15089518 Plan: 1patient with sepsis in this patient with fever tachycardia elevated white count meeting criteria for SIRS/sepsis source likely UTI underlying GI source such as diverticulitis/colitis not entirely excluded 2-CT abdominal pelvis is suspicious for focal diverticulitis/colitis stool for C. difficile negative urine is growing E. coli that is a sensitive pathogen 3-patient did have some clinical improvement, to continue with the Rocephin Flagyl we will repeat CBC with a.m. lab to make sure white count is normal Dictation was produced using [employer] dictation software. please excuse any grammatical, word or spelling errors. Time with Patient: Less than 30
--- NOTE | 2023-12-26 16:01 | P.PN ---
Subjective Progress Note Date: 12/26/23 Patient is a 63-year-old female came with complains of nausea vomiting diarrhea has been going on since yesterday patient is having significant diarrhea. Patient also complaining of some mild crampy abdominal pain bilateral lower quadrants patient denies any suprapubic pain patient denies any dysuria patient had fever here along with leukocytosis patient was presumed to have urinary tract infection because of mildly abnormal UTI and was given Rocephin and subsequently admitted. Patient any cough chest x-ray did not show any pneumonia. Patient feels slightly better but still nauseous. 12/24/2023 Patient is evaluated today on the medical floor, patient continues to report loose stools although does report improvement in abdominal pain. Patient had abdominal pelvis CT done which reveals concern for diverticulitis or focal colitis in the distal descending colon. There are multiple bilateral renal lesions most are stable in size and appearance from prior imaging these are noted since back in 2019. Patient is on IV ceftriaxone and oral flagyl. Urine culture does show gram negative bacilli however patient denies any urinary symptoms/dysuria. 12/25/2023 Patient is evaluated today in follow up sitting up in the chair. Reports worsening abdominal pain epigastric region and radiation to the back. Patient continues with episodes of loose stool. Febrile. 12/26/2023 Patient is evaluated today in follow-up has been continued overnight on IV ceftriaxone and oral Flagyl. Patient reports worsening epigastric discomfort at this time with tender to palpation. Patient does not oxygen having worsening diarrhea. Urine culture showing E. coli which is pansensitive at this time. Amylase and lipase are within normal limits. General surgery was consulted and following recommend to continue current antibiotics and symptomatic care. Review of Systems Constitutional: Denied any fatigue denied any fever. Cardio vascular: denied any chest pain, palpitations Gastrointestinal: denied any nausea, vomiting, diarrhea Pulmonary: Denied any shortness of breath cough Neurologic denied any new focal deficits All inpatient medications were reviewed and appropriate changes in these medications as dictated in the interval history and assessment and plan. PHYSICAL EXAMINATION: GENERAL: The patient is alert and oriented x3, not in any acute distress. Obese HEENT: Pupils are round and equally reacting to light. EOMI. No scleral icterus. No conjunctival pallor. Normocephalic, atraumatic. No pharyngeal erythema. No thyromegaly. CARDIOVASCULAR: S1 and S2 present. No murmurs, rubs, or gallops. PULMONARY: Chest is clear to auscultation, no wheezing or crackles. ABDOMEN: Soft, nontender, nondistended, normoactive bowel sounds. No palpable organomegaly. MUSCULOSKELETAL: No joint swelling or deformity. EXTREMITIES: No cyanosis, clubbing, or pedal edema. NEUROLOGICAL: Gross neurological examination did not reveal any focal deficits. SKIN: Some redness in the center of the skin folds but patient uses nystatin powder. Assessment and plan -Sepsis: due to diverticulitis/colitis patient is on IV ceftriaxone and oral flagyl and ID following. Symptoms improving. UTI less likely as cause for symptoms. Worsening epigastric pain concern for mild pancreatitis versus gastritis. Amylase lipase are within normal limits. Protonix has been increased to twice a day -COPD without any acute exacerbation -Type 2 diabetes mellitus -Congestive heart failure not on any diuretics patient is on low-dose of metoprolol and lisinopril which are being held because of hypotension. Patient is euvolemic at this time unknown whether patient has systolic dysfunction or diastolic function -Type 2 diabetes mellitus -Gastroesophageal flux disease -Peptic ulcer disease with acute gastritis patient was started on Protonix -Hyperlipidemia -Hypertension patient is presently hypotensive -Hypothyroidism For above-mentioned chronic medical problems patient resumed appropriate home medications DVT prophylaxis: Lovenox GI prophylaxis Protonix Full Code The impression and plan of care has been dictated by Jovita Davis, Nurse Practitioner as directed. Dr. Jermaine MD I have performed a history and physical examination and medical decision making of this patient, discussed the same with the dictator, and agree with the dictators assessment and plan as written, documented as a scribe. Based on total visit time, I have performed more than 50% of this visit. Objective - Vital Signs Vital signs: Vital Signs Temp 98.6 F 12/26/23 14:04 Pulse 85 12/26/23 14:04 Resp 17 12/26/23 14:04 BP 114/64 12/26/23 14:04 Pulse Ox 94 L 12/26/23 14:04 FiO2 Intake & Output 12/25/23 12/26/23 12/26/23 18:59 06:59 18:59 Other: Voiding Method Toilet # Voids 2 2 1 - Labs CBC & Chem 7: 12/24/23 06:33 12/24/23 06:33 Labs: Abnormal Lab Results - Last 24 Hours (Table) 12/25/23 12/25/23 12/26/23 Range/Units 16:26 20:29 06:03 POC Glucose (mg/dL) 168 H 131 H 148 H (70-110) mg/dL 12/26/23 Range/Units 11:57 POC Glucose (mg/dL) 113 H (70-110) mg/dL Microbiology - Last 24 Hours (Table) 12/23/23 03:07 Blood Culture - Preliminary Blood 12/23/23 03:07 Blood Culture - Preliminary Blood Assessment and Plan Time with Patient: Less than 30
[2023-12-26 16:41] LABS: Glucose,Whole Blood 199 mg/dL (70-110)
[2023-12-26] MEDS: CHOLESTYRAMINE (WITH SUGAR) 4 GM PACKET PO SCH (16:52)
[2023-12-26] MEDS: KETOROLAC 15 MG/ML 1 ML VIAL IVP PRN (16:57)
[2023-12-26 21:40] LABS: Glucose,Whole Blood 143 mg/dL (70-110)
[2023-12-27 06:06] LABS: Glucose,Whole Blood 127 mg/dL (70-110)
[2023-12-27 09:35] LABS: Basophils # (A) 0.06 X 10*3/uL (0.00-0.10); Basophils % (A) 0.6 %; Eosinophils # (A) 0.36 X 10*3/uL (0.04-0.35); Eosinophils % (A) 3.6 %; HCT 36.1 % (37.2-46.3); HGB 11.8 g/dL (12.0-15.0); Lymphocytes # (A) 3.58 X 10*3/uL (0.90-5.00); Lymphocytes % (A) 35.9 %; MCH 28.7 pg (27.0-32.0); MCHC 32.7 g/dL (32.0-37.0); MCV 87.8 FL (80.0-97.0); Mean Platelet Volume 10.2 FL (9.5-12.2); Monocytes # (A) 1.06 X 10*3/uL (0.20-1.00); Monocytes % (A) 10.6 %; NRBC Per 100 WBC 0 X 10*3/uL (0.00-0.01); Neutrophils # (A) 4.87 X 10*3/uL (1.80-7.70); Neutrophils % (A) 48.8 %; Platelet Count 147 X 10*3/uL (140-440); RBC 4.11 X 10*6/uL (4.10-5.20); RDW 13.8 % (11.5-14.5); WBC 9.98 X 10*3/uL (4.50-10.00)
[2023-12-27 09:49] LABS: ALT 28 U/L (8-44); AST 30 U/L (13-35); Albumin 3.2 g/dL (3.8-4.9); Alkaline Phosphatase 66 U/L (41-126); Calcium 8.2 mg/dL (8.7-10.3); Carbon Dioxide 19.2 mmol/L (21.6-31.8); Chloride 110 mmol/L (96-109); Glucose 147 mg/dL (70-110); Potassium 3.7 mmol/L (3.5-5.5); Sodium 140 mmol/L (135-145); Total Bilirubin 0.3 mg/dL (0.3-1.2); Total Protein 5.2 g/dL (6.2-8.2)
--- NOTE | 2023-12-27 10:28 | XR ---
EXAMINATION TYPE: XR chest 2V DATE OF EXAM: 12/27/2023 COMPARISON: 12/23/2023 HISTORY: Shortness of breath TECHNIQUE: Frontal and lateral views of the chest are obtained. FINDINGS: Scattered senescent parenchymal changes noted. Hyperinflation compatible with COPD. Scattered bilateral linear opacities may reflect atelectasis and/or developing infiltrates. Heart size is stable. Mediastinal structures are stable and grossly unremarkable. No evidence for hilar prominence. Degenerative changes dorsal spine. IMPRESSION: 1. Scattered bilateral linear opacities may reflect atelectasis and/or developing infiltrates.
[2023-12-27 11:35] LABS: Glucose,Whole Blood 141 mg/dL (70-110)
--- NOTE | 2023-12-27 12:29 | P.PN ---
Subjective Progress Note Date: 12/27/23 Principal diagnosis: Reason for follow-up is UTI/diverticulitis Patient is a 63-year-old female with a past medical history significant for diabetes mellitus hypertension hyperlipidemia osteoarthritis sleep apnea COPD heart failure and breast cancer patient presenting to the hospital concerning for nausea vomiting diarrhea also complaining of suprapubic pain, patient be diagnosed with a urinary tract infection and concern for possible intra-abdominal source with the CT suspicious for diverticulitis. On today's evaluation that is 12/27/2023, Patient is afebrile this morning and denies any chills, patient mention breathing comfortably and is currently on room air, patient denies any chest pain occasional cough patient has been on room air with some epigastric discomfort however seem to have improved no nausea vomiting no lower abdominal pain had did have resolution of diarrhea. Patient white count is 9.98, creatinine 0.96 did have a chest x-ray this morning concerning for atelectasis Objective - Vital Signs Vital signs: Vital Signs Temp 98.6 F 12/27/23 07:22 Pulse 84 12/27/23 09:09 Resp 17 12/27/23 08:00 BP 134/78 12/27/23 07:22 Pulse Ox 95 12/27/23 07:22 FiO2 Intake & Output 12/26/23 12/27/23 12/27/23 18:59 06:59 18:59 Other: Voiding Method Toilet Toilet Toilet # Voids 1 5 - Exam GENERAL DESCRIPTION: An elderly female up in the chair in no distress RESPIRATORY SYSTEM: Unlabored breathing , decreased breath sounds at bases HEART: S1 S2 regular rate and rhythm , ABDOMEN: Soft , no tenderness EXTREMITIES: No edema feet - Labs CBC & Chem 7: 12/27/23 03:52 12/27/23 03:52 Labs: Abnormal Lab Results - Last 24 Hours (Table) 12/26/23 12/26/23 12/27/23 Range/Units 16:39 21:39 03:52 Hgb 11.8 L (12.0-15.0) g/dL Hct 36.1 L (37.2-46.3) % Immature Gran # 0.05 H (0.00-0.04) X 10*3/uL Monocytes # 1.06 H (0.20-1.00) X 10*3/uL Eosinophils # 0.36 H (0.04-0.35) X 10*3/uL Chloride (96-109) mmol/L Carbon Dioxide (21.6-31.8) mmol/L BUN/Creatinine Ratio (12.00-20.00) Ratio Glucose (70-110) mg/dL POC Glucose (mg/dL) 199 H 143 H (70-110) mg/dL Calcium (8.7-10.3) mg/dL C-Reactive Protein (0.00-0.80) mg/dL Total Protein (6.2-8.2) g/dL Albumin (3.8-4.9) g/dL 12/27/23 12/27/23 12/27/23 Range/Units 03:52 06:06 11:34 Hgb (12.0-15.0) g/dL Hct (37.2-46.3) % Immature Gran # (0.00-0.04) X 10*3/uL Monocytes # (0.20-1.00) X 10*3/uL Eosinophils # (0.04-0.35) X 10*3/uL Chloride 110 H (96-109) mmol/L Carbon Dioxide 19.2 L (21.6-31.8) mmol/L BUN/Creatinine Ratio 10.00 L (12.00-20.00) Ratio Glucose 147 H (70-110) mg/dL POC Glucose (mg/dL) 127 H 141 H (70-110) mg/dL Calcium 8.2 L (8.7-10.3) mg/dL C-Reactive Protein 5.20 H (0.00-0.80) mg/dL Total Protein 5.2 L (6.2-8.2) g/dL Albumin 3.2 L (3.8-4.9) g/dL Microbiology - Last 24 Hours (Table) 12/23/23 03:07 Blood Culture - Preliminary Blood 12/23/23 03:07 Blood Culture - Preliminary Blood Assessment and Plan (1) Urinary tract infection Current Visit: Yes Status: Acute Code(s): N39.0 - URINARY TRACT INFECTION, SITE NOT SPECIFIED SNOMED Code(s): 72122445 (2) Sepsis Current Visit: No Status: Acute Code(s): A41.9 - SEPSIS, UNSPECIFIED ORGANISM SNOMED Code(s): 33298038 Plan: 1patient with sepsis in this patient with fever tachycardia elevated white count meeting criteria for SIRS/sepsis source likely UTI underlying GI source such as diverticulitis/colitis not entirely excluded 2-CT abdominal pelvis is suspicious for focal diverticulitis/colitis stool for C. difficile negative urine is growing E. coli that is a sensitive pathogen 3-patient slowly clinical improving is afebrile white count has normalized continue with the Rocephin and Flagyl finishing therapy with oral antibiotics discussed with CONTINUOUS MINING MACHINE OPERATOR for admitting team Dictation was produced using [employer] dictation software. please excuse any grammatical, word or spelling errors. Time with Patient: Less than 30
--- NOTE | 2023-12-27 12:30 | P.PN ---
Subjective Progress Note Date: 12/27/23 Principal diagnosis: Diverticulitis Patient says she feels better. She was having more upper abdominal pain and most of that has gone away. Still feels some bloating and some upper abdominal pressure. She had a chest x-ray this morning. She is asking for more to eat. No bowel complaints at this time. Last colonoscopy 2 years ago. Objective - Vital Signs Vital signs: Vital Signs Temp 98.6 F 12/27/23 07:22 Pulse 84 12/27/23 09:09 Resp 17 12/27/23 08:00 BP 134/78 12/27/23 07:22 Pulse Ox 95 12/27/23 07:22 FiO2 Intake & Output 12/26/23 12/27/23 12/27/23 18:59 06:59 18:59 Other: Voiding Method Toilet Toilet Toilet # Voids 1 5 - Exam Abdomen: Soft, mild epigastric tenderness, no rebound or guarding - Labs CBC & Chem 7: 12/27/23 03:52 12/27/23 03:52 Labs: Abnormal Lab Results - Last 24 Hours (Table) 12/26/23 12/26/23 12/27/23 Range/Units 16:39 21:39 03:52 Hgb 11.8 L (12.0-15.0) g/dL Hct 36.1 L (37.2-46.3) % Immature Gran # 0.05 H (0.00-0.04) X 10*3/uL Monocytes # 1.06 H (0.20-1.00) X 10*3/uL Eosinophils # 0.36 H (0.04-0.35) X 10*3/uL Chloride (96-109) mmol/L Carbon Dioxide (21.6-31.8) mmol/L BUN/Creatinine Ratio (12.00-20.00) Ratio Glucose (70-110) mg/dL POC Glucose (mg/dL) 199 H 143 H (70-110) mg/dL Calcium (8.7-10.3) mg/dL C-Reactive Protein (0.00-0.80) mg/dL Total Protein (6.2-8.2) g/dL Albumin (3.8-4.9) g/dL 12/27/23 12/27/23 12/27/23 Range/Units 03:52 06:06 11:34 Hgb (12.0-15.0) g/dL Hct (37.2-46.3) % Immature Gran # (0.00-0.04) X 10*3/uL Monocytes # (0.20-1.00) X 10*3/uL Eosinophils # (0.04-0.35) X 10*3/uL Chloride 110 H (96-109) mmol/L Carbon Dioxide 19.2 L (21.6-31.8) mmol/L BUN/Creatinine Ratio 10.00 L (12.00-20.00) Ratio Glucose 147 H (70-110) mg/dL POC Glucose (mg/dL) 127 H 141 H (70-110) mg/dL Calcium 8.2 L (8.7-10.3) mg/dL C-Reactive Protein 5.20 H (0.00-0.80) mg/dL Total Protein 5.2 L (6.2-8.2) g/dL Albumin 3.2 L (3.8-4.9) g/dL Microbiology - Last 24 Hours (Table) 12/23/23 03:07 Blood Culture - Preliminary Blood 12/23/23 03:07 Blood Culture - Preliminary Blood Assessment and Plan Plan: Patient seems to be doing somewhat better. We were consulted for possible diverticulitis involving the sigmoid colon. Patient says her last colonoscopy was [address] Bell. She states that was normal. Continued regular diet. Ambulate. Will follow.
--- NOTE | 2023-12-27 16:20 | P.PN ---
Subjective Progress Note Date: 12/27/23 Patient is a 63-year-old female came with complains of nausea vomiting diarrhea has been going on since yesterday patient is having significant diarrhea. Patient also complaining of some mild crampy abdominal pain bilateral lower quadrants patient denies any suprapubic pain patient denies any dysuria patient had fever here along with leukocytosis patient was presumed to have urinary tract infection because of mildly abnormal UTI and was given Rocephin and subsequently admitted. Patient any cough chest x-ray did not show any pneumonia. Patient feels slightly better but still nauseous. 12/24/2023 Patient is evaluated today on the medical floor, patient continues to report loose stools although does report improvement in abdominal pain. Patient had abdominal pelvis CT done which reveals concern for diverticulitis or focal colitis in the distal descending colon. There are multiple bilateral renal lesions most are stable in size and appearance from prior imaging these are noted since back in 2019. Patient is on IV ceftriaxone and oral flagyl. Urine culture does show gram negative bacilli however patient denies any urinary symptoms/dysuria. 12/25/2023 Patient is evaluated today in follow up sitting up in the chair. Reports worsening abdominal pain epigastric region and radiation to the back. Patient continues with episodes of loose stool. Febrile. 12/26/2023 Patient is evaluated today in follow-up has been continued overnight on IV ceftriaxone and oral Flagyl. Patient reports worsening epigastric discomfort at this time with tender to palpation. Patient does not oxygen having worsening diarrhea. Urine culture showing E. coli which is pansensitive at this time. Amylase and lipase are within normal limits. General surgery was consulted and following recommend to continue current antibiotics and symptomatic care. 12/27/2023 Patient is evaluated today in follow-up on the medical floor. Patient reports improvement in her diarrhea essentially negative since patient is and started on Questran. Patient currently reporting no fever chills overnight she is having some mild shortness of breath. Remains on IV ceftriaxone and IV metronidazole for positive UTI and concern for diverticulitis. Amylase and lipase are within normal limits. Patient is on room air. Review of Systems Constitutional: Denied any fatigue denied any fever. Cardio vascular: denied any chest pain, palpitations Gastrointestinal: denied any nausea, vomiting, diarrhea Pulmonary: Reports shortness of breath cough Neurologic denied any new focal deficits All inpatient medications were reviewed and appropriate changes in these medications as dictated in the interval history and assessment and plan. PHYSICAL EXAMINATION: GENERAL: The patient is alert and oriented x3, not in any acute distress. Obese HEENT: Pupils are round and equally reacting to light. EOMI. No scleral icterus. No conjunctival pallor. Normocephalic, atraumatic. No pharyngeal erythema. No thyromegaly. CARDIOVASCULAR: S1 and S2 present. No murmurs, rubs, or gallops. PULMONARY: Faint bibasilar crackles ABDOMEN: Soft, nontender, nondistended, normoactive bowel sounds. No palpable organomegaly. MUSCULOSKELETAL: No joint swelling or deformity. EXTREMITIES: No cyanosis, clubbing, or pedal edema. NEUROLOGICAL: Gross neurological examination did not reveal any focal deficits. SKIN: Some redness in the center of the skin folds but patient uses nystatin powder. Assessment and plan -Sepsis: due to diverticulitis/colitis patient is on IV ceftriaxone and oral flagyl and ID following. Symptoms improving. UTI less likely as cause for symptoms. Worsening epigastric pain concern for mild pancreatitis versus gastri tis. Amylase lipase are within normal limits. Protonix has been increased to twice a day -Atelectasis noted on chest xray; patient has been ordered for incentive spirometer 10 x an hour while awake. -COPD without any acute exacerbation -Type 2 diabetes mellitus -Congestive heart failure not on any diuretics patient is on low-dose of metoprolol and lisinopril which are being held because of hypotension. Patient is euvolemic at this time unknown whether patient has systolic dysfunction or diastolic function -Type 2 diabetes mellitus -Gastroesophageal flux disease -Peptic ulcer disease with acute gastritis patient was started on Protonix -Hyperlipidemia -Hypertension patient is presently hypotensive -Hypothyroidism For above-mentioned chronic medical problems patient resumed appropriate home medications DVT prophylaxis: Lovenox GI prophylaxis Protonix Full Code Chest xray ordered Continue incentive spirometer 10 x an hour while awake. Repeat blood work. continue antibiotics. ID following. Possible D/C in the next 24 hours. The impression and plan of care has been dictated by Jovita Davis, Nurse Practitioner as directed. Dr. Jermaine MD I have performed a history and physical examination and medical decision making of this patient, discussed the same with the dictator, and agree with the dictators assessment and plan as written, documented as a scribe. Based on total visit time, I have performed more than 50% of this visit. Objective - Vital Signs Vital signs: Vital Signs Temp 98.6 F 12/27/23 07:22 Pulse 83 12/27/23 07:22 Resp 17 12/27/23 07:22 BP 134/78 12/27/23 07:22 Pulse Ox 95 12/27/23 07:22 FiO2 Intake & Output 12/26/23 12/27/23 12/27/23 18:59 06:59 18:59 Other: Voiding Method Toilet Toilet # Voids 1 5 - Labs CBC & Chem 7: 12/27/23 03:52 12/27/23 03:52 Labs: Abnormal Lab Results - Last 24 Hours (Table) 12/26/23 12/26/23 12/26/23 Range/Units 11:57 16:39 21:39 POC Glucose (mg/dL) 113 H 199 H 143 H (70-110) mg/dL 12/27/23 Range/Units 06:06 POC Glucose (mg/dL) 127 H (70-110) mg/dL Microbiology - Last 24 Hours (Table) 12/23/23 03:07 Blood Culture - Preliminary Blood 12/23/23 03:07 Blood Culture - Preliminary Blood Assessment and Plan Time with Patient: Less than 30
[2023-12-27 16:34] LABS: Glucose,Whole Blood 118 mg/dL (70-110)
[2023-12-27] MEDS: POTASSIUM CHLORIDE ER 10 MEQ TAB.ER.PRT PO STA (17:10)
[2023-12-27] MEDS: MONTELUKAST 10 MG TAB PO SCH (20:12)
[2023-12-27 21:23] LABS: Glucose,Whole Blood 140 mg/dL (70-110)
[2023-12-28] MEDS: ALBUTEROL HFA INHALER INHALATION PRN (01:18)
[2023-12-28] MEDS: FUROSEMIDE 10 MG/ML 4 ML VIAL IV STA (01:36)
[2023-12-28] MEDS: ALPRAZolam 0.25 MG TAB PO PRN (01:52)
[2023-12-28 03:07] LABS: African American GFR (CKD) 87 (>60 ml/min/1.73 sqM); Anion Gap 11 mmol/L; Blood Urea Nitrogen 10 mg/dL (7-17); Calcium 9.4 mg/dL (8.4-10.2); Carbon Dioxide 18 mmol/L (22-30); Chloride 110 mmol/L (98-107); Glucose 145 mg/dL (74-99); Non-African American GFR(CKD) 75 (>60 ml/min/1.73 sqM); Potassium 4.4 mmol/L (3.5-5.1); Sodium 139 mmol/L (137-145)
[2023-12-28 03:16] LABS: NT-Pro-B-Type Natriuretic Pept 5120 pg/mL
--- NOTE | 2023-12-28 03:19 | XR ---
EXAM: XR Chest, 1 View CLINICAL HISTORY: ITS.REASON XR Reason: shortness of breath TECHNIQUE: Frontal view of the chest. COMPARISON: No relevant prior studies available. IMPRESSION: Cardiomegaly. Moderate vascular congestion. Bibasilar opacities.
[2023-12-28 06:11] LABS: Glucose,Whole Blood 154 mg/dL (70-110)
--- NOTE | 2023-12-28 06:23 | CT ---
EXAM: CT Angiography Chest With Intravenous Contrast CLINICAL HISTORY: Elevated D-dimer TECHNIQUE: Axial computed tomographic angiography images of the chest with intravenous contrast. CTDI is 21.07 mGy and DLP is 502.2 mGy-cm. This CT exam was performed using one or more of the following dose reduction techniques: automated exposure control, adjustment of the mA and/or kV according to patient size, and/or use of iterative reconstruction technique. MIP reconstructed images were created and reviewed. Coronal and sagittal reformatted images were created and reviewed. COMPARISON: No relevant prior studies available. FINDINGS: Pulmonary arteries: No pulmonary embolism. Aorta: Small amount of atherosclerotic calcifications. No thoracic aortic aneurysm. Lungs: Mild pulmonary edema. Pleural space: Moderate bilateral pleural effusions with compressive atelectasis. No pneumothorax. Heart: Unremarkable. No cardiomegaly. No significant pericardial effusion. No evidence of RV dysfunction. Bones/joints: No acute findings. Soft tissues: Unremarkable. Lymph nodes: Unremarkable. No enlarged lymph nodes. Gallbladder and bile ducts: Cholecystectomy clips. Kidneys and ureters: 6.7 cm exophytic anterior left renal cyst. IMPRESSION: 1. No pulmonary embolism. 2. Moderate bilateral pleural effusions with compressive atelectasis. 3. Mild pulmonary edema.
[2023-12-28] MEDS: FUROSEMIDE 10 MG/ML 4 ML VIAL IV SCH (08:02)
[2023-12-28 11:16] LABS: Glucose,Whole Blood 99 mg/dL (70-110)
[2023-12-28] MEDS: TIRZEPATIDE 5 MG/0.5 ML SQ SCH (12:02)
--- NOTE | 2023-12-28 12:41 | P.PN ---
Subjective Progress Note Date: 12/28/23 CHIEF COMPLAINT: Diverticulitis HISTORY OF PRESENT ILLNESS: Patient denies any abdominal pain. She reports she is feeling better. She is tolerating diet. Her upper abdominal pressure is resolved. She reports it is related to all her fluid overload and that improved with the Lasix. CTA had reported no PE and pulmonary edema. Last colonoscopy 2 years ago reported as normal. PHYSICAL EXAM: VITAL SIGNS: Reviewed. GENERAL: Well-developed in no acute distress. ABDOMEN: Soft. Nondistended. Nontender. NEUROLOGIC: Alert and oriented. Cranial nerves II through XII grossly intact. ASSESSMENT: 1. Diverticulitis of the sigmoid colon PLAN: -Continue antibiotics -Continue regular diet -Encourage patient to ambulate Physician Building Performance Specialist note has been reviewed by physician. Signing provider agrees with the documented findings, assessment, and plan of care. I have personally seen and examined the patient, reviewed the SUPERVISOR [employer]S /PAs history, exam and MDM and agree with the assessment and plan as written. Based on total visit time, I have performed more than 50% of the visit. As above: Patient had some shortness of breath last night. No abdominal pain. The pain she was experiencing in the upper abdomen has resolved as well. Continue regular diet. CAT scan showing focal thickening of the sigmoid colon. Consider repeating colonoscopy as outpatient. Will make arrangements for outpatient follow-up. Will sign off. Please call if needed. Objective - Vital Signs Vital signs: Vital Signs Temp 98.2 F 12/28/23 11:09 Pulse 79 12/28/23 11:09 Resp 16 12/28/23 11:09 BP 115/61 12/28/23 11:09 Pulse Ox 97 12/28/23 11:09 FiO2 Intake & Output 12/27/23 12/28/23 12/28/23 18:59 06:59 18:59 Intake Total 1050 110 Output Total 1250 Balance 1050 -1140 Intake: Intake, IV Titration 1050 Amount Sodium Chloride 0.9% 1, 1000 000 ml @ 100 mls/hr IV . Q10H [place] Rx#:[id number] cefTRIAXone 2 gm In 50 Sodium Chloride 0.9% 50 ml @ 100 mls/hr IVPB Q24HR [place] Rx#:[id number] Oral 110 Output: Urine 1250 Other: Voiding Method Toilet Toilet Toilet # Voids 4 - Labs CBC & Chem 7: 12/27/23 03:52 12/28/23 01:52 Labs: Abnormal Lab Results - Last 24 Hours (Table) 12/27/23 12/27/23 12/28/23 Range/Units 16:32 21:21 01:46 D-Dimer 1.62 H (<0.60) mg/L FEU Chloride (98-107) mmol/L Carbon Dioxide (22-30) mmol/L Glucose (74-99) mg/dL POC Glucose (mg/dL) 118 H 140 H (70-110) mg/dL 12/28/23 12/28/23 Range/Units 01:52 06:09 D-Dimer (<0.60) mg/L FEU Chloride 110 H (98-107) mmol/L Carbon Dioxide 18 L (22-30) mmol/L Glucose 145 H (74-99) mg/dL POC Glucose (mg/dL) 154 H (70-110) mg/dL
--- NOTE | 2023-12-28 14:21 | P.CRDCN ---
History of Present Illness Consult date: 12/28/23 Consult reason: congestive heart failure History of present illness: This is a 63-year-old woman initially presented to the emergency center on 12/21 with nausea, vomiting, diarrhea, admitted to the hospital and treated for sepsis secondary to diverticulitis/colitis on IV antibiotics, possible pancreatitis and acute gastritis. Patient also has past medical history of COPD, diabetes mellitus type 2, gastroesophageal reflux disease, hypertension, hyperlipidemia, hypothyroidism. We have been asked to evaluate the patient for heart failure. Patient states she developed shortness of breath this morning was given 1 dose of IV Lasix 40 mg followed by 40 mg at every 12 hours. She states she has urinated quite a bit. She states that she was very upset this morning and contacted her PCP in the [place] area and wanted to be transferred because she had too much fluid in her body. She states she has urinated quite a bit since she received the IV Lasix and at this time, has received 2 doses. IV fluids were discontinued. EKG: Sinus rhythm with left bundle branch block Chest x-ray: Moderate vascular congestion. Bibasilar opacities CTA of the chest for elevated D-dimer revealed no pulmonary embolism. Moderate bilateral pleural effusions with compressive atelectasis. Mild pulmonary edema. Laboratory studies: Sodium 139, potassium 4.4, creatinine 0.82. proBNP 5120. Magnesium 1.8. Home cardiac medications: Aspirin 81 mg daily, atorvastatin 20 mg at bedtime, lisinopril 2.5 mg at bedtime, Toprol-XL 12.5 mg at bedtime, also on Synthroid and Mounjaro. Review Of Systems: At the time of my exam: CONSTITUTIONAL: Denies fever or chills. HEENT: Denies blurred vision, vision changes, or eye pain. Denies hemoptysis CARDIOVASCULAR: Denies chest pain. Denies orthopnea. Denies PND. Denies palpitations RESPIRATORY: Denies shortness of breath. GASTROINTESTINAL: Denies abdominal pain. Denies nausea or vomiting. HEMATOLOGIC: Denies bleeding disorders. GENITOURINARY: Denies any blood in urine. SKIN: Denies puritis. Denies rash. Physical examination: Gen: This is a obese 63-year-old female in no acute distress VS: reviewed HEENT: Head is atraumatic, normocephalic. Pupils equal, round. Sclerae is anicteric. NECK: Supple. No JVD. LUNGS: Clear to auscultation. No wheezes or rhonchi. No intercostal retract ions. HEART: Regular rate and rhythm. No murmur. ABDOMEN: Soft No tenderness. EXTREMITIES: No pedal edema. No calf tenderness. NEUROLOGICAL: Patient is awake, alert and oriented x3. Assessment: Iatrogenic fluid overload Sepsis secondary to diverticulitis/colitis Possible pancreatitis, gastritis COPD Diabetes mellitus type 2 Gastroesophageal reflux disease Hypertension Hyperlipidemia Hypothyroidism Plan: Continue patient's home cardiac medications Continue IV Lasix 40 mg every 12 hours for about 1 more day and will reassess tomorrow Further recommendations to follow based upon clinical course Thank you kindly for this consultation. Nurse practitioner note has been reviewed, I agree with documented findings and plan of care. Patient was seen and examined. Past Medical History Past Medical History: Asthma, Cancer, Heart Failure, COPD, Diabetes Mellitus, GERD/Reflux, Hyperlipidemia, Hypertension, Osteoarthritis (OA), Sleep Apnea/CPAP/BIPAP, Thyroid Disorder Additional Past Medical History / Comment(s): HX MIGRAINES. DONALD BREAST CA. 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 USES CPAP. History of Any Multi-Drug Resistant Organisms: None Reported Past Surgical History: Breast Surgery, Cholecystectomy, Hysterectomy, Joint Replacement, Orthopedic Surgery Additional Past Surgical History / Comment(s): D&C'S. DONALD MASTECTOMY. DONALD KNEE ARTHROSCOPIES. EXC 2 BENIGN TUMORS FROM BACK. REPAIR FX JAW CHILD, TOTAL RIGHT KNEE Past Anesthesia/Blood Transfusion Reactions: Previous Problems w/ Anesthesia, Motion Sickness, Postoperative Nausea & Vomiting (PONV) Additional Past Anesthesia/Blood Transfusion Reaction / Comment(s): TAKES LONG TIME TO AWAKEN, OCC NAUSEA. Past Psychological History: No Psychological Hx Reported Smoking Status: Never smoker Past Alcohol Use History: None Reported Past Drug Use History: None Reported - Past Family History Mother Family Medical History: Deep Vein Thrombosis (DVT) Sister(s) Family Medical History: Cancer Medications and Allergies Home Medications Medication Instructions Recorded Confirmed Type Albuterol Nebulized [Ventolin 2.5 mg INHALATION RT-TID PRN 06/21/15 12/23/23 History Nebulized] Albuterol Sulfate [Proair Hfa] 2 puff INHALATION RT-TID PRN 06/21/15 12/23/23 History Atorvastatin [Lipitor] 20 mg PO HS 06/21/15 12/23/23 History Metoprolol Succinate [Toprol XL] 12.5 mg PO HS 06/21/15 12/23/23 History Levothyroxine Sodium [Synthroid] 125 mcg PO DAILY 02/01/19 12/23/23 History Aspirin EC [Ecotrin Low Dose] 81 mg PO DAILY 07/16/21 12/23/23 History lisinopriL [Zestril] 2.5 mg PO HS 07/16/21 12/23/23 History traMADol HCL 50 mg PO BID PRN 07/16/21 12/23/23 History Montelukast [Singulair] 10 mg PO HS 12/23/23 12/23/23 History Tirzepatide [Mounjaro] 5 mg SQ [place] 12/23/23 12/23/23 History Allergies Allergy/AdvReac Type Severity Reaction Status Date / Time carvedilol [From Coreg] AdvReac Gets hot Verified 12/23/23 08:01 and body turns red Physical Exam Vitals: Vital Signs Temp Pulse Pulse Pulse Resp BP Pulse Ox 12/28/23 08:00 98.2 F 88 16 164/96 96 12/28/23 03:43 94 151/94 95 12/28/23 02:24 91 153/98 96 12/28/23 01:54 103 H 183/138 95 12/28/23 01:43 167/112 12/28/23 01:12 19 12/28/23 01:03 97.5 F L 86 19 156/98 95 12/27/23 21:15 88 12/27/23 21:07 72 12/27/23 20:00 87 11 L 12/27/23 19:45 98.1 F 90 134/86 96 12/27/23 16:24 88 12/27/23 16:11 92 12/27/23 14:24 98.1 F 84 16 136/89 95 12/27/23 09:09 84 12/27/23 08:57 84 Intake and Output 12/27/23 12/28/23 12/28/23 22:59 06:59 14:59 Intake Total 1050 110 Balance 1050 110 Intake: Intake, IV Titration 1050 Amount Sodium Chloride 0.9% 1, 1000 000 ml @ 100 mls/hr IV . Q10H [facility] Rx#:[id number] cefTRIAXone 2 gm In 50 Sodium Chloride 0.9% 50 ml @ 100 mls/hr IVPB Q24HR [facility] Rx#:[id number] Oral 110 Other: Voiding Method Toilet # Voids 4 Results 12/27/23 03:52 12/28/23 01:52 Cardiac Enzymes 12/27/23 Range/Units 03:52 AST 30 (13-35) U/L CBC 12/27/23 Range/Units 03:52 WBC 9.98 (4.50-10.00) X 10*3/uL RBC 4.11 (4.10-5.20) X 10*6/uL Hgb 11.8 L (12.0-15.0) g/dL Hct 36.1 L (37.2-46.3) % Plt Count 147 (140-440) X 10*3/uL Comprehensive Metabolic Panel 12/27/23 12/28/23 Range/Units 03:52 01:52 Sodium 140 139 (135-145) mmol/L Potassium 3.7 4.4 (3.5-5.5) mmol/L Chloride 110 H 110 H (96-109) mmol/L Carbon Dioxide 19.2 L 18 L (21.6-31.8) mmol/L BUN 9.0 10 (9.0-27.0) mg/dL Creatinine 0.9 0.82 (0.6-1.5) mg/dL Glucose 147 H 145 H (70-110) mg/dL Calcium 8.2 L 9.4 (8.7-10.3) mg/dL AST 30 (13-35) U/L ALT 28 (8-44) U/L Alkaline Phosphatase 66 (41-126) U/L Total Protein 5.2 L (6.2-8.2) g/dL Albumin 3.2 L (3.8-4.9) g/dL Current Medications Generic Name Dose Route Start Last Admin Trade Name Freq PRN Reason Stop Dose Admin Acetaminophen 650 mg 12/23/23 03:53 12/27/23 16:15 Acetaminophen Tab 325 Mg Tab PO 650 mg Q6HR PRN Administration Mild Pain or Fever > 100.5 Albuterol Sulfate 2.5 mg 12/23/23 14:38 12/27/23 21:06 Albuterol Nebulized 2.5 Mg/3 Ml INHALATION 2.5 mg RT-TID PRN Administration Shortness Of Breath Albuterol Sulfate 2 puff 12/23/23 14:38 12/28/23 01:18 Albuterol Hfa Inhaler INHALATION 2 puff RT-TID PRN Administration Shortness Of Breath Alprazolam 0.25 mg 12/28/23 01:48 12/28/23 01:52 Alprazolam 0.25 Mg Tab PO 0.25 mg BID PRN Administration Anxiety Aspirin 81 mg 12/24/23 09:00 12/28/23 08:02 Aspirin 81 Mg PO 81 mg DAILY [facility] Administration Atorvastatin Calcium 20 mg 12/23/23 21:00 12/27/23 20:12 Atorvastatin 20 Mg Tab PO 20 mg HS [place] Administration Cholestyramine Resin 4 gm 12/26/23 18:00 12/28/23 08:02 Cholestyramine (With Sugar) 4 Gm Packet PO Not Given BID@1000,1800 [place] Enoxaparin Sodium 40 mg 12/24/23 09:00 12/28/23 08:01 Enoxaparin 40 Mg/0.4 Ml Syringe SQ 40 mg DAILY [place] Administration Furosemide 40 mg 12/28/23 09:00 12/28/23 08:02 Furosemide 10 Mg/Ml 4 Ml Vial IV 40 mg Q12HR [place] Administration Ceftriaxone Sodium 2 gm/ 50 mls @ 100 mls/hr 12/24/23 09:00 12/28/23 08:02 Sodium Chloride IVPB 100 mls/hr Q24HR [facility] Administration Protocol Insulin Aspart 0 unit 12/23/23 17:30 12/28/23 06:38 Insulin Aspart (Novolog) 100 Unit/Ml Vial SQ 2 unit AC-TID [facility] Administration Protocol Ketorolac Tromethamine 15 mg 12/26/23 16:02 12/27/23 20:12 Ketorolac 15 Mg/Ml 1 Ml Vial IVP 12/31/23 16:02 15 mg Q6HR PRN Administration pain Levothyroxine Sodium 125 mcg 12/24/23 09:00 12/28/23 08:01 Levothyroxine 125 Mcg Tab PO 125 mcg DAILY [place] Administration Metoprolol Succinate 12.5 mg 12/25/23 01:45 12/27/23 20:14 Metoprolol Succinate (Er) 25 Mg Tab.Er.24h PO 12.5 mg HS [place] Administration Metronidazole 500 mg 12/24/23 11:15 12/28/23 08:01 Metronidazole 500 Mg Tab PO 500 mg TID [place] Administration Protocol Montelukast Sodium 10 mg 12/27/23 21:00 12/27/23 20:12 Montelukast 10 Mg Tab PO 10 mg HS [place] Administration Naloxone HCl 0.2 mg 12/23/23 03:53 Naloxone 0.4 Mg/Ml 1 Ml Vial IV Q2M PRN Opioid Reversal Nystatin 1 applic 12/23/23 21:00 12/28/23 08:07 Nystatin 100,000 Unit/Gm Powd 15 Gm TOPICAL Not Given BID [facility] Protocol Ondansetron HCl 4 mg 12/23/23 03:53 12/26/23 09:46 Ondansetron 4 Mg/2 Ml Vial IVP 4 mg Q8HR PRN Administration Nausea And Vomiting Pantoprazole Sodium 40 mg 12/23/23 21:00 12/28/23 08:01 Pantoprazole 40 Mg/10 Ml Vial IVP 40 mg BID [place] Administration Tramadol HCl 50 mg 12/23/23 14:38 12/24/23 20:23 Tramadol 50 Mg Tab PO 50 mg BID PRN Administration Pain Intake and Output 12/27/23 12/28/23 12/28/23 22:59 06:59 14:59 Intake Total 1050 110 Balance 1050 110 Intake: Intake, IV Titration 1050 Amount Sodium Chloride 0.9% 1, 1000 000 ml @ 100 mls/hr IV . Q10H [facility] Rx#:[id number] cefTRIAXone 2 gm In 50 Sodium Chloride 0.9% 50 ml @ 100 mls/hr IVPB Q24HR [facility] Rx#:[id number] Oral 110 Other: Voiding Method Toilet # Voids 4 12/27/23 03:52 12/28/23 01:52
--- NOTE | 2023-12-28 14:47 | P.PN ---
Subjective Progress Note Date: 12/28/23 Patient is a 63-year-old female came with complains of nausea vomiting diarrhea has been going on since yesterday patient is having significant diarrhea. Patient also complaining of some mild crampy abdominal pain bilateral lower quadrants patient denies any suprapubic pain patient denies any dysuria patient had fever here along with leukocytosis patient was presumed to have urinary tract infection because of mildly abnormal UTI and was given Rocephin and subsequently admitted. Patient any cough chest x-ray did not show any pneumonia. Patient feels slightly better but still nauseous. 12/24/2023 Patient is evaluated today on the medical floor, patient continues to report loose stools although does report improvement in abdominal pain. Patient had abdominal pelvis CT done which reveals concern for diverticulitis or focal colitis in the distal descending colon. There are multiple bilateral renal lesions most are stable in size and appearance from prior imaging these are noted since back in 2019. Patient is on IV ceftriaxone and oral flagyl. Urine culture does show gram negative bacilli however patient denies any urinary symptoms/dysuria. 12/25/2023 Patient is evaluated today in follow up sitting up in the chair. Reports worsening abdominal pain epigastric region and radiation to the back. Patient continues with episodes of loose stool. Febrile. 12/26/2023 Patient is evaluated today in follow-up has been continued overnight on IV ceftriaxone and oral Flagyl. Patient reports worsening epigastric discomfort at this time with tender to palpation. Patient does not oxygen having worsening diarrhea. Urine culture showing E. coli which is pansensitive at this time. Amylase and lipase are within normal limits. General surgery was consulted and following recommend to continue current antibiotics and symptomatic care. 12/27/2023 Patient is evaluated today in follow-up on the medical floor. Patient reports improvement in her diarrhea essentially negative since patient is and started on Questran. Patient currently reporting no fever chills overnight she is having some mild shortness of breath. Remains on IV ceftriaxone and IV metronidazole for positive UTI and concern for diverticulitis. Amylase and lipase are within normal limits. Patient is on room air. 12/28/2023 Is evaluated today in follow-up in the stepdown unit. Patient was transferred overnight secondary to worsening shortness of breath and concern for acute pulmonary edema. Patient was given a dose of IV Lasix in the evening 40 mg with improvement in her respiratory status patient was transferred to the cardiac unit for further monitoring. Patient has now been continued on IV Lasix 40 mg every 12 hours. Patient states that her ejection fraction in the past has been around 38%. Patient does follow with a adult education professional out of [facility]. Has been continued on antibiotics for diverticulitis and concern for UTI Review of Systems Constitutional: Denied any fatigue denied any fever. Cardio vascular: denied any chest pain, palpitations Gastrointestinal: denied any nausea, vomiting, diarrhea Pulmonary: Reports shortness of breath cough Neurologic denied any new focal deficits All inpatient medications were reviewed and appropriate changes in these medications as dictated in the interval history and assessment and plan. PHYSICAL EXAMINATION: GENERAL: The patient is alert and oriented x3, not in any acute distress. Obese HEENT: Pupils are round and equally reacting to light. EOMI. No scleral icterus. No conjunctival pallor. Normocephalic, atraumatic. No pharyngeal erythema. No thyromegaly. CARDIOVASCULAR: S1 and S2 present. No murmurs, rubs, or gallops. PULMONARY: Faint bibasilar crackles ABDOMEN: Soft, nontender, nondistended, normoactive bowel sounds. No palpable organomegaly. MUSCULOSKELETAL: No joint swelling or deformity. EXTREMITIES: No cyanosis, clubbing, or pedal edema. NEUROLOGICAL: Gross neurological examination did not reveal any focal deficits. SKIN: Some redness in the center of the skin folds but patient uses nystatin powder. Assessment and plan -Sepsis: due to diverticulitis/colitis patient is on IV ceftriaxone and oral flagyl and ID following. Symptoms improving. UTI less likely as cause for symptoms. Worsening epigastric pain concern for mild pancreatitis versus gastritis. Amylase lipase are within normal limits. Protonix has been increased to twice a day -Atelectasis noted on chest xray; patient has been ordered for incentive spirometer 10 x an hour while awake.- -Acute systolic heart failure pt states echocardiogram is 38% in the past started on IV lasix 40 mg every 12 hours. -COPD without any acute exacerbation -Type 2 diabetes mellitus -Type 2 diabetes mellitus -Gastroesophageal flux disease -Peptic ulcer disease with acute gastritis patient was started on Protonix -Hyperlipidemia -Hypertension patient is presently hypotensive -Hypothyroidism For above-mentioned chronic medical problems patient resumed appropriate home medications DVT prophylaxis: Lovenox GI prophylaxis Protonix Full Code Chest xray ordered Continue incentive spirometer 10 x an hour while awake. Repeat blood work. continue antibiotics. ID following. Continue IV lasix Q12 hours with strict intake and output monitoring. The impression and plan of care has been dictated by Jovita Davis, Nurse Practitioner as directed. Dr. Jermaine MD I have performed a history and physical examination and medical decision making of this patient, discussed the same with the dictator, and agree with the dictators assessment and plan as written, documented as a scribe. Based on total visit time, I have performed more than 50% of this visit. Objective - Vital Signs Vital signs: Vital Signs Temp 98.2 F 12/28/23 08:00 Pulse 88 12/28/23 08:00 Resp 16 12/28/23 08:00 BP 164/96 12/28/23 08:00 Pulse Ox 96 12/28/23 08:00 FiO2 Intake & Output 12/27/23 12/28/23 12/28/23 18:59 06:59 18:59 Intake Total 1050 110 Balance 1050 110 Intake: Intake, IV Titration 1050 Amount Sodium Chloride 0.9% 1, 1000 000 ml @ 100 mls/hr IV . Q10H [facility] Rx#:[id number] cefTRIAXone 2 gm In 50 Sodium Chloride 0.9% 50 ml @ 100 mls/hr IVPB Q24HR [facility] Rx#:[id number] Oral 110 Other: Voiding Method Toilet Toilet # Voids 4 - Labs CBC & Chem 7: 12/27/23 03:52 12/28/23 01:52 Labs: Abnormal Lab Results - Last 24 Hours (Table) 12/27/23 12/27/23 12/27/23 Range/Units 03:52 03:52 11:34 Hgb 11.8 L (12.0-15.0) g/dL Hct 36.1 L (37.2-46.3) % Immature Gran # 0.05 H (0.00-0.04) X 10*3/uL Monocytes # 1.06 H (0.20-1.00) X 10*3/uL Eosinophils # 0.36 H (0.04-0.35) X 10*3/uL D-Dimer (<0.60) mg/L FEU Chloride 110 H (96-109) mmol/L Carbon Dioxide 19.2 L (21.6-31.8) mmol/L BUN/Creatinine Ratio 10.00 L (12.00-20.00) Ratio Glucose 147 H (70-110) mg/dL POC Glucose (mg/dL) 141 H (70-110) mg/dL Calcium 8.2 L (8.7-10.3) mg/dL C-Reactive Protein 5.20 H (0.00-0.80) mg/dL Total Protein 5.2 L (6.2-8.2) g/dL Albumin 3.2 L (3.8-4.9) g/dL 12/27/23 12/27/23 12/28/23 Range/Units 16:32 21:21 01:46 Hgb (12.0-15.0) g/dL Hct (37.2-46.3) % Immature Gran # (0.00-0.04) X 10*3/uL Monocytes # (0.20-1.00) X 10*3/uL Eosinophils # (0.04-0.35) X 10*3/uL D-Dimer 1.62 H (<0.60) mg/L FEU Chloride (96-109) mmol/L Carbon Dioxide (21.6-31.8) mmol/L BUN/Creatinine Ratio (12.00-20.00) Ratio Glucose (70-110) mg/dL POC Glucose (mg/dL) 118 H 140 H (70-110) mg/dL Calcium (8.7-10.3) mg/dL C-Reactive Protein (0.00-0.80) mg/dL Total Protein (6.2-8.2) g/dL Albumin (3.8-4.9) g/dL 12/28/23 12/28/23 Range/Units 01:52 06:09 Hgb (12.0-15.0) g/dL Hct (37.2-46.3) % Immature Gran # (0.00-0.04) X 10*3/uL Monocytes # (0.20-1.00) X 10*3/uL Eosinophils # (0.04-0.35) X 10*3/uL D-Dimer (<0.60) mg/L FEU Chloride 110 H (96-109) mmol/L Carbon Dioxide 18 L (21.6-31.8) mmol/L BUN/Creatinine Ratio (12.00-20.00) Ratio Glucose 145 H (70-110) mg/dL POC Glucose (mg/dL) 154 H (70-110) mg/dL Calcium (8.7-10.3) mg/dL C-Reactive Protein (0.00-0.80) mg/dL Total Protein (6.2-8.2) g/dL Albumin (3.8-4.9) g/dL Assessment and Plan Time with Patient: Less than 30
[2023-12-28 16:24] LABS: Glucose,Whole Blood 138 mg/dL (70-110)
--- NOTE | 2023-12-28 17:23 | P.PN ---
Subjective Progress Note Date: 12/28/23 Principal diagnosis: Reason for follow-up is UTI/diverticulitis Patient is a 63-year-old female with a past medical history significant for diabetes mellitus hypertension hyperlipidemia osteoarthritis sleep apnea COPD heart failure and breast cancer patient presenting to the hospital concerning for nausea vomiting diarrhea also complaining of suprapubic pain, patient be diagnosed with a urinary tract infection and concern for possible intra-abdominal source with the CT suspicious for diverticulitis. On today's evaluation that is 12/28/2023,the patient denies any fever or any chills, patient did have worsening of her breathing last night for the patient be transferred to the cardiology unit has been started on IV Lasix and the patient has good urine output mention breathing has slightly improved patient denies having any chest pain or cough or abdominal pain has improved some nausea but no vomiting and no diarrhea. Patient creatinine 0.82 NT proBNP was 5120 Objective - Vital Signs Vital signs: Vital Signs Temp 98.2 F 12/28/23 11:09 Pulse 79 12/28/23 11:09 Resp 16 12/28/23 11:09 BP 115/61 12/28/23 11:09 Pulse Ox 97 12/28/23 11:09 FiO2 Intake & Output 12/27/23 12/28/23 12/28/23 18:59 06:59 18:59 Intake Total 1050 110 Output Total 1250 Balance 1050 -1140 Intake: Intake, IV Titration 1050 Amount Sodium Chloride 0.9% 1, 1000 000 ml @ 100 mls/hr IV . Q10H [facility] Rx#:[id number] cefTRIAXone 2 gm In 50 Sodium Chloride 0.9% 50 ml @ 100 mls/hr IVPB Q24HR [facility] Rx#:[id number] Oral 110 Output: Urine 1250 Other: Voiding Method Toilet Toilet Toilet # Voids 4 - Exam GENERAL DESCRIPTION: An elderly female up in the chair in no distress RESPIRATORY SYSTEM: Unlabored breathing , decreased breath sounds at bases HEART: S1 S2 regular rate and rhythm , ABDOMEN: Soft , no tenderness EXTREMITIES: No edema feet - Labs CBC & Chem 7: 12/27/23 03:52 12/28/23 01:52 Labs: Abnormal Lab Results - Last 24 Hours (Table) 12/27/23 12/27/23 12/28/23 Range/Units 16:32 21:21 01:46 D-Dimer 1.62 H (<0.60) mg/L FEU Chloride (98-107) mmol/L Carbon Dioxide (22-30) mmol/L Glucose (74-99) mg/dL POC Glucose (mg/dL) 118 H 140 H (70-110) mg/dL 12/28/23 12/28/23 Range/Units 01:52 06:09 D-Dimer (<0.60) mg/L FEU Chloride 110 H (98-107) mmol/L Carbon Dioxide 18 L (22-30) mmol/L Glucose 145 H (74-99) mg/dL POC Glucose (mg/dL) 154 H (70-110) mg/dL Assessment and Plan (1) Urinary tract infection Current Visit: Yes Status: Acute Code(s): N39.0 - URINARY TRACT INFECTION, SITE NOT SPECIFIED SNOMED Code(s): 90044405 (2) Sepsis Current Visit: No Status: Acute Code(s): A41.9 - SEPSIS, UNSPECIFIED ORGANISM SNOMED Code(s): 94899715 Plan: 1patient with sepsis in this patient with fever tachycardia elevated white count meeting criteria for SIRS/sepsis source likely UTI underlying GI source such as diverticulitis/colitis not entirely excluded 2-CT abdominal pelvis is suspicious for focal diverticulitis/colitis stool for C. difficile negative urine is growing E. coli that is a sensitive pathogen 3-patient did have worsening respiratory status likely related to fluid overload CHF being managed by admitting team, patient continue with the Rocephin and Flagyl finishing therapy while inpatient and monitor clinical course closely Dictation was produced using [employer] dictation software. please excuse any grammatical, word or spelling errors. Time with Patient: Less than 30
[2023-12-28 19:59] LABS: Glucose,Whole Blood 180 mg/dL (70-110)
[2023-12-29 06:13] LABS: Glucose,Whole Blood 130 mg/dL (70-110)
[2023-12-29 07:36] LABS: African American GFR (CKD) >90 (>60 ml/min/1.73 sqM); Anion Gap 7 mmol/L; Blood Urea Nitrogen 10 mg/dL (7-17); Calcium 8.8 mg/dL (8.4-10.2); Carbon Dioxide 26 mmol/L (22-30); Chloride 106 mmol/L (98-107); Glucose 128 mg/dL (74-99); Non-African American GFR(CKD) >90 (>60 ml/min/1.73 sqM); Potassium 3.7 mmol/L (3.5-5.1); Sodium 139 mmol/L (137-145)
[2023-12-29 11:32] LABS: Glucose,Whole Blood 143 mg/dL (70-110)
--- NOTE | 2023-12-29 14:14 | P.PN ---
Subjective Progress Note Date: 12/29/23 Consult reason: congestive heart failure History of present illness: This is a 63-year-old woman initially presented to the emergency center on 12/21 with nausea, vomiting, diarrhea, admitted to the hospital and treated for sepsis secondary to diverticulitis/colitis on IV antibiotics, possible pancreatitis and acute gastritis. Patient also has past medical history of COPD, diabetes mellitus type 2, gastroesophageal reflux disease, hypertension, hyperlipidemia, hypothyroidism. We have been asked to evaluate the patient for heart failure. Patient states she developed shortness of breath this morning was given 1 dose of IV Lasix 40 mg followed by 40 mg at every 12 hours. She states she has urinated quite a bit. She states that she was very upset this morning and contacted her PCP in the [place] area and wanted to be transferred because she had too much fluid in her body. She states she has urinated quite a bit since she received the IV Lasix and at this time, has received 2 doses. IV fluids were discontinued. EKG: Sinus rhythm with left bundle branch block Chest x-ray: Moderate vascular congestion. Bibasilar opacities CTA of the chest for elevated D-dimer revealed no pulmonary embolism. Moderate bilateral pleural effusions with compressive atelectasis. Mild pulmonary edema. Laboratory studies: Sodium 139, potassium 4.4, creatinine 0.82. proBNP 5120. Magnesium 1.8. Home cardiac medications: Aspirin 81 mg daily, atorvastatin 20 mg at bedtime, lisinopril 2.5 mg at bedtime, Toprol-XL 12.5 mg at bedtime, also on Synthroid and Mounjaro. 12/28 Patient is seen today in follow-up. She states she is now able to lay flat in bed although she still continues to have some fluid and lower extremity edema. She is currently on IV Lasix 40 mg every 12 hours which we will transition to daily starting tomorrow. Plan will be for her to continue Lasix 40 mg daily at home until she follows up with her primary mortgage loan underwriter on Thursday. Blood pressure 125/78, heart rate 75, pulse ox 96% on room air. Physical examination: Gen: This is a obese 63-year-old female in no acute distress VS: reviewed HEENT: Head is atraumatic, normocephalic. Pupils equal, round. Sclerae is anicteric. NECK: Supple. No JVD. LUNGS: Mild crackles in the bases bilaterally. No intercostal retractions. HEART: Regular rate and rhythm. No murmur. ABDOMEN: Soft No tenderness. EXTREMITIES: 1+ pedal edema. No calf tenderness. NEUROLOGICAL: Patient is awake, alert and oriented x3. Assessment: Iatrogenic fluid overload Sepsis secondary to diverticulitis/colitis Possible pancreatitis, gastritis COPD Diabetes mellitus type 2 Gastroesophageal reflux disease Hypertension Hyperlipidemia Hypothyroidism Plan: Continue patient's home cardiac medications Continue IV Lasix 40 mg every 12 hours and transition to once daily in the morn ing At the time of discharge, patient to be on oral Lasix 40 mg daily until follow- up with her mortgage loan underwriter Patient is cleared for discharge from cardiology. Nurse practitioner note has been reviewed, I agree with documented findings and plan of care. Patient was seen and examined. Objective - Vital Signs Vital signs: Vital Signs Temp 98.0 F 12/29/23 08:01 Pulse 79 12/29/23 08:05 Resp 18 12/29/23 08:05 BP 145/90 12/29/23 08:01 Pulse Ox 99 12/29/23 08:57 FiO2 Intake & Output 12/28/23 12/29/23 12/29/23 18:59 06:59 18:59 Intake Total 220 118 Output Total 1950 1050 800 Balance -1730 -1050 -682 Weight 96 kg Intake: Oral 220 118 Output: Urine 1950 1050 800 Other: Voiding Method Toilet Toilet Toilet - Labs CBC & Chem 7: 12/27/23 03:52 12/29/23 06:47 Labs: Abnormal Lab Results - Last 24 Hours (Table) 12/28/23 12/28/23 12/29/23 Range/Units 16:21 19:57 06:11 Glucose (74-99) mg/dL POC Glucose (mg/dL) 138 H 180 H 130 H (70-110) mg/dL 12/29/23 Range/Units 06:47 Glucose 128 H (74-99) mg/dL POC Glucose (mg/dL) (70-110) mg/dL Microbiology - Last 24 Hours (Table) 12/23/23 03:07 Blood Culture - Final Blood 12/23/23 03:07 Blood Culture - Final Blood
--- NOTE | 2023-12-29 15:28 | P.PN ---
Subjective Progress Note Date: 12/29/23 Principal diagnosis: Reason for follow-up is UTI/diverticulitis Patient is a 63-year-old female with a past medical history significant for diabetes mellitus hypertension hyperlipidemia osteoarthritis sleep apnea COPD heart failure and breast cancer patient presenting to the hospital concerning for nausea vomiting diarrhea also complaining of suprapubic pain, patient be diagnosed with a urinary tract infection and concern for possible intra-abdominal source with the CT suspicious for diverticulitis. On today's evaluation that is 12/29/2023,the patient remains to be afebrile, patient is on room air not requiring supplemental oxygen and mention improvement in her y shortness of breath no chest pain or cough.Patient denies having any nausea or vomiting, no abdominal pain and no diarrhea has been reported. Feeling better today. Patient did have a creatinine 0.71 blood culture has been negative Objective - Vital Signs Vital signs: Vital Signs Temp 98.0 F 12/29/23 08:01 Pulse 75 12/29/23 14:23 Resp 18 12/29/23 14:23 BP 125/78 12/29/23 11:31 Pulse Ox 96 12/29/23 11:31 FiO2 Intake & Output 12/28/23 12/29/23 12/29/23 18:59 06:59 18:59 Intake Total 220 340 Output Total 1950 1050 800 Balance -1730 -1050 -460 Weight 96 kg Intake: Oral 220 340 Output: Urine 1950 1050 800 Other: Voiding Method Toilet Toilet Toilet - Exam GENERAL DESCRIPTION: An elderly female up in the chair in no distress RESPIRATORY SYSTEM: Unlabored breathing , decreased breath sounds at bases HEART: S1 S2 regular rate and rhythm , ABDOMEN: Soft , no tenderness EXTREMITIES: No edema feet - Labs CBC & Chem 7: 12/27/23 03:52 12/29/23 06:47 Labs: Abnormal Lab Results - Last 24 Hours (Table) 12/28/23 12/28/23 12/29/23 Range/Units 16:21 19:57 06:11 Glucose (74-99) mg/dL POC Glucose (mg/dL) 138 H 180 H 130 H (70-110) mg/dL 12/29/23 12/29/23 Range/Units 06:47 11:30 Glucose 128 H (74-99) mg/dL POC Glucose (mg/dL) 143 H (70-110) mg/dL Microbiology - Last 24 Hours (Table) 12/23/23 03:07 Blood Culture - Final Blood 12/23/23 03:07 Blood Culture - Final Blood Assessment and Plan (1) Urinary tract infection Current Visit: Yes Status: Acute Code(s): N39.0 - URINARY TRACT INFECTION, SITE NOT SPECIFIED SNOMED Code(s): 68739403 (2) Sepsis Current Visit: No Status: Acute Code(s): A41.9 - SEPSIS, UNSPECIFIED ORGANISM SNOMED Code(s): 59239756 Plan: 1patient with sepsis in this patient with fever tachycardia elevated white count meeting criteria for SIRS/sepsis source likely UTI underlying GI source such as diverticulitis/colitis not entirely excluded 2-CT abdominal pelvis is suspicious for focal diverticulitis/colitis stool for C. difficile negative urine is growing E. coli that is a sensitive pathogen 3-patient did have improvement in her respiratory status and has been off the oxygen 4patient continue with the Rocephin and Flagyl finishing therapy while inpatient and finishing therapy with oral antibiotics Dictation was produced using [employer] dictation software. please excuse any grammatical, word or spelling errors. Time with Patient: Less than 30
[2023-12-29 16:51] LABS: Glucose,Whole Blood 128 mg/dL (70-110)
[2023-12-29 20:09] LABS: Glucose,Whole Blood 167 mg/dL (70-110)
--- NOTE | 2023-12-29 20:55 | P.PN ---
Subjective Progress Note Date: 12/29/23 Patient is a 63-year-old female came with complains of nausea vomiting diarrhea has been going on since yesterday patient is having significant diarrhea. Patient also complaining of some mild crampy abdominal pain bilateral lower quadrants patient denies any suprapubic pain patient denies any dysuria patient had fever here along with leukocytosis patient was presumed to have urinary tract infection because of mildly abnormal UTI and was given Rocephin and subsequently admitted. Patient any cough chest x-ray did not show any pneumonia. Patient feels slightly better but still nauseous. 12/24/2023 Patient is evaluated today on the medical floor, patient continues to report loose stools although does report improvement in abdominal pain. Patient had abdominal pelvis CT done which reveals concern for diverticulitis or focal colitis in the distal descending colon. There are multiple bilateral renal lesions most are stable in size and appearance from prior imaging these are noted since back in 2019. Patient is on IV ceftriaxone and oral flagyl. Urine culture does show gram negative bacilli however patient denies any urinary symptoms/dysuria. 12/25/2023 Patient is evaluated today in follow up sitting up in the chair. Reports worsening abdominal pain epigastric region and radiation to the back. Patient continues with episodes of loose stool. Febrile. 12/26/2023 Patient is evaluated today in follow-up has been continued overnight on IV ceftriaxone and oral Flagyl. Patient reports worsening epigastric discomfort at this time with tender to palpation. Patient does not oxygen having worsening diarrhea. Urine culture showing E. coli which is pansensitive at this time. Amylase and lipase are within normal limits. General surgery was consulted and following recommend to continue current antibiotics and symptomatic care. 12/27/2023 Patient is evaluated today in follow-up on the medical floor. Patient reports improvement in her diarrhea essentially negative since patient is and started on Questran. Patient currently reporting no fever chills overnight she is having some mild shortness of breath. Remains on IV ceftriaxone and IV metronidazole for positive UTI and concern for diverticulitis. Amylase and lipase are within normal limits. Patient is on room air. 12/28/2023 Is evaluated today in follow-up in the stepdown unit. Patient was transferred overnight secondary to worsening shortness of breath and concern for acute pulmonary edema. Patient was given a dose of IV Lasix in the evening 40 mg with improvement in her respiratory status patient was transferred to the cardiac unit for further monitoring. Patient has now been continued on IV Lasix 40 mg every 12 hours. Patient states that her ejection fraction in the past has been around 38%. Patient does follow with a coverer out of [facility]. Has been continued on antibiotics for diverticulitis and concern for UTI 12/29/2023 Patient is evaluated today in follow-up in the cardiac stepdown unit. Patient reports improvement in her shortness of breath today. She has continued with mild lower extremity edema however her hands and arms are less edematous. Patient is now on room air with oxygen saturations of 99%. She does continue on IV Lasix 40 mg twice a day. She has adequate urinary output from this. Blood work today reveals a BUN of 10 creatinine of 0.71 sodium level of 139. Blood pressure about 155/64. Review of Systems Constitutional: Denied any fatigue denied any fever. Cardio vascular: denied any chest pain, palpitations Gastrointestinal: denied any nausea, vomiting, diarrhea Pulmonary: Reports shortness of breath improving, no cough Neurologic denied any new focal deficits All inpatient medications were reviewed and appropriate changes in these medications as dictated in the interval history and assessment and plan. PHYSICAL EXAMINATION: GENERAL: The patient is alert and oriented x3, not in any acute distress. Obese HEENT: Pupils are round and equally reacting to light. EOMI. No scleral icterus. No conjunctival pallor. Normocephalic, atraumatic. No pharyngeal erythema. No thyromegaly. CARDIOVASCULAR: S1 and S2 present. No murmurs, rubs, or gallops. PULMONARY: Faint bibasilar crackles ABDOMEN: Soft, nontender, nondistended, normoactive bowel sounds. No palpable organomegaly. MUSCULOSKELETAL: No joint swelling or deformity. EXTREMITIES: No cyanosis, clubbing, or pedal edema. NEUROLOGICAL: Gross neurological examination did not reveal any focal deficits. SKIN: Some redness in the center of the skin folds but patient uses nystatin powder. Assessment and plan -Sepsis: due to diverticulitis/colitis patient is on IV ceftriaxone and oral flagyl and ID following. Symptoms improving. UTI less likely as cause for symptoms. Worsening epigastric pain concern for mild pancreatitis versus gastritis. Amylase lipase are within normal limits. Protonix has been increased to twice a day -Atelectasis noted on chest xray; patient has been ordered for incentive spirometer 10 x an hour while awake.- -Acute systolic heart failure pt states echocardiogram is 38% in the past started on IV lasix 40 mg every 12 hours. -COPD without any acute exacerbation -Type 2 diabetes mellitus -Type 2 diabetes mellitus -Gastroesophageal flux disease -Peptic ulcer disease with acute gastritis patient was started on Protonix -Hyperlipidemia -Hypertension patient is presently hypotensive -Hypothyroidism For above-mentioned chronic medical problems patient resumed appropriate home medications DVT prophylaxis: Lovenox GI prophylaxis Protonix Full Code Chest xray ordered Continue incentive spirometer 10 x an hour while awake. Repeat blood work. jonathan nue antibiotics. ID following. Continue IV lasix Q12 hours with strict intake and output monitoring. The impression and plan of care has been dictated by Jovita Davis, Nurse Practitioner as directed. Dr. Jermaine MD I have performed a history and physical examination and medical decision making of this patient, discussed the same with the dictator, and agree with the dictators assessment and plan as written, documented as a scribe. Based on total visit time, I have performed more than 50% of this visit. Objective - Vital Signs Vital signs: Vital Signs Temp 98.2 F 12/29/23 19:59 Pulse 85 12/29/23 19:59 Resp 16 12/29/23 19:59 BP 155/64 12/29/23 19:59 Pulse Ox 97 12/29/23 19:59 FiO2 Intake & Output 12/29/23 12/29/23 12/30/23 06:59 18:59 06:59 Intake Total 458 Output Total 1050 1200 Balance -1050 -742 Weight 96 kg Intake: Oral 458 Output: Urine 1050 1200 Other: Voiding Method Toilet Toilet - Labs CBC & Chem 7: 12/27/23 03:52 12/29/23 06:47 Labs: Abnormal Lab Results - Last 24 Hours (Table) 12/29/23 12/29/23 12/29/23 Range/Units 06:11 06:47 11:30 Glucose 128 H (74-99) mg/dL POC Glucose (mg/dL) 130 H 143 H (70-110) mg/dL 12/29/23 12/29/23 Range/Units 16:33 20:04 Glucose (74-99) mg/dL POC Glucose (mg/dL) 128 H 167 H (70-110) mg/dL Assessment and Plan Time with Patient: Less than 30
[2023-12-30 06:06] LABS: Glucose,Whole Blood 150 mg/dL (70-110)
[2023-12-30] MEDS: FUROSEMIDE 40 MG TAB PO SCH (08:48)
[2023-12-30] MEDS: FUROSEMIDE 10 MG/ML 4 ML VIAL IV SCH (09:04)
--- NOTE | 2023-12-30 09:25 | P.PN ---
Subjective Progress Note Date: 12/30/23 Consult reason: congestive heart failure History of present illness: This is a 63-year-old woman initially presented to the emergency center on 12/21 with nausea, vomiting, diarrhea, admitted to the hospital and treated for sepsis secondary to diverticulitis/colitis on IV antibiotics, possible pancreatitis and acute gastritis. Patient also has past medical history of COPD, diabetes mellitus type 2, gastroesophageal reflux disease, hypertension, hyperlipidemia, hypothyroidism. We have been asked to evaluate the patient for heart failure. Patient states she developed shortness of breath this morning was given 1 dose of IV Lasix 40 mg followed by 40 mg at every 12 hours. She states she has urinated quite a bit. She states that she was very upset this morning and contacted her PCP in the [place] area and wanted to be transferred because she had too much fluid in her body. She states she has urinated quite a bit since she received the IV Lasix and at this time, has received 2 doses. IV fluids were discontinued. EKG: Sinus rhythm with left bundle branch block Chest x-ray: Moderate vascular congestion. Bibasilar opacities CTA of the chest for elevated D-dimer revealed no pulmonary embolism. Moderate bilateral pleural effusions with compressive atelectasis. Mild pulmonary edema. Laboratory studies: Sodium 139, potassium 4.4, creatinine 0.82. proBNP 5120. Magnesium 1.8. Home cardiac medications: Aspirin 81 mg daily, atorvastatin 20 mg at bedtime, lisinopril 2.5 mg at bedtime, Toprol-XL 12.5 mg at bedtime, also on Synthroid and Mounjaro. 12/28 Patient is seen today in follow-up. She states she is now able to lay flat in bed although she still continues to have some fluid and lower extremity edema. She is currently on IV Lasix 40 mg every 12 hours which we will transition to daily starting tomorrow. Plan will be for her to continue Lasix 40 mg daily at home until she follows up with her primary mica builder on Thursday. Blood pressure 125/78, heart rate 75, pulse ox 96% on room air. 12/29 Patient states that she slept well last night, her breathing is much improved and she has had improvement of her lower extremity edema although she does have some remaining edema. She is utilizing incentive spirometry at 1500 mL. We have transitioned her to Lasix IV once daily and plan for oral starting tomorrow. Blood pressure 132/81, heart rate 84, pulse ox 99% on room air. Physical examination: Gen: This is a obese 63-year-old female in no acute distress VS: reviewed HEENT: Head is atraumatic, normocephalic. Pupils equal, round. Sclerae is anicteric. NECK: Supple. No JVD. LUNGS: Mild crackles in the bases bilaterally. No intercostal retractions. HEART: Regular rate and rhythm. No murmur. ABDOMEN: Soft No tenderness. EXTREMITIES: 1+ pedal edema. No calf tenderness. NEUROLOGICAL: Patient is awake, alert and oriented x3. Assessment: Iatrogenic fluid overload Sepsis secondary to diverticulitis/colitis Possible pancreatitis, gastritis COPD Diabetes mellitus type 2 Gastroesophageal reflux disease Hypertension Hyperlipidemia Hypothyroidism Plan: Continue patient's home cardiac medications Continue IV Lasix 40 mg once daily today and transition to Lasix 40 mg oral daily tomorrow At the time of discharge, patient to be on oral Lasix 40 mg daily until follow- up with her mica builder Patient is cleared for discharge from cardiology. Nurse practitioner note has been reviewed, I agree with documented findings and plan of care. Patient was seen and examined. Objective - Vital Signs Vital signs: Vital Signs Temp 98.4 F 12/30/23 04:00 Pulse 84 12/30/23 04:00 Resp 16 12/30/23 04:00 BP 132/81 12/30/23 04:00 Pulse Ox 99 12/30/23 04:00 FiO2 Intake & Output 12/29/23 12/30/23 12/30/23 18:59 06:59 18:59 Intake Total 458 540 Output Total 1200 950 Balance -742 -410 Weight 97.1 kg Intake: Oral 458 540 Output: Urine 1200 950 Other: Voiding Method Toilet Toilet - Labs CBC & Chem 7: 12/27/23 03:52 12/29/23 06:47 Labs: Abnormal Lab Results - Last 24 Hours (Table) 12/29/23 12/29/23 12/29/23 Range/Units 11:30 16:33 20:04 POC Glucose (mg/dL) 143 H 128 H 167 H (70-110) mg/dL 12/30/23 Range/Units 06:01 POC Glucose (mg/dL) 150 H (70-110) mg/dL
[2023-12-30 09:49] VITALS: BMI 36.7
[2023-12-30 11:41] LABS: Glucose,Whole Blood 155 mg/dL (70-110)
--- NOTE | 2023-12-30 11:59 | P.PN ---
Subjective Progress Note Date: 12/30/23 Principal diagnosis: Reason for follow-up is UTI/diverticulitis Patient is a 63-year-old female with a past medical history significant for diabetes mellitus hypertension hyperlipidemia osteoarthritis sleep apnea COPD heart failure and breast cancer patient presenting to the hospital concerning for nausea vomiting diarrhea also complaining of suprapubic pain, patient be diagnosed with a urinary tract infection and concern for possible intra-abdominal source with the CT suspicious for diverticulitis. On today's evaluation that is 12/30/2023, the patient continues to be afebrile, the patient is on room air and breathing comfortably, the Pt denies having any chest pain or cough, the patient denies having any abdominal pain no vomiting or any diarrhea mention overall feeling better. No new lab has been obtained today Objective - Vital Signs Vital signs: Vital Signs Temp 98.1 F 12/30/23 09:00 Pulse 74 12/30/23 09:00 Resp 18 12/30/23 09:00 BP 138/80 12/30/23 09:00 Pulse Ox 97 12/30/23 09:00 FiO2 Intake & Output 12/29/23 12/30/23 12/30/23 18:59 06:59 18:59 Intake Total 458 540 118 Output Total 4426 547 7232 Balance -521 -560 -2331 Weight 97.1 kg 97.1 kg Intake: Oral 458 540 118 Output: Urine 1667 994 7940 Other: Voiding Method Toilet Toilet Toilet - Exam GENERAL DESCRIPTION: An elderly female up in the chair in no distress RESPIRATORY SYSTEM: Unlabored breathing , decreased breath sounds at bases HEART: S1 S2 regular rate and rhythm , ABDOMEN: Soft , no tenderness EXTREMITIES: No edema feet - Labs CBC & Chem 7: 12/27/23 03:52 12/29/23 06:47 Labs: Abnormal Lab Results - Last 24 Hours (Table) 12/29/23 12/29/23 12/30/23 Range/Units 16:33 20:04 06:01 POC Glucose (mg/dL) 128 H 167 H 150 H (70-110) mg/dL 12/30/23 Range/Units 11:39 POC Glucose (mg/dL) 155 H (70-110) mg/dL Assessment and Plan (1) Urinary tract infection Current Visit: Yes Status: Acute Code(s): N39.0 - URINARY TRACT INFECTION, SITE NOT SPECIFIED SNOMED Code(s): 97122949 (2) Sepsis Current Visit: No Status: Acute Code(s): A41.9 - SEPSIS, UNSPECIFIED ORGANISM SNOMED Code(s): 35117625 Plan: 1patient with sepsis in this patient with fever tachycardia elevated white count meeting criteria for SIRS/sepsis source likely UTI underlying GI source such as diverticulitis/colitis not entirely excluded 2-CT abdominal pelvis is suspicious for focal diverticulitis/colitis stool for C. difficile negative urine is growing E. coli that is a sensitive pathogen 3-patient did have improvement in her respiratory status and has been off the oxygen 4patient also have improvement as far as UTI and colitis is concerned, continue with the Rocephin and Flagyl finishing therapy while inpatient and finishing therapy with oral antibiotics Question concern answered Dictation was produced using [employer] dictation software. please excuse any grammatical, word or spelling errors. Time with Patient: Less than 30
--- NOTE | 2023-12-30 15:12 | P.PN ---
Subjective Progress Note Date: 12/30/23 Patient is a 63-year-old female came with complains of nausea vomiting diarrhea has been going on since yesterday patient is having significant diarrhea. Patient also complaining of some mild crampy abdominal pain bilateral lower quadrants patient denies any suprapubic pain patient denies any dysuria patient had fever here along with leukocytosis patient was presumed to have urinary tract infection because of mildly abnormal UTI and was given Rocephin and subsequently admitted. Patient any cough chest x-ray did not show any pneumonia. Patient feels slightly better but still nauseous. 12/24/2023 Patient is evaluated today on the medical floor, patient continues to report loose stools although does report improvement in abdominal pain. Patient had abdominal pelvis CT done which reveals concern for diverticulitis or focal colitis in the distal descending colon. There are multiple bilateral renal lesions most are stable in size and appearance from prior imaging these are noted since back in 2019. Patient is on IV ceftriaxone and oral flagyl. Urine culture does show gram negative bacilli however patient denies any urinary symptoms/dysuria. 12/25/2023 Patient is evaluated today in follow up sitting up in the chair. Reports worsening abdominal pain epigastric region and radiation to the back. Patient continues with episodes of loose stool. Febrile. 12/26/2023 Patient is evaluated today in follow-up has been continued overnight on IV ceftriaxone and oral Flagyl. Patient reports worsening epigastric discomfort at this time with tender to palpation. Patient does not oxygen having worsening diarrhea. Urine culture showing E. coli which is pansensitive at this time. Amylase and lipase are within normal limits. General surgery was consulted and following recommend to continue current antibiotics and symptomatic care. 12/27/2023 Patient is evaluated today in follow-up on the medical floor. Patient reports improvement in her diarrhea essentially negative since patient is and started on Questran. Patient currently reporting no fever chills overnight she is having some mild shortness of breath. Remains on IV ceftriaxone and IV metronidazole for positive UTI and concern for diverticulitis. Amylase and lipase are within normal limits. Patient is on room air. 12/28/2023 Is evaluated today in follow-up in the stepdown unit. Patient was transferred overnight secondary to worsening shortness of breath and concern for acute pulmonary edema. Patient was given a dose of IV Lasix in the evening 40 mg with improvement in her respiratory status patient was transferred to the cardiac unit for further monitoring. Patient has now been continued on IV Lasix 40 mg every 12 hours. Patient states that her ejection fraction in the past has been around 38%. Patient does follow with a chemical dependency professional out of [facility]. Has been continued on antibiotics for diverticulitis and concern for UTI 12/29/2023 Patient is evaluated today in follow-up in the cardiac stepdown unit. Patient reports improvement in her shortness of breath today. She has continued with mild lower extremity edema however her hands and arms are less edematous. Patient is now on room air with oxygen saturations of 99%. She does continue on IV Lasix 40 mg twice a day. She has adequate urinary output from this. Blood work today reveals a BUN of 10 creatinine of 0.71 sodium level of 139. Blood pressure about 155/64. 12/30/2023 Patient is evaluated today in follow-up in the cardiac stepdown unit. Patient does continue to report improvement in her edema however today she reports wor sening shortness of breath than yesterday. Patient remains on room with oxygenation duration of 96%. Her lungs are clear to auscultation. She remains on IV ceftriaxone. And oral Flagyl. Review of Systems Constitutional: Denied any fatigue denied any fever. Cardio vascular: denied any chest pain, palpitations Gastrointestinal: denied any nausea, vomiting, diarrhea Pulmonary: Reports shortness of breath improving, no cough Neurologic denied any new focal deficits All inpatient medications were reviewed and appropriate changes in these medications as dictated in the interval history and assessment and plan. PHYSICAL EXAMINATION: GENERAL: The patient is alert and oriented x3, not in any acute distress. Obese HEENT: Pupils are round and equally reacting to light. EOMI. No scleral icterus. No conjunctival pallor. Normocephalic, atraumatic. No pharyngeal erythema. No thyromegaly. CARDIOVASCULAR: S1 and S2 present. No murmurs, rubs, or gallops. PULMONARY: Faint bibasilar crackles ABDOMEN: Soft, nontender, nondistended, normoactive bowel sounds. No palpable organomegaly. MUSCULOSKELETAL: No joint swelling or deformity. EXTREMITIES: No cyanosis, clubbing, or pedal edema. NEUROLOGICAL: Gross neurological examination did not reveal any focal deficits. SKIN: Some redness in the center of the skin folds but patient uses nystatin powder. Assessment and plan -Sepsis: due to diverticulitis/colitis patient is on IV ceftriaxone and oral flagyl and ID following. Symptoms improving. UTI less likely as cause for symptoms. Worsening epigastric pain concern for mild pancreatitis versus gastritis. Amylase lipase are within normal limits. Protonix has been increased to twice a day -Atelectasis noted on chest xray; patient has been ordered for incentive spirometer 10 x an hour while awake.- -Acute systolic heart failure pt states echocardiogram is 38% in the past started on IV lasix 40 mg every 12 hours. -COPD without any acute exacerbation -Type 2 diabetes mellitus -Type 2 diabetes mellitus -Gastroesophageal flux disease -Peptic ulcer disease with acute gastritis patient was started on Protonix -Hyperlipidemia -Hypertension patient is presently hypotensive -Hypothyroidism For above-mentioned chronic medical problems patient resumed appropriate home medications DVT prophylaxis: Lovenox GI prophylaxis Protonix Full Code Chest xray ordered Continue incentive spirometer 10 x an hour while awake. Repeat blood work. continue antibiotics. ID following. Continue IV lasix Q12 hours with strict intake and output monitoring. The impression and plan of care has been dictated by Jovita Davis, Nurse Practitioner as directed. Dr. Jermaine MD I have performed a history and physical examination and medical decision making of this patient, discussed the same with the dictator, and agree with the dictators assessment and plan as written, documented as a scribe. Based on total visit time, I have performed more than 50% of this visit. Objective - Vital Signs Vital signs: Vital Signs Temp 98.4 F 12/30/23 04:00 Pulse 84 12/30/23 04:00 Resp 16 12/30/23 04:00 BP 132/81 12/30/23 04:00 Pulse Ox 99 12/30/23 04:00 FiO2 Intake & Output 12/29/23 12/30/23 12/30/23 18:59 06:59 18:59 Intake Total 458 540 118 Output Total 1200 950 Balance -742 -410 118 Weight 97.1 kg Intake: Oral 458 540 118 Output: Urine 1200 950 Other: Voiding Method Toilet Toilet - Labs CBC & Chem 7: 12/27/23 03:52 12/29/23 06:47 Labs: Abnormal Lab Results - Last 24 Hours (Table) 12/29/23 12/29/23 12/29/23 Range/Units 11:30 16:33 20:04 POC Glucose (mg/dL) 143 H 128 H 167 H (70-110) mg/dL 12/30/23 Range/Units 06:01 POC Glucose (mg/dL) 150 H (70-110) mg/dL Assessment and Plan Time with Patient: Less than 30
[2023-12-30] MEDS: FUROSEMIDE 10 MG/ML 4 ML VIAL IV STA (15:36)
[2023-12-30 16:22] LABS: Glucose,Whole Blood 144 mg/dL (70-110)
[2023-12-30 19:59] LABS: Glucose,Whole Blood 250 mg/dL (70-110)
[2023-12-31 06:12] LABS: Glucose,Whole Blood 181 mg/dL (70-110)
[2023-12-31] MEDS: METOPROLOL TARTRATE 25 MG TAB PO STA (07:37)
[2023-12-31] MEDS: MAGNESIUM SULFATE-WATER PMX 4 GM in WATER FOR INJECTION 1 100ML.BAG IVPB ONE (08:01)
[2023-12-31] MEDS: APIXABAN 5 MG TAB PO SCH (08:01)
[2023-12-31 08:14] LABS: African American GFR (CKD) 83 (>60 ml/min/1.73 sqM); Anion Gap 9 mmol/L; Blood Urea Nitrogen 21 mg/dL (7-17); Calcium 9.9 mg/dL (8.4-10.2); Carbon Dioxide 28 mmol/L (22-30); Chloride 97 mmol/L (98-107); Glucose 182 mg/dL (74-99); Non-African American GFR(CKD) 72 (>60 ml/min/1.73 sqM); Potassium 3.8 mmol/L (3.5-5.1); Sodium 134 mmol/L (137-145)
--- NOTE | 2023-12-31 09:00 | P.PN ---
Subjective Progress Note Date: 12/31/23 Consult reason: congestive heart failure History of present illness: This is a 63-year-old woman initially presented to the emergency center on 12/21 with nausea, vomiting, diarrhea, admitted to the hospital and treated for sepsis secondary to diverticulitis/colitis on IV antibiotics, possible pancreatitis and acute gastritis. Patient also has past medical history of COPD, diabetes mellitus type 2, gastroesophageal reflux disease, hypertension, hyperlipidemia, hypothyroidism. We have been asked to evaluate the patient for heart failure. Patient states she developed shortness of breath this morning was given 1 dose of IV Lasix 40 mg followed by 40 mg at every 12 hours. She states she has urinated quite a bit. She states that she was very upset this morning and contacted her PCP in the [place] area and wanted to be transferred because she had too much fluid in her body. She states she has urinated quite a bit since she received the IV Lasix and at this time, has received 2 doses. IV fluids were discontinued. EKG: Sinus rhythm with left bundle branch block Chest x-ray: Moderate vascular congestion. Bibasilar opacities CTA of the chest for elevated D-dimer revealed no pulmonary embolism. Moderate bilateral pleural effusions with compressive atelectasis. Mild pulmonary edema. Laboratory studies: Sodium 139, potassium 4.4, creatinine 0.82. proBNP 5120. Magnesium 1.8. Home cardiac medications: Aspirin 81 mg daily, atorvastatin 20 mg at bedtime, lisinopril 2.5 mg at bedtime, Toprol-XL 12.5 mg at bedtime, also on Synthroid and Mounjaro. 12/28 Patient is seen today in follow-up. She states she is now able to lay flat in bed although she still continues to have some fluid and lower extremity edema. She is currently on IV Lasix 40 mg every 12 hours which we will transition to daily starting tomorrow. Plan will be for her to continue Lasix 40 mg daily at home until she follows up with her primary director of preclinical research on Thursday. Blood pressure 125/78, heart rate 75, pulse ox 96% on room air. 12/29 Patient states that she slept well last night, her breathing is much improved and she has had improvement of her lower extremity edema although she does have some remaining edema. She is utilizing incentive spirometry at 1500 mL. We have transitioned her to Lasix IV once daily and plan for oral starting tomorrow. Blood pressure 132/81, heart rate 84, pulse ox 99% on room air. 12/30 Patient went into A-fib with RVR this morning up to 160 bpm. She did receive Toprol XL 12.5 mg at bedtime. Onset was around 620 this morning. She is asymptomatic does not feel any palpitations. She does state that sometimes at nighttime she feels sweaty and hot like she was going through hot flashes. Patient may have had previous occurrences of atrial fibrillation. We will plan to start her on Eliquis and give her an infusion of magnesium for grams over 1 hour for heart rate control. Blood pressure 120/76. Physical examination: Gen: This is a obese 63-year-old female in no acute distress VS: reviewed HEENT: Head is atraumatic, normocephalic. Pupils equal, round. Sclerae is anicteric. NECK: Supple. No JVD. LUNGS: Mild crackles in the bases bilaterally. No intercostal retractions. HEART: Regular rate and rhythm. No murmur. ABDOMEN: Soft No tenderness. EXTREMITIES: 1+ pedal edema. No calf tenderness. NEUROLOGICAL: Patient is awake, alert and oriented x3. Assessment: Iatrogenic fluid overload Sepsis secondary to diverticulitis/colitis Possible pancreatitis, gastritis New onset paroxysmal atrial fibrillation with RVR COPD Diabetes mellitus type 2 Gastroesophageal reflux disease Hypertension Hyperlipidemia Hypothyroidism Plan: Continue patient's home cardiac medications Continue Lasix 40 mg oral daily At the time of discharge, patient to be on oral Lasix 40 mg daily until follow- up with her director of preclinical research Start patient on Eliquis 5 mg twice daily Magnesium 4 g IV piggyback over 1 hour ordered Continue telemetry monitoring Nurse practitioner note has been reviewed, I agree with documented findings and plan of care. Patient was seen and examined. Objective - Vital Signs Vital signs: Vital Signs Temp 97.8 F 12/31/23 04:00 Pulse 76 12/31/23 04:00 Resp 14 12/31/23 04:00 BP 120/76 12/31/23 04:00 Pulse Ox 96 12/31/23 04:00 FiO2 Intake & Output 12/30/23 12/31/23 12/31/23 18:59 06:59 18:59 Intake Total 658 Output Total 2700 600 Balance -2041600 Weight 97.1 kg 93.2 kg Intake: Oral 658 Output: Urine 2700 600 Other: Voiding Method Toilet Toilet - Labs CBC & Chem 7: 12/27/23 03:52 12/31/23 07:14 Labs: Abnormal Lab Results - Last 24 Hours (Table) 12/30/23 12/30/23 12/30/23 Range/Units 11:39 16:20 19:56 POC Glucose (mg/dL) 155 H 144 H 250 H (70-110) mg/dL 12/31/23 Range/Units 06:10 POC Glucose (mg/dL) 181 H (70-110) mg/dL
[2023-12-31] MEDS: SODIUM CHLORIDE 0.9% 250 ML IV SCH (09:24)
[2023-12-31 09:45] LABS: T4, Free (Free Thyroxine) 0.89 ng/dL (0.78-2.19)
--- NOTE | 2023-12-31 10:48 | P.PCN ---
Preoperative Diagnosis: Atrial fibrillation with RVR, very symptomatic in the setting of cardiomyopathy Treated with IV magnesium 4 g over 1 hour Patient converted to sinus rhythm within 2 hours
[2023-12-31 11:30] LABS: Glucose,Whole Blood 186 mg/dL (70-110)
--- NOTE | 2023-12-31 14:49 | P.PN ---
Subjective Progress Note Date: 12/31/23 Principal diagnosis: Reason for follow-up is UTI/diverticulitis Patient is a 63-year-old female with a past medical history significant for diabetes mellitus hypertension hyperlipidemia osteoarthritis sleep apnea COPD heart failure and breast cancer patient presenting to the hospital concerning for nausea vomiting diarrhea also complaining of suprapubic pain, patient be diagnosed with a urinary tract infection and concern for possible intra-abdominal source with the CT suspicious for diverticulitis. On today's evaluation that is 12/31/2023, Patient is afebrile patient is currently on room air and denies having any shortness of breath, the patient denies any chest pain or cough, the patient denies any nausea vomiting did not have any abdominal pain and no diarrhea, apparently patient went into A-fib holding her discharge. Patient did have a creatinine 0.86 Objective - Vital Signs Vital signs: Vital Signs Temp 97.8 F 12/31/23 07:50 Pulse 72 12/31/23 11:20 Resp 17 12/31/23 11:20 BP 110/77 12/31/23 11:20 Pulse Ox 96 12/31/23 11:20 FiO2 Intake & Output 12/30/23 12/31/23 12/31/23 18:59 06:59 18:59 Intake Total 658 368 Output Total 2700 600 Balance -2041 - 368 Weight 97.1 kg 93.2 kg Intake: Oral 658 368 Output: Urine 2700 600 Other: Voiding Method Toilet Toilet Toilet - Exam GENERAL DESCRIPTION: An elderly female up in the chair in no distress RESPIRATORY SYSTEM: Unlabored breathing , decreased breath sounds at bases HEART: S1 S2 regular rate and rhythm , ABDOMEN: Soft , no tenderness EXTREMITIES: No edema feet - Labs CBC & Chem 7: 12/27/23 03:52 12/31/23 07:14 Labs: Abnormal Lab Results - Last 24 Hours (Table) 12/30/23 12/30/23 12/31/23 Range/Units 16:20 19:56 06:10 Sodium (137-145) mmol/L Chloride (98-107) mmol/L BUN (7-17) mg/dL Glucose (74-99) mg/dL POC Glucose (mg/dL) 144 H 250 H 181 H (70-110) mg/dL TSH (0.465-4.680) mIU/L 12/31/23 12/31/23 12/31/23 Range/Units 07:14 07:14 11:28 Sodium 134 L (137-145) mmol/L Chloride 97 L (98-107) mmol/L BUN 21 H (7-17) mg/dL Glucose 182 H (74-99) mg/dL POC Glucose (mg/dL) 186 H (70-110) mg/dL TSH 9.520 H (0.465-4.680) mIU/L Assessment and Plan (1) Urinary tract infection Current Visit: Yes Status: Acute Code(s): N39.0 - URINARY TRACT INFECTION, SITE NOT SPECIFIED SNOMED Code(s): 96395132 (2) Sepsis Current Visit: No Status: Acute Code(s): A41.9 - SEPSIS, UNSPECIFIED ORGANISM SNOMED Code(s): 21124404 Plan: 1patient with sepsis in this patient with fever tachycardia elevated white count meeting criteria for SIRS/sepsis source likely UTI underlying GI source such as diverticulitis/colitis not entirely excluded 2-CT abdominal pelvis is suspicious for focal diverticulitis/colitis stool for C. difficile negative urine is growing E. coli that is a sensitive pathogen 3-patient did have improvement in her respiratory status and has been off the oxygen 4patient to continue with the Rocephin and Flagyl finishing therapy while inpatient and finishing therapy with oral Ceftin and Flagyl Dictation was produced using [employer] dictation software. please excuse any grammatical, word or spelling errors. Time with Patient: Less than 30
--- NOTE | 2023-12-31 16:08 | P.PN ---
Subjective Progress Note Date: 12/31/23 Patient is a 63-year-old female came with complains of nausea vomiting diarrhea has been going on since yesterday patient is having significant diarrhea. Patient also complaining of some mild crampy abdominal pain bilateral lower quadrants patient denies any suprapubic pain patient denies any dysuria patient had fever here along with leukocytosis patient was presumed to have urinary tract infection because of mildly abnormal UTI and was given Rocephin and subsequently admitted. Patient any cough chest x-ray did not show any pneumonia. Patient feels slightly better but still nauseous. 12/24/2023 Patient is evaluated today on the medical floor, patient continues to report loose stools although does report improvement in abdominal pain. Patient had abdominal pelvis CT done which reveals concern for diverticulitis or focal colitis in the distal descending colon. There are multiple bilateral renal lesions most are stable in size and appearance from prior imaging these are noted since back in 2019. Patient is on IV ceftriaxone and oral flagyl. Urine culture does show gram negative bacilli however patient denies any urinary symptoms/dysuria. 12/25/2023 Patient is evaluated today in follow up sitting up in the chair. Reports worsening abdominal pain epigastric region and radiation to the back. Patient continues with episodes of loose stool. Febrile. 12/26/2023 Patient is evaluated today in follow-up has been continued overnight on IV ceftriaxone and oral Flagyl. Patient reports worsening epigastric discomfort at this time with tender to palpation. Patient does not oxygen having worsening diarrhea. Urine culture showing E. coli which is pansensitive at this time. Amylase and lipase are within normal limits. General surgery was consulted and following recommend to continue current antibiotics and symptomatic care. 12/27/2023 Patient is evaluated today in follow-up on the medical floor. Patient reports improvement in her diarrhea essentially negative since patient is and started on Questran. Patient currently reporting no fever chills overnight she is having some mild shortness of breath. Remains on IV ceftriaxone and IV metronidazole for positive UTI and concern for diverticulitis. Amylase and lipase are within normal limits. Patient is on room air. 12/28/2023 Is evaluated today in follow-up in the stepdown unit. Patient was transferred overnight secondary to worsening shortness of breath and concern for acute pulmonary edema. Patient was given a dose of IV Lasix in the evening 40 mg with improvement in her respiratory status patient was transferred to the cardiac unit for further monitoring. Patient has now been continued on IV Lasix 40 mg every 12 hours. Patient states that her ejection fraction in the past has been around 38%. Patient does follow with a microbiological laboratory technician out of [facility]. Has been continued on antibiotics for diverticulitis and concern for UTI 12/29/2023 Patient is evaluated today in follow-up in the cardiac stepdown unit. Patient reports improvement in her shortness of breath today. She has continued with mild lower extremity edema however her hands and arms are less edematous. Patient is now on room air with oxygen saturations of 99%. She does continue on IV Lasix 40 mg twice a day. She has adequate urinary output from this. Blood work today reveals a BUN of 10 creatinine of 0.71 sodium level of 139. Blood pressure about 155/64. 12/30/2023 Patient is evaluated today in follow-up in the cardiac stepdown unit. Patient does continue to report improvement in her edema however today she reports wor sening shortness of breath than yesterday. Patient remains on room with oxygenation duration of 96%. Her lungs are clear to auscultation. She remains on IV ceftriaxone. And oral Flagyl. 12/31/2023 Patient is evaluated today in follow-up in the cardiac stepdown unit. Patient has been transition to oral Lasix with sodium down to 134 but does not require any further doses of IV Lasix her shortness of breath has significantly improved and that she is not having any complaints of peripheral edema and no edema is noted on physical examination. Around 6:00 this morning patient went into atrial fibrillation with a rapid ventricular rate she states that she did feel the palpitations. At this time she is currently in normal sinus rhythm. Cardiology was started this patient on oral Eliquis and patient continues on her beta-damaris. Review of Systems Constitutional: Denied any fatigue denied any fever. Cardio vascular: denied any chest pain, palpitations Gastrointestinal: denied any nausea, vomiting, diarrhea Pulmonary: Reports shortness of breath improving, no cough Neurologic denied any new focal deficits All inpatient medications were reviewed and appropriate changes in these me dications as dictated in the interval history and assessment and plan. PHYSICAL EXAMINATION: GENERAL: The patient is alert and oriented x3, not in any acute distress. Obese HEENT: Pupils are round and equally reacting to light. EOMI. No scleral icterus. No conjunctival pallor. Normocephalic, atraumatic. No pharyngeal erythema. No thyromegaly. CARDIOVASCULAR: S1 and S2 present. No murmurs, rubs, or gallops. PULMONARY: Faint bibasilar crackles ABDOMEN: Soft, nontender, nondistended, normoactive bowel sounds. No palpable organomegaly. MUSCULOSKELETAL: No joint swelling or deformity. EXTREMITIES: No cyanosis, clubbing, or pedal edema. NEUROLOGICAL: Gross neurological examination did not reveal any focal deficits. SKIN: Some redness in the center of the skin folds but patient uses nystatin powder. Assessment and plan -Sepsis: due to diverticulitis/colitis patient is on IV ceftriaxone and oral flagyl and ID following. Symptoms improving. UTI less likely as cause for symptoms. -New onset atrial fibrillation with rapid ventricular rate paroxysmal now in normal sinus rhythm patient is a started on Eliquis for anticoagulation continues on her beta-damaris. -Atelectasis noted on chest xray; patient has been ordered for incentive spirometer 10 x an hour while awake.- -Acute systolic heart failure pt states echocardiogram is 38% in the past -COPD without any acute exacerbation -Type 2 diabetes mellitus -Type 2 diabetes mellitus -Gastroesophageal flux disease -Peptic ulcer disease with acute gastritis patient was started on Protonix -Hyperlipidemia -Hypertension patient is presently hypotensive -Hypothyroidism For above-mentioned chronic medical problems patient resumed appropriate home medications DVT prophylaxis: Lovenox GI prophylaxis Protonix Full Code Chest xray ordered Continue incentive spirometer 10 x an hour while awake. Repeat blood work. continue antibiotics. ID following. Now on oral Eliquis twice a day, transition to oral Lasix. The impression and plan of care has been dictated by Jovita Davis, Nurse Practitioner as directed. Dr. Jermaine MD I have performed a history and physical examination and medical decision making of this patient, discussed the same with the dictator, and agree with the dictators assessment and plan as written, documented as a scribe. Based on total visit time, I have performed more than 50% of this visit. Objective - Vital Signs Vital signs: Vital Signs Temp 97.8 F 12/31/23 07:50 Pulse 72 12/31/23 11:20 Resp 17 12/31/23 11:20 BP 110/77 12/31/23 11:20 Pulse Ox 96 12/31/23 11:20 FiO2 Intake & Output 12/30/23 12/31/23 12/31/23 18:59 06:59 18:59 Intake Total 658 368 Output Total 2700 600 Balance -2041 368 Weight 97.1 kg 93.2 kg Intake: Oral 658 368 Output: Urine 2700 600 Other: Voiding Method Toilet Toilet Toilet - Labs CBC & Chem 7: 12/27/23 03:52 12/31/23 07:14 Labs: Abnormal Lab Results - Last 24 Hours (Table) 12/30/23 12/30/23 12/31/23 Range/Units 16:20 19:56 06:10 Sodium (137-145) mmol/L Chloride (98-107) mmol/L BUN (7-17) mg/dL Glucose (74-99) mg/dL POC Glucose (mg/dL) 144 H 250 H 181 H (70-110) mg/dL TSH (0.465-4.680) mIU/L 12/31/23 12/31/23 12/31/23 Range/Units 07:14 07:14 11:28 Sodium 134 L (137-145) mmol/L Chloride 97 L (98-107) mmol/L BUN 21 H (7-17) mg/dL Glucose 182 H (74-99) mg/dL POC Glucose (mg/dL) 186 H (70-110) mg/dL TSH 9.520 H (0.465-4.680) mIU/L Assessment and Plan Time with Patient: Less than 30
[2023-12-31 16:53] LABS: Glucose,Whole Blood 176 mg/dL (70-110)
[2023-12-31 20:12] LABS: Glucose,Whole Blood 154 mg/dL (70-110)
[2024-01-01 04:27] VITALS: TEMP 97.7
[2024-01-01 05:53] LABS: Glucose,Whole Blood 152 mg/dL (70-110)
[2024-01-01 08:33] LABS: African American GFR (CKD) 69 (>60 ml/min/1.73 sqM); Anion Gap 4 mmol/L; Blood Urea Nitrogen 20 mg/dL (7-17); Calcium 9.6 mg/dL (8.4-10.2); Carbon Dioxide 35 mmol/L (22-30); Chloride 96 mmol/L (98-107); Glucose 167 mg/dL (74-99); Non-African American GFR(CKD) 60 (>60 ml/min/1.73 sqM); Potassium 4.7 mmol/L (3.5-5.1); Sodium 135 mmol/L (137-145)
[2024-01-01 09:00] VITALS: BP 134/89; PULSE 77; RESP 18
[2024-01-01 11:55] LABS: Glucose,Whole Blood 168 mg/dL (70-110)
--- NOTE | 2024-01-01 15:36 | P.PN ---
Subjective Progress Note Date: 01/01/24 Principal diagnosis: Reason for follow-up is UTI/diverticulitis Patient is a 63-year-old female with a past medical history significant for diabetes mellitus hypertension hyperlipidemia osteoarthritis sleep apnea COPD heart failure and breast cancer patient presenting to the hospital concerning for nausea vomiting diarrhea also complaining of suprapubic pain, patient be diagnosed with a urinary tract infection and concern for possible intra-abdominal source with the CT suspicious for diverticulitis. On today's evaluation that is 01/01/2024, patient has been afebrile, patient is breathing comfortably and is currently on room air, patient denies having any significant cough no chest pain shortness of breath, patient denies nausea vomiting or diarrhea and no abdominal pain, patient mention feeling much better. Patient did have a creatinine 1.0 no CBC was done today blood culture has been negative Objective - Vital Signs Vital signs: Vital Signs Temp 97.7 F 01/01/24 04:00 Pulse 77 01/01/24 08:00 Resp 18 01/01/24 08:00 BP 134/89 01/01/24 08:00 Pulse Ox 95 01/01/24 08:00 FiO2 Intake & Output 12/31/23 01/01/24 01/01/24 18:59 06:59 18:59 Intake Total 486 360 Output Total 1000 1000 600 Balance -514 -1000 -240 Weight 92.9 kg Intake: Oral 486 360 Output: Urine 1000 1000 600 Other: Voiding Method Toilet Toilet Toilet - Exam GENERAL DESCRIPTION: An elderly female up in the chair in no distress RESPIRATORY SYSTEM: Unlabored breathing , decreased breath sounds at bases HEART: S1 S2 regular rate and rhythm , ABDOMEN: Soft , no tenderness EXTREMITIES: No edema feet - Labs CBC & Chem 7: 12/27/23 03:52 01/01/24 07:32 Labs: Abnormal Lab Results - Last 24 Hours (Table) 12/31/23 12/31/23 01/01/24 Range/Units 16:52 20:11 05:52 Sodium (137-145) mmol/L Chloride (98-107) mmol/L Carbon Dioxide (22-30) mmol/L BUN (7-17) mg/dL Glucose (74-99) mg/dL POC Glucose (mg/dL) 176 H 154 H 152 H (70-110) mg/dL 01/01/24 01/01/24 Range/Units 07:32 11:53 Sodium 135 L (137-145) mmol/L Chloride 96 L (98-107) mmol/L Carbon Dioxide 35 H (22-30) mmol/L BUN 20 H (7-17) mg/dL Glucose 167 H (74-99) mg/dL POC Glucose (mg/dL) 168 H (70-110) mg/dL Assessment and Plan (1) Urinary tract infection Status: Acute Code(s): N39.0 - URINARY TRACT INFECTION, SITE NOT SPECIFIED SNOMED Code(s): 59337962 (2) Sepsis Status: Acute Code(s): A41.9 - SEPSIS, UNSPECIFIED ORGANISM SNOMED Code(s): 12111270 Plan: 1patient with sepsis in this patient with fever tachycardia elevated white count meeting criteria for SIRS/sepsis source likely UTI underlying GI source such as diverticulitis/colitis not entirely excluded 2-CT abdominal pelvis is suspicious for focal diverticulitis/colitis stool for C. difficile negative urine is growing E. coli that is a sensitive pathogen 3-patient did have improvement in her respiratory status and has been off the oxygen 4patient has shown clinical improvement and will finish with short course of oral Ceftin and Flagyl on discharge Dictation was produced using [employer] dictation software. please excuse any grammatical, word or spelling errors. Time with Patient: Less than 30
--- NOTE | 2024-01-02 03:25 | PN ---
PROGRESS NOTE SUBJECTIVE: A 63-year-old female who was admitted for GI issues. She has a history of cardiomyopathy. Follows with Dr. Silvana Hoyos at [facility]. She had iatrogenic fluid overload. She will be discharged yesterday, but she went into atrial fibrillation with RVR. I treated her with IV magnesium 4 g over 60 minutes and she converted within the next 2 hours to sinus rhythm. She has maintained sinus rhythm. From a cardiac standpoint, she is doing well. She has no chest discomfort. She feels well. Her lungs are clear. No lower extremity edema. Heart sounds S1, S2 are soft. Her blood pressure is in the normal range 101/53 and 109/55 mmHg, pulse rate in the 70s. Afebrile. IMPRESSION: Paroxysmal atrial fibrillation with rapid ventricular response, first clear diagnosis of atrial fibrillation. Suggest: 1. Continue Toprol-XL. 2. Continue Eliquis for stroke prevention. I discussed this with the patient. She may continue aspirin and statins. I would like her to see her primary bankruptcy attorney, Dr. Silvana Hoyos within a week or so. 3. I would recommend rhythm control of atrial fibrillation in the long run given her history of cardiomyopathy. She should continue lisinopril and heart failure medications as before. MMODL / IJN: [id number] /
[2024-01-03] MEDS ORDERED: Tirzepatide [Mounjaro] 5 MG/0.5 ML Pen.Injctr SQ SCH (09:00)
== END 2024-01-01 15:21 | disposition home or self-care (01) | DRG 871 ==
LOC: EC 23:00 → 4SSUR 12-23 03:53 → OBSVTOIN 12-23 08:58 → 4SSUR 12-23 16:39 → 3SCARD 12-28 05:57
PROVIDERS: ADMIT Internal Medicine; ATTEND Internal Medicine
PROC: 5A2204Z Restoration of Cardiac Rhythm, Single (ICD-10-PCS; principal; 2023-12-31)
DX: A41.51 Sepsis due to Escherichia coli [E. coli] (principal); I50.21 Acute systolic (congestive) heart failure; N39.0 Urinary tract infection, site not specified; I42.9 Cardiomyopathy, unspecified; J98.11 Atelectasis; K57.32 Diverticulitis of large intestine without perforation or abscess without bleeding; R65.20 Severe sepsis without septic shock; E03.9 Hypothyroidism, unspecified; E11.9 Type 2 diabetes mellitus without complications; E78.5 Hyperlipidemia, unspecified; I11.0 Hypertensive heart disease with heart failure; I44.7 Left bundle-branch block, unspecified; I48.0 Paroxysmal atrial fibrillation; J44.89 Other specified chronic obstructive pulmonary disease; K21.9 Gastro-esophageal reflux disease without esophagitis; G43.909 Migraine, unspecified, not intractable, without status migrainosus; M19.90 Unspecified osteoarthritis, unspecified site; K27.9 Peptic ulcer, site unspecified, unspecified as acute or chronic, without hemorrhage or perforation; K29.00 Acute gastritis without bleeding; K52.9 Noninfective gastroenteritis and colitis, unspecified; Z86.010 Personal history of colon polyps; Z79.82 Long term (current) use of aspirin; Z79.890 Hormone replacement therapy; Z79.899 Other long term (current) drug therapy; Z85.3 Personal history of malignant neoplasm of breast; Z87.440 Personal history of urinary (tract) infections; Z90.13 Acquired absence of bilateral breasts and nipples; Z79.85 Long-term (current) use of injectable non-insulin antidiabetic drugs; Z96.651 Presence of right artificial knee joint; Z71.3 Dietary counseling and surveillance
CPT/HCPCS: 36415; 71045; 71046; 71275; 74019; 74177; 80048; 80053; 81001; 82150; 83605; 83690; 83735; 83880; 84439; 84443; 85025; 85027; 85379; 86140; 87040; 87077; 87086; 87186; 87324; 87636; 94640; 94760; 96361; 96374; 96375; 96376; 99291